=== PATIENT | male | born 1940 | race Caucasian/White ===

== ENCOUNTER 2021-07-27 14:22 | Inpatient (IN) ==
[2021-07-27] MEDS ORDERED: SODIUM CHLORIDE 0.9% 1000ML 1,000 ML IV ONE ×2 (15:00→18:19)
[2021-07-27] MEDS ORDERED: ACETAMINOPHEN 1,000 MG/100 ML VIAL IV STA (15:02)
[2021-07-27 15:41] LABS: Basophils # (auto) 0.02 K/uL (0-0.2); Basophils % (auto) 0.3 %; Hematocrit (blood only) 40.5 % (42-52); Immature Granulocytes # (auto) 0.11 K/uL (0.00-0.02); Immature Granulocytes % (auto) 1.4 %; Lymphocytes # (auto) 0.59 K/uL (1.2-3.4); Lymphocytes % (auto) 7.7 %; Mean Corpuscular Hemoglobin 35.5 pg (25-34); Mean Corpuscular Hgb Conc 34.6 g/dL (32-36); Mean Corpuscular Volume 102.8 fL (80-100); Mean Platelet Volume 11.4 fL (7.4-10.4); Monocytes # (auto) 0.57 K/uL (0.11-0.59); Monocytes % (auto) 7.5 %; Neutrophils # (auto) 6.34 K/uL (1.4-6.5); Neutrophils % (auto) 83.1 %; Platelet Count 103 K/uL (130-400); RDW Coefficient of Variation 15.1 % (11.5-14.5); RDW Standard Deviation 57.2 fL (36.4-46.3); Red Blood Count 3.94 M/uL (4.7-6.1); White Blood Count 7.63 K/uL (4.8-10.8)
--- NOTE | 2021-07-27 15:46 | XRay Report ---
XR chest 1V portable HISTORY: SEPSIS COMPARISON: Chest 1228.11. FINDINGS: No focal lung consolidations to suggest pneumonia. No evidence for pulmonary edema. Mild el evation the right hemidiaphragm. There is a tortuous thoracic aorta. The heart is normal in size. No pleural fusions. No pneumothorax. IMPRESSION: No acute process. ACT 112: Negative or not required by law. Electronically signed by: Poncho Mancera M.D. 07/27/2021 3:44 PM
--- NOTE | 2021-07-27 16:00 | Electrocardiogram Report ---
Test Reason : Blood Pressure : / mmHG Vent. Rate : 099 BPM Atrial Rate : 099 BPM P-R Int : 146 ms QRS Dur : 076 ms QT Int : 362 ms P-R-T Axes : -20 -22 -10 degrees QTc Int : 464 ms Sinus rhythm with Premature supraventricular complexes and with occasional Fusion complexes Nonspecific ST and T wave abnormality Prolonged QT Abnormal ECG When compared with ECG of 19-MAY-2011 06:21, HR has increased by 53 bpm Premature atrial complexes now present Nonspecific ST and T wave abnormality now present Confirmed by Nilay Turner ([id number]) on 07/27/2021 3:59:27 PM Referred By: ED Confirmed By:Nilay Turner
[2021-07-27 16:05] LABS: BUN Creatinine Ratio 26.4 (10-20); Calcium 9.2 mg/dl (8.5-10.1); Creatinine Clr Calc Pharmacy 81.3 ml/min; Est GFR (African American) 91.9 ml/min; Est GFR (Non-African American) 79.3 ml/min; Potassium 3.6 mmol/L (3.5-5.1)
[2021-07-27 16:07] LABS: INR 1.2 (0.9-1.1); Partial Thromboplastin Ratio 1.1; Partial Thromboplastin Time 28.9 Seconds (21.0-31.0); Prothrombin Time 12.9 Seconds (9.0-12.0)
[2021-07-27 16:26] LABS: Albumin Globulin Ratio 1.1 (0.9-2); Albumin Level 3.9 gm/dl (3.4-5.0); Bilirubin,Total 1.1 mg/dl (0.2-1.0); Globulin 3.4 gm/dl (2.5-4.0); Magnesium 1.7 mg/dl (1.7-2.4); Phosphorus 3.2 mg/dl (2.5-4.9); Total Protein 7.3 gm/dl (6.0-8.3)
--- NOTE | 2021-07-27 16:49 | Emergency Department Note ---
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 He also was treated with chemotherapy all of which was given for palliation of pain, Diabetes, hyperlipidemia who presents emergency department via EMS after being found in his home for unknown downtime by his sister. The patient is a poor historian and reports that he has been weak for the past several days. He reported to me that he had been on the ground for 3 days unable to get up but to his RN he had described being in bed for 2 days and only being on the ground since today after attempting to go to the other side of his home to reach a phone to call somebody. He reports he has not had any to eat or drink during this time. Per EMS report he was found covered in urine and stool and his home was in disarray. The patient is fatigued appearing but in no acute distress, afebrile stable vital signs. He appears clinically dry. He has generalized weakness throughout without focal extremity weakness. EKG demonstrates nonspecific ST and T wave abnormalities, no overt ST elevation. Chest x-ray negative for acute cardiopulmonary process. WBC within normal limits. Hemoglobin within normal limits. Platelets 100K within prior range of values. Chemistry without metabolic acidosis. BUN/creatinine> consistent with patient's clinically dry appearance. Lactic acid 1.9 within normal limits. Electrolytes without significant abnormality. AST is elevated at 162, nonspecific and otherwise without significant abnormality. CPK is elevated at 9900. Troponin 0.07, mildly elevated. Procalcitonin is not significantly elevated. Lipase is not elevated. UA is suggestive of infection. No prior cultures available. Treatment initiated with Rocephin at this time. CT of the head, C-spine, chest, abdomen pelvis was performed. This was negative for acute traumatic findings. However, note is made of a 5.4 cm infrarenal AAA with associated short segment contained dissection. I did review this with vascular surgery, Dr. Oneill, who agrees that findings are likely incidental and it is reasonable to admit the patient here for further management of his rhabdomyolsis and uti. Case was discussed with Dr. Cordova, [facility] hospitalist, who will evaluate the patient for admission. Triage Nursing notes reviewed and agree them. Prior medical records reviewed Vital Signs: reviewed and remarkable for no significant abnormalities Differential diagnosis: Infection, dehydration, metabolic abnormality, hypo/hyperglycemia, electrolyte disturbance, anemia, hypoxia, cardiac sources, intracerebral event, toxicologic, neurologic, as well as other pathologies. ER treatment provided: See below. Diagnostics interpreted by me: ECG: Sinus rhythm with PSVC's, [address] and T wave abnormality, no overt ST elevation or depression, QTC 464, QRS 76 Cardiac Monitoring: An order for continuous cardiac monitoring was placed and demonstrated Sinus rhythm with PSVC's, 99 bpm. Laboratory studies: See below Imaging studies: See below Consultation(s): Dr. Oneill, Vascular surgery. Dr. Cordova, [facility] hospitalist, who will evaluate the patient for admission. 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 He also was treated with chemotherapy all of which was given for palliation of pain, Diabetes, hyperlipidemia who presents emergency department via EMS after being found in his home for unknown downtime by his sister. The patient is a poor historian and reports that he has been weak for the past several days. He reported to me that he had been on the ground for 3 days unable to get up but to his RN he had described being in bed for 2 days and only being on the ground since today after attempting to go to the other side of his home to reach a phone to call somebody. He reports he has not had any to eat or drink during this time. Per EMS report he was found covered in urine and stool and his home was in disarray. ROS: See above HPI for pertinent positives & negatives. A total of 10 systems reviewed and were otherwise negative. VITALS:See Below PHYSICAL EXAMINATION: GENERAL: Awake, alert, acute on chronically ill-appearing, unkempt in no distre ss HENT: Normocephalic, atraumatic. Oropharynx unremarkable. EYES: Normal conjunctiva. Sclera non-icteric. NECK: Supple. No nuchal rigidity. FROM. No JVD. RESPIRATORY: Clear to auscultation. CARDIAC: Regular rate, normal rhythm. Extremities warm and well perfused. Pulses equal. ABDOMEN: Soft, non-distended. No tenderness to palpation. No rebound or guarding. No masses. RECTAL: Deferred. MUSCULOSKELETAL: Chest examination reveals no tenderness. The back is symmetrical on inspection without obvious abnormality. There is no CVA tenderness to palpation. No joint edema. EXTREMITIES: Calves are equal size bilaterally and non-tender. No edema. No discoloration. Compartments are not tense. No pain with passive stretch. NEURO: No focal sensory or motor deficits noted. Generalized weakness through out. SKIN: No rash or jaundice noted. ED COURSE: Critical Care: I have personally spent greater than 35 minutes of critical care time in the direct management of this patient. This includes bedside care, interpretation of diagnostic studies, and testing, discussion with consultants, patient, and family members, and other required patient management activities. This 35 minutes is in excess of all separately billable procedures. Jhonathan Mims MD Past Med/Surg History Medical History Adverse anesthesia outcome "nausea" BPH with elevated PSA Diabetes Hypercholesteremia Hypertension Prostate cancer Secondary carcinoma of bone Surgical History History of hernia surgery Family History Uncle Prostate cancer Grandfather Prostate cancer Social History Smoking Status: Former smoker Second Hand Exposure: No; Do You Dip or Chew Tobacco: No; Tobacco Cessation Education Requested by Patient: No Hx Alcohol Use: Yes Alcohol type: beer, wine and hard liquor Hx Substance Use: No Preferred Language: Icelandic Rand Maker Required: No Beliefs That Will Affect Care: None marital status: Current Living Situation: Alone Current Living Situation Comment: Lives in a basement apt alone; kitchen on upper level Other Information That Helps Us Care for You: No Feels Safe at Home: Yes Safety Concerns: Feels Safe At This Time Assistive Devices: Denture - Upper, Denture - Lower and Hearing Aid - Bilateral Allergies Allergies Allergy/AdvReac Type Severity Reaction Status Date / Time meperidine Allergy Unknown Unknown Verified 07/27/21 18:31 morphine Allergy Unknown Unknown Verified 07/27/21 18:31 Home Meds Home Medications Medication Instructions Recorded Confirmed simvastatin 40 mg tablet 40 mg PO DAILY 08/27/19 07/27/21 tamsulosin 0.4 mg capsule 0.4 mg PO BID cap 08/27/19 07/27/21 alogliptin 12.5 mg tablet 12.5 mg PO QAM 07/27/21 07/27/21 aspirin 81 mg tablet,delayed 81 mg PO DAILY 07/27/21 07/27/21 release dimenhydrinate 50 mg tablet 50 mg PO DIRECTED PRN 07/27/21 07/27/21 (Dramamine) doxepin 6 mg tablet 6 mg PO HS PRN 07/27/21 07/27/21 empagliflozin 25 mg tablet 25 mg PO DAILY 07/27/21 07/27/21 hydrocodone 5 mg-acetaminophen 325 1 tab PO Q4H PRN 07/27/21 07/27/21 mg tablet lisinopril 20 mg tablet 20 mg PO BID 07/27/21 07/27/21 Previous Rx's Medication Instructions Recorded oxybutynin chloride 10 mg 10 mg PO DAILY #30 tab 01/14/20 tablet,extended release 24 hr Results & Data (ED) Vital Signs Vital Signs - 24 hr 07/27/21 14:39 07/27/21 15:00 07/27/21 16:12 Temperature 36.9 C Temperature Source Oral Pulse Rate 102 H Pulse Rate [Left] 80 Pulse Rate from SpO2 Sensor Pulse Rhythm Regular Pulse Rhythm [Left] Regular Pulse Strength Normal Pulse Strength [Left] Normal Respiratory Rate 18 18 Respiratory Effort / Characteristics Non-Labored Spontaneous Non-Labored Spontaneous Non-Labored Spontaneous Respiratory Depth Normal Normal Respiratory Pattern Regular Regular Blood Pressure 120/72 Blood Pressure [Right Arm] 102/70 Blood Pressure Mean 88 Blood Pressure Mean [Right Arm] 80 Blood Pressure Position Lying Blood Pressure Position [Right Arm] Lying Pulse Oximetry 97 100 99 Oxygen Delivery Method Room Air Room Air Room Air Sepsis Recent Fever Within 48 Hours No Sepsis New/Unexplained Change in Mental Status N/A Sepsis Action Taken by Nursing No Action Required 07/27/21 16:40 07/27/21 17:48 07/27/21 18:29 Temperature Temperature Source Pulse Rate 90 92 H Pulse Rate [Left] 90 Pulse Rate from SpO2 Sensor 88 Pulse Rhythm Regular Pulse Rhythm [Left] Pulse Strength Pulse Strength [Left] Respiratory Rate 20 19 Respiratory Effort / Characteristics Respiratory Depth Respiratory Pattern Blood Pressure 102/70 93/67 L Blood Pressure [Right Arm] 89/63 L Blood Pressure Mean 80 75 Blood Pressure Mean [Right Arm] 71 Blood Pressure Position Blood Pressure Position [Right Arm] Pulse Oximetry 96 95 94 Oxygen Delivery Method Room Air Sepsis Recent Fever Within 48 Hours Sepsis New/Unexplained Change in Mental Status Sepsis Action Taken by Nursing 07/27/21 18:56 Temperature Temperature Source Pulse Rate Pulse Rate [Left] 84 Pulse Rate from SpO2 Sensor Pulse Rhythm Pulse Rhythm [Left] Regular Pulse Strength Pulse Strength [Left] Normal Respiratory Rate 18 Respiratory Effort / Characteristics Non-Labored Spontaneous Respiratory Depth Normal Respiratory Pattern Regular Blood Pressure Blood Pressure [Right Arm] 106/56 L Blood Pressure Mean Blood Pressure Mean [Right Arm] 72 Blood Pressure Position Blood Pressure Position [Right Arm] Lying Pulse Oximetry 94 Oxygen Delivery Method Room Air Sepsis Recent Fever Within 48 Hours Sepsis New/Unexplained Change in Mental Status Sepsis Action Taken by Nursing Laboratory Data Attestation: I reviewed the patient's lab results. Result diagrams: 07/27/21 15:22 07/27/21 15:22 Lab Results 07/27/21 07/27/21 07/27/21 Range/Units 15:12 15:22 15:22 WBC 7.63 (4.8-10.8) K/uL RBC 3.94 L (4.7-6.1) M/uL Hgb 14.0 (14.0-18.0) g/dL Hct 40.5 L (42-52) % MCV 102.8 H (80-100) fL MCH 35.5 H (25-34) pg MCHC 34.6 (32-36) g/dL RDW Std Deviation 57.2 H (36.4-46.3) fL RDW Coeff of Krystyna 15.1 H (11.5-14.5) % Plt Count 103 L (130-400) K/uL MPV 11.4 H (7.4-10.4) fL Immature Gran % (Auto) 1.4 % Neut % (Auto) 83.1 % Lymph % (Auto) 7.7 % Harris % (Auto) 7.5 % Eos % (Auto) 0.0 % Baso % (Auto) 0.3 % Neut # (Auto) 6.34 (1.4-6.5) K/uL Lymph # (Auto) 0.59 L (1.2-3.4) K/uL Harris # (Auto) 0.57 (0.11-0.59) K/uL Eos # (Auto) 0.00 (0-0.5) K/uL Baso # (Auto) 0.02 (0-0.2) K/uL Immature Gran # (Auto) 0.11 H (0.00-0.02) K/uL PT 12.9 H (9.0-12.0) Seconds INR 1.2 H (0.9-1.1) APTT 28.9 (21.0-31.0) Seconds PTT Ratio 1.1 Sodium (136-145) mmol/L Potassium (3.5-5.1) mmol/L Chloride (98-107) mmol/L Carbon Dioxide (21-32) mmol/L Anion Gap (3-11) BUN (6-23) mg/dl Creatinine (0.6-1.4) mg/dl Est Cr Clr Drug Dosing ml/min Est GFR ( Amer) ml/min Est GFR (Non-Af Amer) ml/min BUN/Creatinine Ratio (10-20) Glucose (70-99(Fasting)) mg/dl Lactate (0.4-2.0) mmol/L Calcium (8.5-10.1) mg/dl Phosphorus (2.5-4.9) mg/dl Magnesium (1.7-2.4) mg/dl Total Bilirubin (0.2-1.0) mg/dl AST (13-39) U/L ALT (7-52) U/L Alkaline Phosphatase (34-104) U/L Total Creatine Kinase (30-223) U/L Troponin I (0-0.04) ng/ml Total Protein (6.0-8.3) gm/dl Albumin (3.4-5.0) gm/dl Globulin (2.5-4.0) gm/dl Albumin/Globulin Ratio (0.9-2) Lipase (11-82) U/L Procalcitonin (0-0.5) ng/ml Urine Color Urine Appearance (Clear) Urine pH (4.5-7.5) Ur Specific [place] (1.000-1.030) Urine Protein (Negative) Urine Glucose (UA) (Negative) Urine Ketones (Negative) Urine Blood (Negative) Urine Nitrite (Negative) Urine Bilirubin (Negative) Urine Urobilinogen (Negative) Ur Leukocyte Esterase (Negative) Urine WBC (Auto) (0-5) /hpf Urine RBC (Auto) (0-4) /hpf U Hyaline Cast (Auto) (0-5) /lpf U Epithel Cells (Auto) (0-5) /lpf Urine Bacteria (Auto) (Negative) WBC Casts (0) /lpf Urine Mucus (None Prsent) Urine Yeast SARS-CoV-2, RNA, NAAT NEGATIVE (NEGATIVE) 07/27/21 07/27/21 07/27/21 Range/Units 15:22 15:22 15:22 WBC (4.8-10.8) K/uL RBC (4.7-6.1) M/uL Hgb (14.0-18.0) g/dL Hct (42-52) % MCV (80-100) fL MCH (25-34) pg MCHC (32-36) g/dL RDW Std Deviation (36.4-46.3) fL RDW Coeff of Krystyna (11.5-14.5) % Plt Count (130-400) K/uL MPV (7.4-10.4) fL Immature Gran % (Auto) % Neut % (Auto) % Lymph % (Auto) % Harris % (Auto) % Eos % (Auto) % Baso % (Auto) % Neut # (Auto) (1.4-6.5) K/uL Lymph # (Auto) (1.2-3.4) K/uL Harris # (Auto) (0.11-0.59) K/uL Eos # (Auto) (0-0.5) K/uL Baso # (Auto) (0-0.2) K/uL Immature Gran # (Auto) (0.00-0.02) K/uL PT (9.0-12.0) Seconds INR (0.9-1.1) APTT (21.0-31.0) Seconds PTT Ratio Sodium 134 L (136-145) mmol/L Potassium 3.6 (3.5-5.1) mmol/L Chloride 102 (98-107) mmol/L Carbon Dioxide 22 (21-32) mmol/L Anion Gap 10 (3-11) BUN 24 H (6-23) mg/dl Creatinine 0.91 (0.6-1.4) mg/dl Est Cr Clr Drug Dosing 81.3 ml/min Est GFR ( Amer) 91.9 ml/min Est GFR (Non-Af Amer) 79.3 ml/min BUN/Creatinine Ratio 26.4 H (10-20) Glucose 180 H (70-99(Fasting)) mg/dl Lactate 1.9 (0.4-2.0) mmol/L Calcium 9.2 (8.5-10.1) mg/dl Phosphorus 3.2 (2.5-4.9) mg/dl Magnesium 1.7 (1.7-2.4) mg/dl Total Bilirubin 1.1 H (0.2-1.0) mg/dl AST 162 H (13-39) U/L ALT 51 (7-52) U/L Alkaline Phosphatase 37 (34-104) U/L Total Creatine Kinase 9936 H (30-223) U/L Troponin I 0.07 H* (0-0.04) ng/ml Total Protein 7.3 (6.0-8.3) gm/dl Albumin 3.9 (3.4-5.0) gm/dl Globulin 3.4 (2.5-4.0) gm/dl Albumin/Globulin Ratio 1.1 (0.9-2) Lipase 9 L (11-82) U/L Procalcitonin 0.39 (0-0.5) ng/ml Urine Color Urine Appearance (Clear) Urine pH (4.5-7.5) Ur Specific [place] (1.000-1.030) Urine Protein (Negative) Urine Glucose (UA) (Negative) Urine Ketones (Negative) Urine Blood (Negative) Urine Nitrite (Negative) Urine Bilirubin (Negative) Urine Urobilinogen (Negative) Ur Leukocyte Esterase (Negative) Urine WBC (Auto) (0-5) /hpf Urine RBC (Auto) (0-4) /hpf U Hyaline Cast (Auto) (0-5) /lpf U Epithel Cells (Auto) (0-5) /lpf Urine Bacteria (Auto) (Negative) WBC Casts (0) /lpf Urine Mucus (None Prsent) Urine Yeast SARS-CoV-2, RNA, NAAT (NEGATIVE) 07/27/21 Range/Units 16:49 WBC (4.8-10.8) K/uL RBC (4.7-6.1) M/uL Hgb (14.0-18.0) g/dL Hct (42-52) % MCV (80-100) fL MCH (25-34) pg MCHC (32-36) g/dL RDW Std Deviation (36.4-46.3) fL RDW Coeff of Krystyna (11.5-14.5) % Plt Count (130-400) K/uL MPV (7.4-10.4) fL Immature Gran % (Auto) % Neut % (Auto) % Lymph % (Auto) % Harris % (Auto) % Eos % (Auto) % Baso % (Auto) % Neut # (Auto) (1.4-6.5) K/uL Lymph # (Auto) (1.2-3.4) K/uL Harris # (Auto) (0.11-0.59) K/uL Eos # (Auto) (0-0.5) K/uL Baso # (Auto) (0-0.2) K/uL Immature Gran # (Auto) (0.00-0.02) K/uL PT (9.0-12.0) Seconds INR (0.9-1.1) APTT (21.0-31.0) Seconds PTT Ratio Sodium (136-145) mmol/L Potassium (3.5-5.1) mmol/L Chloride (98-107) mmol/L Carbon Dioxide (21-32) mmol/L Anion Gap (3-11) BUN (6-23) mg/dl Creatinine (0.6-1.4) mg/dl Est Cr Clr Drug Dosing ml/min Est GFR ( Amer) ml/min Est GFR (Non-Af Amer) ml/min BUN/Creatinine Ratio (10-20) Glucose (70-99(Fasting)) mg/dl Lactate (0.4-2.0) mmol/L Calcium (8.5-10.1) mg/dl Phosphorus (2.5-4.9) mg/dl Magnesium (1.7-2.4) mg/dl Total Bilirubin (0.2-1.0) mg/dl AST (13-39) U/L ALT (7-52) U/L Alkaline Phosphatase (34-104) U/L Total Creatine Kinase (30-223) U/L Troponin I (0-0.04) ng/ml Total Protein (6.0-8.3) gm/dl Albumin (3.4-5.0) gm/dl Globulin (2.5-4.0) gm/dl Albumin/Globulin Ratio (0.9-2) Lipase (11-82) U/L Procalcitonin (0-0.5) ng/ml Urine Color Welcome Urine Appearance Turbid A (Clear) Urine pH 5.0 (4.5-7.5) Ur Specific [place] 1.020 (1.000-1.030) Urine Protein 2+ H (Negative) Urine Glucose (UA) Trace H (Negative) Urine Ketones 1+ H (Negative) Urine Blood 3+ H (Negative) Urine Nitrite Positive A (Negative) Urine Bilirubin 1+ H (Negative) Urine Urobilinogen Negative (Negative) Ur Leukocyte Esterase 2+ H (Negative) Urine WBC (Auto) >30 H (0-5) /hpf Urine RBC (Auto) >30 H (0-4) /hpf U Hyaline Cast (Auto) 10-30 H (0-5) /lpf U Epithel Cells (Auto) >30 H (0-5) /lpf Urine Bacteria (Auto) 4+ H (Negative) WBC Casts 1-5 H (0) /lpf Urine Mucus Present A (None Prsent) Urine Yeast Not Reportable SARS-CoV-2, RNA, NAAT (NEGATIVE) Administered Medications Acetaminophen (Acetaminophen 325 Mg Tab) 650 mg PO Q4H PRN PRN Reason: Pain or Fever Stop: 08/26/21 21:58 Last Admin: 07/27/21 22:42 Dose: 650 mg Documented by: [id number] Hydrocodone Bitart/Acetaminophen (Hydrocodone/Acetamophen 5/325mg Tab) 1 tab PO Q4H PRN PRN Reason: Pain Stop: 08/11/21 00:56 Last Admin: 07/28/21 01:55 Dose: 1 tab Documented by: [id number] Heparin Sodium (Porcine) (Heparin Sod 5,000 Unit/0.5 Ml Vial) 5,000 units SQ Q8 MICHAEL Stop: 08/26/21 21:59 Last Admin: 07/27/21 23:31 Dose: 5,000 units Documented by: [id number] Sodium Chloride (Nss 1000ml) 1,000 mls @ 150 mls/hr IV .Q6H40M [facility] Stop: 07/28/21 11:18 Last Admin: 07/27/21 22:30 Dose: 150 mls/hr Documented by: [id number] Insulin Aspart (Insulin Aspart Per Unit) 0 units SC ACHS [facility] Stop: 08/26/21 21:58 Last Admin: 07/27/21 23:29 Dose: 5 units Documented by: [id number] Cosigned by: [id number] Insulin Glargine (Insulin Glargine Solostar 100 Units/Ml 3 Ml Pen) 9 units SC BID [facility] Stop: 08/26/21 21:58 Last Admin: 07/27/21 23:28 Dose: 9 units Documented by: [id number] Cosigned by: [id number] Menthol (Cough Drop (Sugar Free) Kin 24 Kin/1 Box) 1 kin BUCCAL PRN PRN PRN Reason: Sore Throat Stop: 08/26/21 22:16 Last Admin: 07/27/21 22:42 Dose: 1 kin Documented by: [id number] Tamsulosin HCl (Tamsulosin Hcl 0.4 Mg Cap) 0.4 mg PO BID [facility] Stop: 08/26/21 21:58 Last Admin: 07/27/21 23:31 Dose: 0.4 mg Documented by: [id number] Discontinued Medications Sodium Chloride (Nss 1000ml) 1,000 mls @ 999 mls/hr IV .Q1H1M ONE Stop: 07/27/21 16:00 Last Infusion: 07/27/21 16:24 Dose: 0 mls/hr Documented by: [id number] Admin: 07/27/21 15:23 Dose: 999 mls/hr Documented by: [id number] Acetaminophen (Ofirmev) 1,000 mg in 100 mls @ 400 mls/hr IV NOW STA Stop: 07/27/21 15:16 Last Infusion: 07/27/21 16:24 Dose: 0 mls/hr Documented by: [id number] Admin: 07/27/21 15:24 Dose: 400 mls/hr Documented by: [id number] Sodium Chloride (Nss 1000ml) 1,000 mls @ 999 mls/hr IV .Q1H1M ONE Stop: 07/27/21 19:19 Last Infusion: 07/27/21 20:47 Dose: 0 mls/hr Documented by: [id number] Admin: 07/27/21 19:33 Dose: 999 mls/hr Documented by: [id number] Ceftriaxone Sodium (Rocephin) 2,000 mg in 70 mls @ 140 mls/hr IV NOW STA Stop: 07/27/21 18:48 Last Infusion: 07/27/21 19:32 Dose: 0 mls/hr Documented by: [id number] Admin: 07/27/21 18:57 Dose: 140 mls/hr Documented by: [id number] Ioversol (Optiray 320 100ml) 94 ml IV ONCE ONE Stop: 07/27/21 17:13 Last Admin: 07/27/21 17:12 Dose: 94 ml Documented by: [id number] Imaging Data Radiologist's Impression: Abdomen/Pelvis CT 07/27/21 15:00 CT abd pelvis IV con only CLINICAL HISTORY: Weakness. Patient found laying in bed for 2 days. Bruising. COMPARISON STUDY: 08/13/2019 CT DOSE: TECHNIQUE: Standard CT of the Abdomen and Pelvis was performed with IV contrast. A dose lowering technique was utilized adhering to the principles of ALARA. Contrast Volume: Optiray 320, 94 ml. The patient did not receive oral contrast. FINDINGS: There is breathing and patient motion artifact present. Abdominal cavity: There is no evidence for abdominal mass, adenopathy or ascites. There is a small ventral anterior abdominal wall hernia above the umbilicus containing mesenteric fat. No bowel loop herniation is seen. Liver: There is homogeneous attenuation of the liver parenchyma. There is no evidence for enhancing mass lesion. Spleen: There is homogeneous attenuation of the splenic parenchyma. There is no enhancing mass lesion. Pancreas: There is homogeneous attenuation of the pancreatic parenchyma. There is no evidence for mass lesion or peripancreatic fluid collection. Gall Bladder: The gallbladder is well distended with no evidence for intraluminal calculi, wall thickening or pericholecystic edema. Adrenal glands: There are stable low-attenuation adrenal nodules characteristic of adenomas. There is no evidence for enhancing mass lesion. Kidneys: There is homogeneous attenuation of the renal parenchyma bilaterally. There is no evidence for renal calculus or hydronephrosis. There is no evidence for enhancing mass. Sharply defined simple left renal cyst is present with no further follow-up necessary for this benign finding. Bowel: The bowel loops are normally placed within the abdomen and pelvis without evidence for dilatation or obstruction. However, there is evidence for mild fecal stasis. Mild fecal impaction without evidence for obstruction. There is mild sigmoid diverticulosis without evidence for diverticulitis. There are no inflammatory changes present. There is no evidence for free air. There is no evidence for an inflamed appendix. Bladder: Rodrigues catheter is in place. : There is no evidence for pelvic mass or adenopathy. There is no evidence for pelvic ascites. Vasculature: There is a 5.4 cm infrarenal abdominal aortic aneurysm with large thrombus present. There is a small partial dissection within the thrombus as seen on images 291 to 318. There is no evidence for leakage. It does not extend more proximally or distally. Extensive atherosclerotic calcification is also present.. Osseous structures: There is no acute osseous pathology. Degenerative changes are seen within the spine and both hips. IMPRESSION: 1. 5.4 cm infrarenal abdominal aortic aneurysm with a short segment of contained dissection. No evidence for leakage. 2. Mild fecal impaction and fecal stasis without evidence for dilatation or obstruction. 3. No other evidence for acute intra-abdominal pelvic abnormality. 4. Additional nonacute findings are delineated above. ACT 112: Negative or not required by law. Electronically signed by: Piter Villeda M.D. 07/27/2021 5:[address] 07/27/21 15:00 CT cervical spine wo con CLINICAL HISTORY: Weakness. Patient found laying in bed for 2 days. Bruising COMPARISON STUDY: No previous studies for comparison. CT DOSE: TECHNIQUE: Standard CT of the Cervical Spine was performed without IV contrast. A dose lowering technique was utilized adhering to the principles of ALARA. FINDINGS: Bones: The bones are osteopenic. There is no evidence for an acute fracture or malalignment. The heights of the vertebral bodies are maintained. The vertebral bodies are in anatomic alignment. The odontoid is intact. Degenerative changes are seen at the atlantoaxial articulation. Disc spaces: Marked disc space narrowing is present from C3 through C7 with endplate sclerosis and osteophyte formation. Apophyseal joints: Degenerative apophyseal joint disease is also seen throughout the cervical spine. Soft tissues: The prevertebral soft tissues are within normal limits. IMPRESSION: 1. Osteopenia with no acute osseous pathology. 2. Marked degenerative disc and degenerative joint disease. ACT 112: Negative or not required by law. Electronically signed by: Piter Villeda M.D. 07/27/2021 5:[address] 07/27/21 15:00 CT chest diagnostic w con CLINICAL HISTORY: Weakness. Patient found lying in bed for 2 days. Bruising. COMPARISON STUDY: 08/13/2019 CT DOSE: TECHNIQUE: Standard CT of the Chest was performed with IV contrast. A dose lowering technique was utilized adhering to the principles of ALARA. Contrast Volume: Optiray 320, 94 ml FINDINGS: The study is limited due to breathing motion artifact. Airway: The airway is clear. No endobronchial lesion is identified. Lungs: The lungs are clear of acute alveolar opacities, air bronchograms or pulmonary nodules. There is mild dependent edema at the lung bases bilaterally. Pleura: There is no evidence for pleural effusion. There is no evidence for pneumothorax. Mediastinum: There is no evidence for pathologic adenopathy. The heart size is within normal limits. The thoracic aorta is within normal limits. There is no evidence for pericardial effusion. Osseous structures: There is no acute osseous pathology. A bone island is again seen with what appears to be the T8 vertebral body on the left.1 IMPRESSION: No acute chest disease. ACT 112: Negative or not required by law. Electronically signed by: Piter Villeda M.D. 07/27/2021 5:28 PM Chest X-Ray 07/27/21 15:00 XR chest 1V portable HISTORY: SEPSIS COMPARISON: Chest 1228.11. FINDINGS: No focal lung consolidations to suggest pneumonia. No evidence for pulmonary edema. Mild elevation the right hemidiaphragm. There is a tortuous thoracic aorta. The heart is normal in size. No pleural fusions. No pneumothorax. IMPRESSION: No acute process. ACT 112: Negative or not required by law. Electronically signed by: Poncho Mancera M.D. 07/27/2021 3:[address] 07/27/21 15:00 CT head/brain wo con CLINICAL HISTORY: Weakness. Patient found laying in bed for 2 days. COMPARISON STUDY: No previous studies for comparison. CT DOSE: 3335.78 mGy.cm TECHNIQUE: Standard CT of the Brain was performed without IV contrast. A dose lowering technique was utilized adhering to the principles of ALARA. FINDINGS: Extraaxial space: There is no evidence for subdural hematoma. There are no extra-axial fluid collections. Ventricles and cisterns: The ventricles are mildly dilated bilaterally. There is no evidence for midline shift or mass effect. Parenchyma: There is no subarachnoid or intraparenchymal hemorrhage. There is no evidence for an acute infarct or cerebral edema. There is mild cerebral cortical atrophy and decreased attenuation in the periventricular white matter representing remote small vessel disease. There are no gross mass lesions. Osseous structures: There is no evidence for an acute fracture. The visualized paranasal sinuses are clear. The mastoid air cells are clear bilaterally. Soft tissues: There is no evidence for focal soft tissue swelling. IMPRESSION: 1. No acute intracerebral pathology. 2. Cerebral cortical atrophy and remote small vessel disease. ACT 112: Negative or not required by law. Electronically signed by: Piter Villeda M.D. 07/27/2021 5:19 PM Discharge Plan Visit Data Chief Complaint: Weakness ED Provider: Jhonathan Mims Discharge Problem: Rhabdomyolysis, Elevated troponin, AAA (abdominal aortic aneurysm), Acute UTI, Aortic dissection, abdominal Patient Disposition: Admitted As Inpatient Discharge Instructions Interventions: ED Discharge Assessment Last Done: 07/27/21 21:21 Discharge Problem: Rhabdomyolysis Qualifiers: Rhabdomyolysis type: non-traumatic Qualified Code(s): M62.82 - Rhabdomyolysis AAA (abdominal aortic aneurysm) Qualifiers: Presence of rupture: without rupture Qualified Code(s): I71.4 - Abdominal aortic aneurysm, without rupture
[2021-07-27 17:02] LABS: Appearance Urine Turbid (Clear); Bacteria Urine Automated 4+ (Negative); Blood Urine 3+ (Negative); Color Urine Orange; Epithelial Cell Urine Auto >30 /lpf (0-5); Glucose Urine UA Trace (Negative); Ketones Urine 1+ (Negative); Leukocyte Esterase Urine 2+ (Negative); Nitrite Urine Positive (Negative); Protein Urine 2+ (Negative); RBC Urine Automated >30 /hpf (0-4); Urobilinogen Urine Negative (Negative); WBC Urine Automated >30 /hpf (0-5)
[2021-07-27 17:04] LABS: Bilirubin Urine 1+ (Negative)
[2021-07-27] MEDS ORDERED: OPTIRAY 320 100ml IV ONE (17:12)
--- NOTE | 2021-07-27 17:20 | CT Scan Report ---
CT head/brain wo con CLINICAL HISTORY: Weakness. Patient found laying in bed for 2 days. COMPARISON STUDY: No previous studies for comparison. CT DOSE: 3335.78 mGy.cm TECHNIQUE: Standard CT of the Brain was performed without IV contrast. A dose lowering technique was utilized adhering to the principles of ALARA. FINDINGS: Extraaxial space: There is no evidence for subdural hematoma. There are no extra-axial fluid collecti ons. Ventricles and cisterns: The ventricles are mildly dilated bilaterally. There is no evidence for midl ine shift or mass effect. Parenchyma: There is no subarachnoid or intraparenchymal hemorrhage. There is no evidence for an acut e infarct or cerebral edema. There is mild cerebral cortical atrophy and decreased attenuation in the periventricular white matter representing remote small vessel disease. There are no gross mass lesio ns. Osseous structures: There is no evidence for an acute fracture. The visualized paranasal sinuses are clear. The mastoid air cells are clear bilaterally. Soft tissues: There is no evidence for focal soft tissue swelling. IMPRESSION: 1. No acute intracerebral pathology. 2. Cerebral cortical atrophy and remote small vessel disease. ACT 112: Negative or not required by law. Electronically signed by: Piter Villeda M.D. 07/27/2021 5:19 PM
--- NOTE | 2021-07-27 17:23 | CT Scan Report ---
CT cervical spine wo con CLINICAL HISTORY: Weakness. Patient found laying in bed for 2 days. Bruising COMPARISON STUDY: No previous studies for comparison. CT DOSE: TECHNIQUE: Standard CT of the Cervical Spine was performed without IV contrast. A dose lowering monica hnique was utilized adhering to the principles of ALARA. FINDINGS: Bones: The bones are osteopenic. There is no evidence for an acute fracture or malalignment. The heig hts of the vertebral bodies are maintained. The vertebral bodies are in anatomic alignment. The odont oid is intact. Degenerative changes are seen at the atlantoaxial articulation. Disc spaces: Marked disc space narrowing is present from C3 through C7 with endplate sclerosis and os teophyte formation. Apophyseal joints: Degenerative apophyseal joint disease is also seen throughout the cervical spine. Soft tissues: The prevertebral soft tissues are within normal limits. IMPRESSION: 1. Osteopenia with no acute osseous pathology. 2. Marked degenerative disc and degenerative joint disease. ACT 112: Negative or not required by law. Electronically signed by: Piter Villeda M.D. 07/27/2021 5:22 PM
--- NOTE | 2021-07-27 17:29 | CT Scan Report ---
CT chest diagnostic w con CLINICAL HISTORY: Weakness. Patient found lying in bed for 2 days. Bruising. COMPARISON STUDY: 08/13/2019 CT DOSE: TECHNIQUE: Standard CT of the Chest was performed with IV contrast. A dose lowering technique was u tilized adhering to the principles of ALARA. Contrast Volume: Optiray 320, 94 ml FINDINGS: The study is limited due to breathing motion artifact. Airway: The airway is clear. No endobronchial lesion is identified. Lungs: The lungs are clear of acute alveolar opacities, air bronchograms or pulmonary nodules. There is mild dependent edema at the lung bases bilaterally. Pleura: There is no evidence for pleural effusion. There is no evidence for pneumothorax. Mediastinum: There is no evidence for pathologic adenopathy. The heart size is within normal limits. The thoracic aorta is within normal limits. There is no evidence for pericardial effusion. Osseous structures: There is no acute osseous pathology. A bone island is again seen with what appear s to be the T8 vertebral body on the left.1 IMPRESSION: No acute chest disease. ACT 112: Negative or not required by law. Electronically signed by: Piter Villeda M.D. 07/27/2021 5:28 PM
--- NOTE | 2021-07-27 17:41 | CT Scan Report ---
CT abd pelvis IV con only CLINICAL HISTORY: Weakness. Patient found laying in bed for 2 days. Bruising. COMPARISON STUDY: 08/13/2019 CT DOSE: TECHNIQUE: Standard CT of the Abdomen and Pelvis was performed with IV contrast. A dose lowering monica hnique was utilized adhering to the principles of ALARA. Contrast Volume: Optiray 320, 94 ml. The patient did not receive oral contrast. FINDINGS: There is breathing and patient motion artifact present. Abdominal cavity: There is no evidence for abdominal mass, adenopathy or ascites. There is a small ve ntral anterior abdominal wall hernia above the umbilicus containing mesenteric fat. No bowel loop her niation is seen. Liver: There is homogeneous attenuation of the liver parenchyma. There is no evidence for enhancing m ass lesion. Spleen: There is homogeneous attenuation of the splenic parenchyma. There is no enhancing mass lesion . Pancreas: There is homogeneous attenuation of the pancreatic parenchyma. There is no evidence for mas s lesion or peripancreatic fluid collection. Gall Bladder: The gallbladder is well distended with no evidence for intraluminal calculi, wall thick ening or pericholecystic edema. Adrenal glands: There are stable low-attenuation adrenal nodules characteristic of adenomas. There is no evidence for enhancing mass lesion. Kidneys: There is homogeneous attenuation of the renal parenchyma bilaterally. There is no evidence f or renal calculus or hydronephrosis. There is no evidence for enhancing mass. Sharply defined simple left renal cyst is present with no further follow-up necessary for this benign finding. Bowel: The bowel loops are normally placed within the abdomen and pelvis without evidence for dilatat ion or obstruction. However, there is evidence for mild fecal stasis. Mild fecal impaction without ev idence for obstruction. There is mild sigmoid diverticulosis without evidence for diverticulitis. The re are no inflammatory changes present. There is no evidence for free air. There is no evidence for a n inflamed appendix. Bladder: Rodrigues catheter is in place. : There is no evidence for pelvic mass or adenopathy. There is no evidence for pelvic ascites. Vasculature: There is a 5.4 cm infrarenal abdominal aortic aneurysm with large thrombus present. Ther e is a small partial dissection within the thrombus as seen on images 291 to 318. There is no evidenc e for leakage. It does not extend more proximally or distally. Extensive atherosclerotic calcificatio n is also present.. Osseous structures: There is no acute osseous pathology. Degenerative changes are seen within the spi ne and both hips. IMPRESSION: 1. 5.4 cm infrarenal abdominal aortic aneurysm with a short segment of contained dissection. No evide nce for leakage. 2. Mild fecal impaction and fecal stasis without evidence for dilatation or obstruction. 3. No other evidence for acute intra-abdominal pelvic abnormality. 4. Additional nonacute findings are delineated above. ACT 112: Negative or not required by law. Electronically signed by: Piter Villeda M.D. 07/27/2021 5:39 PM
[2021-07-27 17:50] LABS: Mucus Urine Present (None Prsent)
[2021-07-27] MEDS ORDERED: cefTRIAXone SODIUM 2,000 MG/70 ML BAG IV STA (18:19)
--- NOTE | 2021-07-27 18:37 | History & Physical Report ---
Date of Service July 27, 2021 Assessment & Plan (1) Weakness: Plan: Gato Cazares is an 81-year-old male with history of abdominal aortic aneurysm, BPH, prostate cancer with metastasis, no history of cardiac disease who presents after being down for 1 day on the floor with 3 additional days of weakness preceded by chills and sweats. He is found to have a infrarenal abdominal aortic aneurysm of 5.4 cm with small area of contained dissection, was discussed with vascular surgery by ER prior to admission as noted and thought to be incidental. Weakness, ?UTI No leukocytosis Hemoglobin 14 Chronic macrocytosis, folate/B12 pending Sodium 134, potassium normal Bilirubin 1.1, AST 162 acutely elevated, ALT normal CK 9936 Troponin 0.07. EKG w/o territorial ST segment changes UA infected vs contaminated appearing, culture pending. Patient with 2 days of chills prior to onset - BC pending Covid negative Procalcitonin negative -CT-A/P: AAA 5.4cm short segment contained dissection infrarenal. Vascular consulted prior to admit, felt incidental. Recommended patient can be [place] [facility] consult but no acute intervention at this time. Low suspicion for acs -CTA/P: Frequent bacterial stasis without obstruction. No intra-abdominal pelvic abnormality. -CTC-spine: Osteopenia, no acute osseous pathology/fracture. -CTchest: No acute chest disease CThead: No acute intracerebral pathology, peripheral atrophy and remote small vessel disease appreciated CXR: No acute process Patient reports he takes some meds in the morning, and then each pill at night. Is a poor historian of his medications, and says he used to use a pillbox but has not used this in a long time. Does try to manage his own meds. Concern that patient does not have adequate help to manage medications at home. BSG 180 on admission Lactate 1.9 (2) UTI (urinary tract infection): Plan: See above (3) Rhabdomyolysis: Plan: CK 9936, due to being down for an extended period of time ACr 0.91, no history of renal disease or cardiac disease/CHF per patient Received 2 L NSS bolus in ER with improvement in blood pressure, intermittently with soft pressures Continue NSS 150 cc/h BMP daily, CK daily (4) BPH with elevated PSA: Plan: Rodrigues in place Continue tamsulosin, doxepin (5) AAA (abdominal aortic aneurysm): Plan: - See above, CT-A/P: AAA 5.4cm short segment contained dissection infrarenal. Thought to be incidental, recommended for admission and management for weakness as above. Will keep on consult Low suspicion for ACS as cause of weakness - <5cm at last imaging per pt (6) Elevated troponin: Plan: No history of ACS/cardiac disease per patient Troponin 0 0.07 on admission, suspect demand/filtration in the setting of rhabdo EKG without acute territorial ST changes Trend troponin x3 TTE pending - AMANDA held for hypotension (7) Diabetes: Plan: Patient with medication adjustments as outpatient, reports has been peeing a lot for the last year A1c pending Weight-based basal bolus Glargine 9 units twice daily SSI range 1001 40, CF 45, ratio 15 Glucose checks AC/at bedtime Hold home antiglycemic's (8) Hypercholesteremia: Plan: Continue statin Plan: DVT prophylaxis: SCDs/hep Diet: DM Disposition: Medical with telemetry CODE STATUS: DNR/DNI per patient CM consulted, patient manages no meds at home and does not use a pillbox and is somewhat poor historian of medications, and concern that he may not be taking pills accurately. History of Present Illness Primary Care Provider: NO PCP Gato Cazares is an 81-year-old male with history of abdominal aortic aneurysm, BPH, prostate cancer with metastasis, no history of cardiac disease who presents after being down for 1 day on the floor with 3 additional days of weakness preceded by chills and sweats. He is found to have a infrarenal abdominal aor tic aneurysm of 5.4 cm with small area of contained dissection, was discussed with vascular surgery by ER prior to admission as noted and thought to be incidental. Admit with found down, weakness, unclear downtime. Rhabdo and UTI. Poor historian. Weak few days, told ER down 3 nurse in bed 2 then down for 1. EMS found home in disarray covered in stool/urine. 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 Recent hx unclear as poor historian. Trop 0.07. Lives alone. Reports he has felt weak. "I woke up so damn cold and shaking several, 3 days ago." Followed by progressive weakness. Shaking when trying to stand. Was shaking 'not like I was cold, just shaking all over'. No cough, no shortness of breath. no nausea, vomiting, or diarrhea No fevers, chills, or sweats today but feels he started of with some chills and sweats No change in sensation in the hands or feet No burning with urination at home. PCP: [facility] for primary care. Pt does not know medications by heart. Keeps medicatiosn in a box Takes lisinopril. Reports sometimes he takes on of each in the morning, sometimes one of each at night. Doesn't use a pill box. Reports Dr. Grant at the [facility] switched his diabetes medicine to help with excessive urination. Has been been a lot more in the last year, no recent change. Reports he still takes Lupron shot every 6 months. Lupron prescribed by Dr. Mustafa per pt Medical History: Reviewed Medications: Reviewed, patient is not a good historian and cannot give all of his medications Surgical History: Reviewed Allergies: Reviewed Social History: Denies tobacco, alcohol, recreational drug use Code Status: DNR/DNI Allergies Allergy/AdvReac Type Severity Reaction Status Date / Time meperidine Allergy Unknown Unknown Verified 07/27/21 18:31 morphine Allergy Unknown Unknown Verified 07/27/21 18:31 Home Medications Medication Instructions Recorded Confirmed Type simvastatin 40 mg tablet 40 mg PO DAILY 08/27/19 09/12/19 History tamsulosin 0.4 mg capsule 0.8 mg PO DAILY cap 08/27/19 09/12/19 History oxybutynin chloride 10 mg 10 mg PO DAILY #30 tab 01/14/20 01/14/20 Rx tablet,extended release 24 hr alogliptin 12.5 mg tablet 12.5 mg PO QAM 07/27/21 07/27/21 History aspirin 81 mg tablet,delayed 81 mg PO DAILY 07/27/21 07/27/21 History release dimenhydrinate 50 mg tablet 50 mg PO DIRECTED PRN 07/27/21 07/27/21 History (Dramamine) doxepin 6 mg tablet 6 mg PO HS PRN 07/27/21 07/27/21 History empagliflozin 25 mg tablet 25 mg PO DAILY 07/27/21 07/27/21 History hydrocodone 5 mg-acetaminophen 325 1 tab PO Q4H PRN 07/27/21 07/27/21 History mg tablet lisinopril 20 mg tablet 20 mg PO BID 07/27/21 07/27/21 History Past Med/Surg History Medical History Adverse anesthesia outcome "nausea" BPH with elevated PSA Diabetes Hypercholesteremia Hypertension Prostate cancer Secondary carcinoma of bone Surgical History History of hernia surgery Family History Uncle Prostate cancer Grandfather Prostate cancer Social History Smoking Status: Never smoker Hx Alcohol Use: No Preferred Language: Irish Beliefs That Will Affect Care: None marital status: Feels Safe at Home: Yes Review of Systems Review of Systems: All systems reviewed & are unremarkable except as noted in HPI & below Physical Exam 2 Physical Exam: General: Awakens easily to voice, alert, oriented to name, place, month, and year.. NAD. Cooperative. HEENT: Atraumatic, normocephalic. Visual acuity grossly intact, hearing grossly intact. Pulm: CTAB A&P. -wheezes, -rales, -rhonchi. Symmetrical chest rise. No increase in work of breathing. No respiratory distress. Cardiac: RRR, -mrg. Radial pulses intact and symmetrical. Abdominal: Nontender, nondistended, soft. BS present. : Rodrigues in place. Left-sided inguinal erythematous patch without purulence/discharge/ulceration. 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 Ankle dorsiflexion/plantar flexion intact bilaterally, bilaterally weak with hip flexion to antigravity 4-/5 bilat. lower extremities with intact sensation to soft touch and cold temperature bilaterally without deficit or asymmetry. Results & Data Results & Data ([facility]) Vital Signs (Past 12 Hours) Vital Signs Temp Pulse Pulse Resp BP BP Pulse Ox 07/27/21 17:48 93/67 L 95 07/27/21 16:40 90 20 102/70 96 07/27/21 16:12 80 18 102/70 99 07/27/21 15:00 100 07/27/21 14:39 36.9 C 102 H 18 120/72 97 PG Care Time/CCT Total # of Minutes Spent Total Time Spent with Patient: Total time spent is greater than 50% in coordination of care (as documented) at patient's floor/unit and/or counseling patient: Coding Level of Care Code 73502 Initial Inpt Care Lvl 3 Diagnoses Weakness R53.1 UTI (urinary tract infection) N39.0 Rhabdomyolysis M62.82 BPH with elevated PSA N40.0; R97.20 AAA (abdominal aortic aneurysm) I71.4 Elevated troponin R77.8 Diabetes E11.9 Hypercholesteremia E78.00
[2021-07-27] MEDS ORDERED: DEXTROSE 50% 50 ML SYRINGE IV PRN (21:59)
[2021-07-27] MEDS ORDERED: CARBOHYDRATES FOR HYPOGLYCEMIA PO PRN (21:59)
[2021-07-27] MEDS ORDERED: GLUCOSE 10 TABS/TUBE PO PRN (21:59)
[2021-07-27] MEDS ORDERED: GLUCAGON FOR INJ 1 MG VIAL SQ PRN (21:59)
[2021-07-27] MEDS ORDERED: ACETAMINOPHEN 325 MG TAB PO PRN (21:59)
[2021-07-27] MEDS ORDERED: GLUCOSE 40% GEL 15 GM TUBE PO PRN (21:59)
[2021-07-27] MEDS ORDERED: COUGH DROP (SUGAR FREE) LOZ 24 LOZ/1 BOX BUCCAL PRN (22:17)
[2021-07-27] MEDS: SODIUM CHLORIDE 0.9% 1000ML 1,000 ML IV SCH (22:30)
[2021-07-27] MEDS: INSULIN GLARGINE SOLOSTAR 100 UNITS/ML 3 ML PEN SC SCH (23:28)
[2021-07-27] MEDS: INSULIN ASPART PER UNIT SC SCH (23:29)
[2021-07-27] MEDS: HEPARIN SOD 5,000 UNIT/0.5 ML VIAL SQ SCH (23:31)
[2021-07-27] MEDS: TAMSULOSIN HCL 0.4 MG CAP PO SCH (23:31)
[2021-07-27 23:50] LABS: Folate (Folic Acid) > 22.30 ng/ml (>5.38)
[2021-07-27 23:51] LABS: Vitamin B12 403 pg/ml (180-914)
[2021-07-28] MEDS: HYDROCODONE/ACETAMOPHEN 5/325MG TAB PO PRN ×3 (01:55→21:33)
[2021-07-28 04:32] LABS: Hematocrit (blood only) 35.5 % (42-52); Hemoglobin 12.1 g/dL (14.0-18.0); Mean Corpuscular Hemoglobin 35.2 pg (25-34); Mean Corpuscular Hgb Conc 34.1 g/dL (32-36); Mean Corpuscular Volume 103.2 fL (80-100); RDW Coefficient of Variation 15.1 % (11.5-14.5); RDW Standard Deviation 57.1 fL (36.4-46.3); Red Blood Count 3.44 M/uL (4.7-6.1); White Blood Count 4.98 K/uL (4.8-10.8)
[2021-07-28 04:53] LABS: Troponin I 0.04 ng/ml (0-0.04)
[2021-07-28 05:05] LABS: Mean Platelet Volume 10.8 fL (7.4-10.4); Platelet Count 84 K/uL (130-400)
[2021-07-28 05:06] LABS: Basophils # (auto) 0.02 K/uL (0-0.2); Basophils % (auto) 0.4 %; Eosinophils # (auto) 0.01 K/uL (0-0.5); Eosinophils % (auto) 0.2 %; Immature Granulocytes # (auto) 0.04 K/uL (0.00-0.02); Immature Granulocytes % (auto) 0.8 %; Lymphocytes # (auto) 0.72 K/uL (1.2-3.4); Lymphocytes % (auto) 14.5 %; Monocytes # (auto) 0.54 K/uL (0.11-0.59); Monocytes % (auto) 10.8 %; Neutrophils # (auto) 3.65 K/uL (1.4-6.5); Neutrophils % (auto) 73.3 %; Platelet Estimate Decreased (Normal)
[2021-07-28 05:29] LABS: Albumin Globulin Ratio 1.2 (0.9-2); Albumin Level 3.4 gm/dl (3.4-5.0); BUN Creatinine Ratio 35.4 (10-20); Bilirubin,Total 0.5 mg/dl (0.2-1.0); Calcium 8.3 mg/dl (8.5-10.1); Creatinine Clr Calc Pharmacy 93.2 ml/min; Est GFR (African American) 98.3 ml/min; Est GFR (Non-African American) 84.8 ml/min; Globulin 2.8 gm/dl (2.5-4.0); Potassium 3.6 mmol/L (3.5-5.1); Total Protein 6.2 gm/dl (6.0-8.3)
[2021-07-28] MEDS: SODIUM CHLORIDE 0.9% 1000ML 1,000 ML IV SCH ×3 (06:01→22:51)
[2021-07-28] MEDS: HEPARIN SOD 5,000 UNIT/0.5 ML VIAL SQ SCH ×2 (06:08→14:19)
[2021-07-28 08:01] LABS: Estimated Average Glucose 189 mg/dl; Hemoglobin A1C 8.2 % (4.5-5.6)
[2021-07-28] MEDS: INSULIN GLARGINE SOLOSTAR 100 UNITS/ML 3 ML PEN SC SCH ×2 (08:33→21:14)
[2021-07-28] MEDS: SIMVASTATIN 40 MG TAB PO SCH (08:34)
[2021-07-28] MEDS: TAMSULOSIN HCL 0.4 MG CAP PO SCH ×2 (08:34→21:14)
[2021-07-28] MEDS: MULTIVITAMIN TAB PO SCH (08:34)
[2021-07-28] MEDS: INSULIN ASPART PER UNIT SC SCH ×4 (08:38→21:17)
--- NOTE | 2021-07-28 08:43 | Hospitalist Progress Note ---
Date of Service July 28, 2021 Assessment & Plan (1) Weakness: Plan: Chills followed by ambulatory dysfunction, weakness -Overall picture appears to be infective and weakness appears systemic rather than neurologic at the moment Likely UTIon Rocephin; continue; if weakness does not improve will consider neurology consult (2) UTI (urinary tract infection): Plan: See above (3) Rhabdomyolysis: Plan: Continue volume (4) BPH with elevated PSA: Plan: DC Rodrigues; continue Flomax (5) AAA (abdominal aortic aneurysm): Plan: - See above, CT-A/P: AAA 5.4cm short segment contained dissection infrarenal. Thought to be incidental, recommended for admission and management for weakness as above. Per H&P vascular already consulted Low suspicion for ACS as cause of weakness - <5cm at last imaging per pt Will need to be followed (6) Elevated troponin: Plan: Do not think significant; follow clinically (7) Diabetes: Plan: Current regimen appears reasonable; continue (8) Hypercholesteremia: Plan: Continue statin (9) HTN (hypertension): Plan: BP on low sideACE inhibitor on hold; follow Plan: DVT prophylaxis: SCDs/hep Diet: DM Disposition: Medical with telemetry CODE STATUS: DNR/DNI per patient CM consulted, patient manages no meds at home and does not use a pillbox and is somewhat poor historian of medications, and concern that he may not be taking pills accurately. Admission and Anticipated Discharge Date Admission Date: July 27, 2021 Subjective Follow-up of presentation of chills followed by progressive ambulatory dy sfunction; hurting all over but otherwise nothing specifically new Physical Exam Physical Exam: Constitutional and general: No acute distress, looks biologic age Head and face: No puffiness, atraumatic Eyes: No scleral icterus, extraocular movements normal Neck: Supple, no JVD Musculoskeletal: No acute joint swelling, no bony abnormalities Skin/dermatologic/integument: No rash, no purpura Hematologic and lymphatic: pallor +, no petechia Gastrointestinal/abdomen: Nondistended, soft, nonacute Neurologic: Cranial nerves intact, lower extremity weakness; light touch intact Psychiatry: Awake, alert, pleasant, communicative Cardiovascular: Heart rhythm regular, no rub, no murmur, no gallop Respiratory: Chest movements equal, no use of accessory muscles, no adventitious sounds Extremities: No edema, no cyanosis Results & Data Results & Data ([facility]) Vital Signs (Past 12 Hours) Vital Signs Temp Pulse Pulse Resp BP BP Pulse Ox 07/28/21 07:32 36.9 C 98 H 18 110/75 92 07/28/21 03:37 36.9 C 86 18 107/75 92 07/27/21 22:57 107 H 07/27/21 22:45 07/27/21 22:00 36.8 C 86 18 106/75 94 07/27/21 21:57 36.8 C 86 18 106/75 94 07/27/21 21:00 87 24 106/77 95 Pulse Ox 07/28/21 07:32 07/28/21 03:37 07/27/21 22:57 07/27/21 22:45 94 07/27/21 22:00 07/27/21 21:57 07/27/21 21:00 PG Care Time/CCT Total # of Minutes Spent Total Time Spent with Patient: Total time spent is greater than 50% in coordination of care (as documented) at patient's floor/unit and/or counseling patient: Coding Level of Care Code 84218 Subseq Hosp Care Lvl 2 Diagnoses Weakness R53.1 UTI (urinary tract infection) N39.0 Rhabdomyolysis M62.82 Rhabdomyolysis type: non-traumatic BPH with elevated PSA N40.0; R97.20 AAA (abdominal aortic aneurysm) I71.4 Presence of rupture: without rupture Elevated troponin R77.8 Diabetes E11.9 Hypercholesteremia E78.00 HTN (hypertension) I10 (1) Rhabdomyolysis Rhabdomyolysis type: non-traumatic Qualified Code(s): M62.82 - Rhabdomyolysis (2) AAA (abdominal aortic aneurysm) Presence of rupture: without rupture Qualified Code(s): I71.4 - Abdominal aortic aneurysm, without rupture
[2021-07-28] MEDS: ASPIRIN 81 MG ECTAB PO SCH (09:35)
--- NOTE | 2021-07-28 13:26 | Consultation ---
Date of Consultation July 28, 2021 Assessment & Plan (1) AAA (abdominal aortic aneurysm): This patient has an AAA which has enlarged from last year. The CTA shows a short dissection through the mural thrombus. This has been shown to be a precursor to future rupture. The AAA is able to be repaired by the endovascular approach. I would like to have him get over this admission and have his CPK return to normal. The elevated CPK can cause injury to his kidneys and the addition of contrast from the repair may put his kidneys at a higher risk for renal impairment. We will plan to see him in the office in two week post d/c. If he should have abdominal pain not related to his bony mets then we will do an emergent repair of his AAA. Thank you very much for letting us participate in the care of this patient. Presence of rupture: without rupture Qualified Code(s): I71.4 - Abdominal aortic aneurysm, without rupture History of Present Illness Reason for Consultation: AAA Attending Physician: Marina Berger MD History of Present Illness This is an 81yo male who has a known AAA. He claims it was 4.9 last year. He was admitted at this time after being down in his house for an unknown period of time. He did have significantly elevated CPK on admission. He has a hx of prostate CA with bone mets. He has been treated with radiation to eliminate bone pain from the mets. His PSA is normal at this point. He complains of generalized pain but he does not remember any abdominal or unusual back pain when his incidence at home occurred. He is being followed for the AAA by the [place] and was to be sent to [facility] for evaluation. He claims he would rather have it done here if possible. Allergies Allergy/AdvReac Type Severity Reaction Status Date / Time meperidine Allergy Unknown Unknown Verified 07/27/21 18:31 morphine Allergy Unknown Unknown Verified 07/27/21 18:31 Home Medications Medication Instructions Recorded Confirmed Type simvastatin 40 mg tablet 40 mg PO DAILY 08/27/19 07/27/21 History tamsulosin 0.4 mg capsule 0.4 mg PO BID cap 08/27/19 07/27/21 History oxybutynin chloride 10 mg 10 mg PO DAILY #30 tab 01/14/20 07/27/21 Rx tablet,extended release 24 hr alogliptin 12.5 mg tablet 12.5 mg PO QAM 07/27/21 07/27/21 History aspirin 81 mg tablet,delayed 81 mg PO DAILY 07/27/21 07/27/21 History release dimenhydrinate 50 mg tablet 50 mg PO DIRECTED PRN 07/27/21 07/27/21 History (Dramamine) doxepin 6 mg tablet 6 mg PO HS PRN 07/27/21 07/27/21 History empagliflozin 25 mg tablet 25 mg PO DAILY 07/27/21 07/27/21 History hydrocodone 5 mg-acetaminophen 325 1 tab PO Q4H PRN 07/27/21 07/27/21 History mg tablet lisinopril 20 mg tablet 20 mg PO BID 07/27/21 07/27/21 History Patient History Medical History Adverse anesthesia outcome "nausea" BPH with elevated PSA Diabetes Hypercholesteremia Hypertension Prostate cancer Secondary carcinoma of bone Surgical History History of hernia surgery Family History Uncle Prostate cancer Grandfather Prostate cancer Social History Smoking Status: Former smoker Second Hand Exposure: No; Do You Dip or Chew Tobacco: No; Tobacco Cessation Education Requested by Patient: No Hx Alcohol Use: Yes Alcohol type: beer, wine and hard liquor Hx Substance Use: No Preferred Language: Malawian Toe Stapler Required: No Beliefs That Will Affect Care: None marital status: Current Living Situation: Alone Current Living Situation Comment: Lives in a basement apt alone; kitchen on upper level Other Information That Helps Us Care for You: No Feels Safe at Home: Yes Safety Concerns: Feels Safe At This Time Assistive Devices: Denture - Upper, Denture - Lower and Hearing Aid - Bilateral Review of Systems Review of Systems: All systems reviewed & are unremarkable except as noted in HPI & below Physical Exam Constitutional: WD/WN, vitals as above Respiratory: normal respiratory effort, lungs clear to auscultation Cardiovascular: RRR, no murmur, no edema Vessels: abdominal aortic pulse present (widened on exam), femoral pulses present and radial pulses present; no carotid bruit Extremities: normal capillary refill Gastrointestinal (Abdomen): Inspection/Auscultation: abdomen normal to inspection; abdomen not distended Percussion/Palpation: abdomen soft; abdomen nontender Musculoskeletal: no cyanosis or clubbing, extremities motor strength 5/5 Neurologic: CN's II-XI intact bilaterally and moves all extremities Psychiatric: Orientation: alert and oriented x 3 Results & Data ([facility]) Vital Signs (Past 12 Hours) Vital Signs Temp Pulse Resp BP Pulse Ox 07/28/21 10:38 36.8 C 92 H 18 113/74 95 07/28/21 07:32 36.9 C 98 H 18 110/75 92 07/28/21 03:37 36.9 C 86 18 107/75 92
[2021-07-28 13:29] LABS: Troponin I 0.07 ng/ml (0-0.04)
[2021-07-28] MEDS ORDERED: VANCOMYCIN HCL 2,000 MG in SODIUM CHLORIDE 0.9% 500 ML IV ONE (13:36)
[2021-07-28] MEDS ORDERED: VANCOMYCIN CONSULT ACTIVE PRN (13:36)
[2021-07-28] MEDS ORDERED: VANCOMYCIN HCL 2,250 MG in SODIUM CHLORIDE 0.9% 500 ML IV ONE (14:00)
--- NOTE | 2021-07-28 14:06 | Pharmacy Report ---
Pharmacy Vanc AUC Short Note - Date of Service July 28, 2021 - Assessment & Plan Assessment 81 year old M receiving empiric vancomycin and ceftriaxone for treatment of possible bacteremia (vs. contamination) and UTI. Pertinent microbiologic data includes: 1 of 2 blood cultures growing gram-positive cocci in clusters, urine culture growing gram-negative bacilli. Day # 1 of antimicrobial therapy. Plan Vancomycin * Loading dose of 2250 mg (~22 mg/kg) IV x 1 * AUC/WILMA is the preferred PK/PD target for vancomycin * AUC guided dosing is effective and associated with decreased risk of nephrotoxicity compared to traditional trough targets * Ordered dose of 1000 mg IV q12h predicted to achieve target AUC/WILMA of 400-600 mg/L.hr and may be associated with a 10 % risk of nephrotoxicity * Will order vancomycin trough once at steady-state and if patient is to remain on vancomycin Ceftriaxone * 2 g IV q24h - appropriate Pharmacy will continue to follow and will adjust dose/frequency as necessary. Thank you.
[2021-07-28] MEDS ORDERED: SODIUM CHLORIDE 0.9% 1000ML 500 ML IV ONE (15:22)
[2021-07-28] MEDS: cefTRIAXone SODIUM 2,000 MG in DEXTROSE 5% 50 ML IV SCH (21:12)
[2021-07-28] MEDS ORDERED: VANCOMYCIN HCL 1,000 MG in SODIUM CHLORIDE 0.9% 250 ML IV SCH (22:00)
[2021-07-28] MEDS ORDERED: HYDROmorphone INJ 0.5 MG/0.5 ML SYR IV STA (22:24)
[2021-07-29] MEDS ORDERED: VANCOMYCIN HCL 1,500 MG in SODIUM CHLORIDE 0.9% 500 ML IV SCH
[2021-07-29] MEDS: HYDROCODONE/ACETAMOPHEN 5/325MG TAB PO PRN ×4 (03:11→23:29)
[2021-07-29] MEDS: SODIUM CHLORIDE 0.9% 1000ML 1,000 ML IV SCH ×3 (05:55→18:47)
[2021-07-29 07:10] LABS: Hematocrit (blood only) 32.4 % (42-52); Hemoglobin 10.6 g/dL (14.0-18.0); Mean Corpuscular Hemoglobin 34.6 pg (25-34); Mean Corpuscular Hgb Conc 32.7 g/dL (32-36); Mean Corpuscular Volume 105.9 fL (80-100); RDW Coefficient of Variation 15.5 % (11.5-14.5); RDW Standard Deviation 59.3 fL (36.4-46.3); Red Blood Count 3.06 M/uL (4.7-6.1); White Blood Count 3.34 K/uL (4.8-10.8)
[2021-07-29 07:19] LABS: Mean Platelet Volume 11.5 fL (7.4-10.4); Platelet Count 79 K/uL (130-400)
[2021-07-29 07:40] LABS: Basophils # (auto) 0.03 K/uL (0-0.2); Basophils % (auto) 0.9 %; Eosinophils # (auto) 0.06 K/uL (0-0.5); Eosinophils % (auto) 1.8 %; Immature Granulocytes # (auto) 0.06 K/uL (0.00-0.02); Immature Granulocytes % (auto) 1.8 %; Lymphocytes % (auto) 26.9 %; Monocytes # (auto) 0.35 K/uL (0.11-0.59); Monocytes % (auto) 10.5 %; Neutrophils # (auto) 1.94 K/uL (1.4-6.5); Neutrophils % (auto) 58.1 %
[2021-07-29 07:49] LABS: Albumin Globulin Ratio 1.2 (0.9-2); Albumin Level 3.1 gm/dl (3.4-5.0); BUN Creatinine Ratio 27.4 (10-20); Bilirubin,Total 0.4 mg/dl (0.2-1.0); Calcium 7.7 mg/dl (8.5-10.1); Creatinine Clr Calc Pharmacy 122.3 ml/min; Est GFR (African American) 108.6 ml/min; Est GFR (Non-African American) 93.7 ml/min; Globulin 2.6 gm/dl (2.5-4.0); Magnesium 1.8 mg/dl (1.7-2.4); Potassium 3.3 mmol/L (3.5-5.1); Total Protein 5.7 gm/dl (6.0-8.3)
[2021-07-29] MEDS: INSULIN ASPART PER UNIT SC SCH ×4 (09:19→21:04)
[2021-07-29] MEDS: ASPIRIN 81 MG ECTAB PO SCH (09:20)
[2021-07-29] MEDS: SIMVASTATIN 40 MG TAB PO SCH (09:20)
[2021-07-29] MEDS: MULTIVITAMIN TAB PO SCH (09:20)
[2021-07-29] MEDS: INSULIN GLARGINE SOLOSTAR 100 UNITS/ML 3 ML PEN SC SCH ×2 (09:20→21:05)
[2021-07-29] MEDS: TAMSULOSIN HCL 0.4 MG CAP PO SCH ×2 (09:20→19:39)
[2021-07-29] MEDS ORDERED: POTASSIUM CHLORIDE 20 MEQ/15 ML UDC PO STA (10:15)
--- NOTE | 2021-07-29 10:28 | Hospitalist Progress Note ---
Date of Service July 29, 2021 Assessment & Plan (1) Weakness: Plan: Chills followed by ambulatory dysfunction, weakness -Overall picture appears to be infective and weakness appears systemic rather than neurologic at the moment Muscle movement, limb movement betterobserve Likely UTIon Rocephin; Klebsiella in urineRocephin sensitive Blood culture appears contaminant; pharmacy communicated 1 out of 4 and staph aureus PCR negative (2) UTI (urinary tract infection): Plan: See above (3) Rhabdomyolysis: Plan: Continue volume; cut back to 125 cc/h; CK in a.m. (4) BPH with elevated PSA: Plan: DC Rodrigues; continue Flomax (5) AAA (abdominal aortic aneurysm): Plan: -Vascular surgery following; addendum reports acute dissection, vascular surgery aware (6) Elevated troponin: Plan: Do not think significant; follow clinically (7) Diabetes: Plan: Current regimen appears reasonable; continue (8) Hypercholesteremia: Plan: Continue statin (9) HTN (hypertension): Plan: BP on low sideACE inhibitor on hold; follow Plan: Follow anemia, thrombocytopenia, mild leukopenia; hypokalemia notedreplace potassium CODE STATUS: DNR/DNI per patient CM consulted, patient manages no meds at home and does not use a pillbox and is somewhat poor historian of medications, and concern that he may not be taking pills accurately. Admission and Anticipated Discharge Date Admission Date: July 27, 2021 Subjective Follow-up of presentation of chills followed by progressive ambulatory dysfunction; states he had a rough night but could not articulate anything specific Physical Exam Physical Exam: Constitutional and general: No acute distress, looks biologic age Head and face: No puffiness, atraumatic Eyes: No scleral icterus, extraocular movements normal Neck: Supple, no JVD Musculoskeletal: No acute joint swelling, no bony abnormalities Skin/dermatologic/integument: No rash, no purpura Hematologic and lymphatic: pallor +, no petechia Gastrointestinal/abdomen: Nondistended, soft, nonacute Neurologic: Cranial nerves intact, lower extremity weakness; light touch intact Psychiatry: Awake, alert, pleasant, communicative Cardiovascular: Heart rhythm regular, no rub, no murmur, no gallop Respiratory: Chest movements equal, no use of accessory muscles, no adventitious sounds Extremities: No edema, no cyanosis Results & Data Results & Data ([facility]) Vital Signs (Past 12 Hours) Vital Signs Temp Pulse Pulse Resp BP Pulse Ox 07/29/21 08:00 36.7 C 73 83 19 99/72 L 97 07/29/21 03:31 37.2 C 77 17 115/76 94 07/28/21 23:13 75 07/28/21 22:32 36.8 C 73 24 116/89 94 Laboratory Results Laboratory Results - last 24 hr 07/27/21 07/27/21 07/28/21 15:22 15:24 11:17 WBC RBC Hgb Hct MCV MCH MCHC RDW Std Deviation RDW Coeff of Krystyna Plt Count MPV Immature Gran % (Auto) Neut % (Auto) Lymph % (Auto) Cherry % (Auto) Eos % (Auto) Baso % (Auto) Neut # (Auto) Lymph # (Auto) Cherry # (Auto) Eos # (Auto) Baso # (Auto) Immature Gran # (Auto) Sodium Potassium Chloride Carbon Dioxide Anion Gap BUN Creatinine Est Cr Clr Drug Dosing Est GFR ( Amer) Est GFR (Non-Af Amer) BUN/Creatinine Ratio Glucose POC Glucose 167 H Calcium Magnesium Total Bilirubin AST ALT Alkaline Phosphatase Troponin I 0.07 H* Total Protein Albumin Globulin Albumin/Globulin Ratio Bld Cult Staph aureus PCR Negative Blood Culture MRSA PCR Negative 07/28/21 07/28/21 07/29/21 16:32 20:24 06:50 WBC 3.34 L RBC 3.06 L Hgb 10.6 L Hct 32.4 L MCV 105.9 H MCH 34.6 H MCHC 32.7 RDW Std Deviation 59.3 H RDW Coeff of Krystyna 15.5 H Plt Count 79 L MPV 11.5 H Immature Gran % (Auto) 1.8 Neut % (Auto) 58.1 Lymph % (Auto) 26.9 Cherry % (Auto) 10.5 Eos % (Auto) 1.8 Baso % (Auto) 0.9 Neut # (Auto) 1.94 Lymph # (Auto) 0.90 L Cherry # (Auto) 0.35 Eos # (Auto) 0.06 Baso # (Auto) 0.03 Immature Gran # (Auto) 0.06 H Sodium Potassium Chloride Carbon Dioxide Anion Gap BUN Creatinine Est Cr Clr Drug Dosing Est GFR ( Amer) Est GFR (Non-Af Amer) BUN/Creatinine Ratio Glucose POC Glucose 158 H 149 H Calcium Magnesium Total Bilirubin AST ALT Alkaline Phosphatase Troponin I Total Protein Albumin Globulin Albumin/Globulin Ratio Bld Cult Staph aureus PCR Blood Culture MRSA PCR 07/29/21 07/29/21 06:50 07:08 WBC RBC Hgb Hct MCV MCH MCHC RDW Std Deviation RDW Coeff of Krystyna Plt Count MPV Immature Gran % (Auto) Neut % (Auto) Lymph % (Auto) Cherry % (Auto) Eos % (Auto) Baso % (Auto) Neut # (Auto) Lymph # (Auto) Cherry # (Auto) Eos # (Auto) Baso # (Auto) Immature Gran # (Auto) Sodium 138 Potassium 3.3 L Chloride 111 H Carbon Dioxide 20 L Anion Gap 7 BUN 17 Creatinine 0.62 Est Cr Clr Drug Dosing 122.3 Est GFR ( Amer) 108.6 Est GFR (Non-Af Amer) 93.7 BUN/Creatinine Ratio 27.4 H Glucose 128 H POC Glucose 133 H Calcium 7.7 L Magnesium 1.8 Total Bilirubin 0.4 AST 80 H ALT 42 Alkaline Phosphatase 31 L Troponin I Total Protein 5.7 L Albumin 3.1 L Globulin 2.6 Albumin/Globulin Ratio 1.2 Bld Cult Staph aureus PCR Blood Culture MRSA PCR PG Care Time/CCT Total # of Minutes Spent Total Time Spent with Patient: Total time spent is greater than 50% in coordination of care (as documented) at patient's floor/unit and/or counseling patient: Coding Level of Care Code 01545 Subseq Hosp Care Lvl 2 Diagnoses Weakness R53.1 UTI (urinary tract infection) N39.0 Rhabdomyolysis M62.82 Rhabdomyolysis type: non-traumatic BPH with elevated PSA N40.0; R97.20 AAA (abdominal aortic aneurysm) I71.4 Presence of rupture: without rupture Elevated troponin R77.8 Diabetes E11.9 Hypercholesteremia E78.00 HTN (hypertension) I10 (1) AAA (abdominal aortic aneurysm) Presence of rupture: without rupture Qualified Code(s): I71.4 - Abdominal aortic aneurysm, without rupture (2) Rhabdomyolysis Rhabdomyolysis type: non-traumatic Qualified Code(s): M62.82 - Rhabdomyolysis
[2021-07-29] MEDS: ENOXAPARIN INJ 40 MG/0.4 ML SYR SQ SCH (11:58)
[2021-07-29] MEDS: DOCUSATE CALCIUM 240 MG CAPSULE PO SCH (14:19)
--- NOTE | 2021-07-29 14:22 | XCELERA ---
[id number]
[2021-07-29] MEDS ORDERED: MAGNESIUM CITRATE 296 ML/BTL PO ONE (16:15)
[2021-07-29] MEDS: cefTRIAXone SODIUM 2,000 MG in DEXTROSE 5% 50 ML IV SCH (19:39)
[2021-07-30] MEDS: SODIUM CHLORIDE 0.9% 1000ML 1,000 ML IV SCH (01:40)
[2021-07-30] MEDS: MELATONIN 3 MG TAB PO PRN ×2 (01:42→22:26)
[2021-07-30 06:09] LABS: Hematocrit (blood only) 29.6 % (42-52); Hemoglobin 9.8 g/dL (14.0-18.0); Mean Corpuscular Hemoglobin 34.3 pg (25-34); Mean Corpuscular Hgb Conc 33.1 g/dL (32-36); Mean Corpuscular Volume 103.5 fL (80-100); RDW Coefficient of Variation 14.8 % (11.5-14.5); RDW Standard Deviation 56.7 fL (36.4-46.3); Red Blood Count 2.86 M/uL (4.7-6.1); White Blood Count 2.64 K/uL (4.8-10.8)
[2021-07-30 06:43] LABS: Albumin Globulin Ratio 1.3 (0.9-2); BUN Creatinine Ratio 26.9 (10-20); Bilirubin,Total 0.4 mg/dl (0.2-1.0); Calcium 8.4 mg/dl (8.5-10.1); Creatinine Clr Calc Pharmacy 145.3 ml/min; Est GFR (African American) 116.7 ml/min; Est GFR (Non-African American) 100.7 ml/min; Globulin 2.3 gm/dl (2.5-4.0); Magnesium 1.9 mg/dl (1.7-2.4); Potassium 3.5 mmol/L (3.5-5.1); Total Protein 5.3 gm/dl (6.0-8.3)
[2021-07-30 06:45] LABS: Mean Platelet Volume 11.3 fL (7.4-10.4); Platelet Count 90 K/uL (130-400)
[2021-07-30 06:47] LABS: Basophils # (auto) 0.03 K/uL (0-0.2); Basophils % (auto) 1.1 %; Eosinophils # (auto) 0.07 K/uL (0-0.5); Eosinophils % (auto) 2.7 %; Immature Granulocytes # (auto) 0.04 K/uL (0.00-0.02); Immature Granulocytes % (auto) 1.5 %; Lymphocytes # (auto) 0.63 K/uL (1.2-3.4); Lymphocytes % (auto) 23.9 %; Monocytes # (auto) 0.33 K/uL (0.11-0.59); Monocytes % (auto) 12.5 %; Neutrophils # (auto) 1.54 K/uL (1.4-6.5); Neutrophils % (auto) 58.3 %
[2021-07-30] MEDS: INSULIN ASPART PER UNIT SC SCH ×4 (08:33→20:40)
[2021-07-30] MEDS: ASPIRIN 81 MG ECTAB PO SCH (08:33)
[2021-07-30] MEDS: SIMVASTATIN 40 MG TAB PO SCH (08:34)
[2021-07-30] MEDS: TAMSULOSIN HCL 0.4 MG CAP PO SCH ×2 (08:34→20:38)
[2021-07-30] MEDS: DOCUSATE CALCIUM 240 MG CAPSULE PO SCH (08:34)
[2021-07-30] MEDS: MULTIVITAMIN TAB PO SCH (08:38)
[2021-07-30] MEDS: INSULIN GLARGINE SOLOSTAR 100 UNITS/ML 3 ML PEN SC SCH ×2 (08:39→20:39)
[2021-07-30] MEDS: HYDROCODONE/ACETAMOPHEN 5/325MG TAB PO PRN ×3 (09:32→22:25)
--- NOTE | 2021-07-30 10:17 | Hospitalist Progress Note ---
Date of Service July 30, 2021 Assessment & Plan (1) Weakness: Plan: Secondary to UTI; clearly improved therefore at present does not appear neurologytreat UTIKlebsiella, Rocephin sensitive; continue (2) UTI (urinary tract infection): Plan: See above (3) Rhabdomyolysis: Plan: Improved; stop IV fluids (4) BPH with elevated PSA: Plan: continue Flomax (5) AAA (abdominal aortic aneurysm): Plan: -Vascular surgery following; addendum reports acute dissection, vascular surgery aware; no abdominal pain at present (6) Elevated troponin: Plan: Do not think significant; follow clinically (7) Diabetes: Plan: Current regimen appears reasonable; continue (8) Hypercholesteremia: Plan: Continue statin (9) HTN (hypertension): Plan: BP stable; AMANDA inhibitor on on hold; follow clinically and reassessanticipate resumption soon (10) Pancytopenia: Plan: Platelets slightly better, WBC slightly lower, hemoglobin lowfollow for now; if significant worsening consider hematology input Plan: SCDs CODE STATUS: DNR/DNI per patient CM consulted, patient manages no meds at home and does not use a pillbox and is somewhat poor historian of medications, and concern that he may not be taking pills accurately. Admission and Anticipated Discharge Date Admission Date: July 27, 2021 Subjective Follow-up of presentation of chills followed by progressive ambulatory dysfunction; doing better; ambulated with assistance and out of chair Physical Exam Physical Exam: Constitutional and general: No acute distress, looks biologic age Head and face: No puffiness, atraumatic Eyes: No scleral icterus, extraocular movements normal Neck: Supple, no JVD Musculoskeletal: No acute joint swelling, no bony abnormalities Skin/dermatologic/integument: No rash, no purpura Hematologic and lymphatic: pallor +, no petechia Gastrointestinal/abdomen: distended, soft, nonacute Neurologic: Cranial nerves intact, lower extremity weakness; light touch intact Psychiatry: Awake, alert, pleasant, communicative Cardiovascular: Heart rhythm regular, no rub, no murmur, no gallop Respiratory: Chest movements equal, no use of accessory muscles, no adventitious sounds Extremities: No edema, no cyanosis Results & Data Results & Data ([facility]) Vital Signs (Past 12 Hours) Vital Signs Temp Pulse Pulse Resp BP Pulse Ox 07/30/21 08:05 37.1 C 80 20 130/68 93 07/30/21 03:05 36.9 C 67 20 127/85 94 07/29/21 23:24 36.6 C 73 20 140/98 93 07/29/21 22:20 74 Laboratory Results Laboratory Results - last 24 hr 07/29/21 07/29/21 07/29/21 11:25 16:35 20:29 WBC RBC Hgb Hct MCV MCH MCHC RDW Std Deviation RDW Coeff of Krystyna Plt Count MPV Immature Gran % (Auto) Neut % (Auto) Lymph % (Auto) Storey % (Auto) Eos % (Auto) Baso % (Auto) Neut # (Auto) Lymph # (Auto) Storey # (Auto) Eos # (Auto) Baso # (Auto) Immature Gran # (Auto) Sodium Potassium Chloride Carbon Dioxide Anion Gap BUN Creatinine Est Cr Clr Drug Dosing Est GFR ( Amer) Est GFR (Non-Af Amer) BUN/Creatinine Ratio Glucose POC Glucose 155 H 156 H 170 H Calcium Magnesium Total Bilirubin AST ALT Alkaline Phosphatase Total Creatine Kinase Total Protein Albumin Globulin Albumin/Globulin Ratio 07/30/21 07/30/21 07/30/21 05:38 05:38 07:12 WBC 2.64 L RBC 2.86 L Hgb 9.8 L Hct 29.6 L MCV 103.5 H MCH 34.3 H MCHC 33.1 RDW Std Deviation 56.7 H RDW Coeff of Krystyna 14.8 H Plt Count 90 L MPV 11.3 H Immature Gran % (Auto) 1.5 Neut % (Auto) 58.3 Lymph % (Auto) 23.9 Storey % (Auto) 12.5 Eos % (Auto) 2.7 Baso % (Auto) 1.1 Neut # (Auto) 1.54 Lymph # (Auto) 0.63 L Storey # (Auto) 0.33 Eos # (Auto) 0.07 Baso # (Auto) 0.03 Immature Gran # (Auto) 0.04 H Sodium 139 Potassium 3.5 Chloride 112 H Carbon Dioxide 21 Anion Gap 6 BUN 14 Creatinine 0.52 L Est Cr Clr Drug Dosing 145.3 Est GFR ( Amer) 116.7 Est GFR (Non-Af Amer) 100.7 BUN/Creatinine Ratio 26.9 H Glucose 123 H POC Glucose 133 H Calcium 8.4 L Magnesium 1.9 Total Bilirubin 0.4 AST 67 H ALT 39 Alkaline Phosphatase 34 Total Creatine Kinase 1411 H Total Protein 5.3 L Albumin 3.0 L Globulin 2.3 L Albumin/Globulin Ratio 1.3 PG Care Time/CCT Total # of Minutes Spent Total Time Spent with Patient: Total time spent is greater than 50% in coordination of care (as documented) at patient's floor/unit and/or counseling patient: Coding Level of Care Code 72222 Subseq Hosp Care Lvl 2 Diagnoses Weakness R53.1 UTI (urinary tract infection) N39.0 Rhabdomyolysis M62.82 Rhabdomyolysis type: non-traumatic BPH with elevated PSA N40.0; R97.20 AAA (abdominal aortic aneurysm) I71.4 Presence of rupture: without rupture Elevated troponin R77.8 Diabetes E11.9 Hypercholesteremia E78.00 HTN (hypertension) I10 Pancytopenia D61.818 (1) Rhabdomyolysis Rhabdomyolysis type: non-traumatic Qualified Code(s): M62.82 - Rhabdomyolysis (2) AAA (abdominal aortic aneurysm) Presence of rupture: without rupture Qualified Code(s): I71.4 - Abdominal aortic aneurysm, without rupture
[2021-07-30] MEDS: ENOXAPARIN INJ 40 MG/0.4 ML SYR SQ SCH (12:54)
[2021-07-30] MEDS: cefTRIAXone SODIUM 2,000 MG in DEXTROSE 5% 50 ML IV SCH (20:37)
[2021-07-31] MEDS: HYDROCODONE/ACETAMOPHEN 5/325MG TAB PO PRN ×3 (03:04→23:06)
[2021-07-31 07:00] LABS: Basophils # (auto) 0.04 K/uL (0-0.2); Basophils % (auto) 1.3 %; Eosinophils # (auto) 0.12 K/uL (0-0.5); Hemoglobin 10.2 g/dL (14.0-18.0); Immature Granulocytes # (auto) 0.08 K/uL (0.00-0.02); Immature Granulocytes % (auto) 2.7 %; Lymphocytes # (auto) 0.82 K/uL (1.2-3.4); Lymphocytes % (auto) 27.4 %; Mean Corpuscular Hgb Conc 32.9 g/dL (32-36); Mean Corpuscular Volume 103.3 fL (80-100); Monocytes # (auto) 0.34 K/uL (0.11-0.59); Monocytes % (auto) 11.4 %; Neutrophils # (auto) 1.59 K/uL (1.4-6.5); Neutrophils % (auto) 53.2 %; Platelet Count 109 K/uL (130-400); RDW Coefficient of Variation 14.7 % (11.5-14.5); RDW Standard Deviation 55.3 fL (36.4-46.3); White Blood Count 2.99 K/uL (4.8-10.8)
[2021-07-31 07:28] LABS: Albumin Globulin Ratio 1.3 (0.9-2); Albumin Level 3.1 gm/dl (3.4-5.0); BUN Creatinine Ratio 22.6 (10-20); Bilirubin,Total 0.4 mg/dl (0.2-1.0); Calcium 7.9 mg/dl (8.5-10.1); Creatinine Clr Calc Pharmacy 142.4 ml/min; Est GFR (African American) 115.8 ml/min; Est GFR (Non-African American) 99.9 ml/min; Globulin 2.3 gm/dl (2.5-4.0); Potassium 3.3 mmol/L (3.5-5.1); Total Protein 5.4 gm/dl (6.0-8.3)
[2021-07-31] MEDS: TAMSULOSIN HCL 0.4 MG CAP PO SCH ×2 (07:54→20:17)
[2021-07-31] MEDS: ASPIRIN 81 MG ECTAB PO SCH (07:54)
[2021-07-31] MEDS: DOCUSATE CALCIUM 240 MG CAPSULE PO SCH (07:55)
[2021-07-31] MEDS: MULTIVITAMIN TAB PO SCH (07:55)
[2021-07-31] MEDS: SIMVASTATIN 40 MG TAB PO SCH (07:55)
[2021-07-31] MEDS: INSULIN GLARGINE SOLOSTAR 100 UNITS/ML 3 ML PEN SC SCH ×2 (08:28→20:20)
[2021-07-31] MEDS: INSULIN ASPART PER UNIT SC SCH ×4 (08:28→20:08)
[2021-07-31] MEDS: ENOXAPARIN INJ 40 MG/0.4 ML SYR SQ SCH (10:01)
[2021-07-31] MEDS ORDERED: POTASSIUM CHLORIDE 20 MEQ/15 ML UDC PO STA (10:25)
--- NOTE | 2021-07-31 10:44 | Hospitalist Progress Note ---
Date of Service July 31, 2021 Assessment & Plan (1) Weakness: Plan: Secondary to UTI; improved therefore at present does not appear neurologytreat UTIKlebsiella, Rocephin sensitive; continue for now, switch to p.o. soon (2) UTI (urinary tract infection): Plan: See above (3) Rhabdomyolysis: Plan: Improved; stopped IV fluids; I held statin; repeat CK 1 more time in a.m. (4) BPH with elevated PSA: Plan: continue Flomax (5) AAA (abdominal aortic aneurysm): Plan: -Vascular surgery following; addendum reports acute dissection, vascular surgery aware; they plan outpatient follow-up in 2 weeks; no abdominal pain at present (6) Elevated troponin: Plan: Do not think significant; follow clinically (7) Diabetes: Plan: Current regimen appears reasonable; continue (8) Hypercholesteremia: Plan: Continue statin (9) HTN (hypertension): Plan: BP in general stable; AMANDA inhibitor on on hold; follow clinically and reassessanticipate resumption soon but still hold off (10) Pancytopenia: Plan: All cell lines improved, follow (11) Constipation: Plan: With some impaction without bowel dilatation; repeat x-ray abdomen in a.m. Plan: Replace potassium SCDs CODE STATUS: DNR/DNI per patient CM consulted, patient manages no meds at home and does not use a pillbox and is somewhat poor historian of medications, and concern that he may not be taking pills accurately [facility] but they are awaiting feedback from Department of Aging due to home situationwill not occur till Monday Admission and Anticipated Discharge Date Admission Date: July 27, 2021 Subjective Follow-up of presentation of chills followed by progressive ambulatory dysfunction; overall doing better but he thinks he took a step backwards yes terday Physical Exam Physical Exam: Constitutional and general: No acute distress, looks biologic age Head and face: No puffiness, atraumatic Eyes: No scleral icterus, extraocular movements normal Neck: Supple, no JVD Musculoskeletal: No acute joint swelling, no bony abnormalities Skin/dermatologic/integument: No rash, no purpura Hematologic and lymphatic: pallor +, no petechia Gastrointestinal/abdomen: distended, soft, nonacute; wall hernia Neurologic: Cranial nerves intact, lower extremity weakness; light touch intact Psychiatry: Awake, alert, pleasant, communicative Cardiovascular: Heart rhythm regular, no rub, no murmur, no gallop Respiratory: Chest movements equal, no use of accessory muscles, no adventitious sounds Extremities: No edema, no cyanosis Results & Data Results & Data ([facility]) Vital Signs (Past 12 Hours) Vital Signs Temp Pulse Resp BP Pulse Ox 07/31/21 07:15 37.2 C 64 19 129/80 95 07/31/21 03:26 36.8 C 71 18 143/85 H 95 07/30/21 23:45 36.7 C 67 23 130/71 92 Laboratory Results Laboratory Results - last 24 hr 07/30/21 07/30/21 07/31/21 15:51 20:10 06:29 WBC RBC Hgb Hct MCV MCH MCHC RDW Std Deviation RDW Coeff of Krystyna Plt Count MPV Immature Gran % (Auto) Neut % (Auto) Lymph % (Auto) Mccreary % (Auto) Eos % (Auto) Baso % (Auto) Neut # (Auto) Lymph # (Auto) Mccreary # (Auto) Eos # (Auto) Baso # (Auto) Immature Gran # (Auto) Sodium 138 Potassium 3.3 L Chloride 109 H Carbon Dioxide 22 Anion Gap 7 BUN 12 Creatinine 0.53 L Est Cr Clr Drug Dosing 142.4 Est GFR ( Amer) 115.8 Est GFR (Non-Af Amer) 99.9 BUN/Creatinine Ratio 22.6 H Glucose 122 H POC Glucose 144 H 161 H Calcium 7.9 L Magnesium 2.0 Total Bilirubin 0.4 AST 66 H ALT 48 Alkaline Phosphatase 43 Total Protein 5.4 L Albumin 3.1 L Globulin 2.3 L Albumin/Globulin Ratio 1.3 07/31/21 07/31/21 07/31/21 06:29 07:16 11:11 WBC 2.99 L RBC 3.00 L Hgb 10.2 L Hct 31.0 L MCV 103.3 H MCH 34.0 MCHC 32.9 RDW Std Deviation 55.3 H RDW Coeff of Krystyna 14.7 H Plt Count 109 L MPV 11.0 H Immature Gran % (Auto) 2.7 Neut % (Auto) 53.2 Lymph % (Auto) 27.4 Mccreary % (Auto) 11.4 Eos % (Auto) 4.0 Baso % (Auto) 1.3 Neut # (Auto) 1.59 Lymph # (Auto) 0.82 L Mccreary # (Auto) 0.34 Eos # (Auto) 0.12 Baso # (Auto) 0.04 Immature Gran # (Auto) 0.08 H Sodium Potassium Chloride Carbon Dioxide Anion Gap BUN Creatinine Est Cr Clr Drug Dosing Est GFR ( Amer) Est GFR (Non-Af Amer) BUN/Creatinine Ratio Glucose POC Glucose 124 H 132 H Calcium Magnesium Total Bilirubin AST ALT Alkaline Phosphatase Total Protein Albumin Globulin Albumin/Globulin Ratio PG Care Time/CCT Total # of Minutes Spent Total Time Spent with Patient: Total time spent is greater than 50% in coordination of care (as documented) at patient's floor/unit and/or counseling patient: Coding Level of Care Code 76929 Subseq Hosp Care Lvl 2 Diagnoses Weakness R53.1 UTI (urinary tract infection) N39.0 Rhabdomyolysis M62.82 Rhabdomyolysis type: non-traumatic BPH with elevated PSA N40.0; R97.20 AAA (abdominal aortic aneurysm) I71.4 Presence of rupture: without rupture Elevated troponin R77.8 Diabetes E11.9 Hypercholesteremia E78.00 HTN (hypertension) I10 Pancytopenia D61.818 Constipation K59.00 (1) AAA (abdominal aortic aneurysm) Presence of rupture: without rupture Qualified Code(s): I71.4 - Abdominal aortic aneurysm, without rupture (2) Rhabdomyolysis Rhabdomyolysis type: non-traumatic Qualified Code(s): M62.82 - Rhabdomyolysis
[2021-07-31] MEDS ORDERED: bisacodyL 10 MG SUPP PR PRN (15:00)
[2021-07-31] MEDS: cefTRIAXone SODIUM 2,000 MG in DEXTROSE 5% 50 ML IV SCH (20:07)
[2021-08-01 06:40] LABS: Hematocrit (blood only) 31.6 % (42-52); Hemoglobin 10.4 g/dL (14.0-18.0); Mean Corpuscular Hemoglobin 33.9 pg (25-34); Mean Corpuscular Hgb Conc 32.9 g/dL (32-36); Mean Corpuscular Volume 102.9 fL (80-100); Mean Platelet Volume 10.6 fL (7.4-10.4); Platelet Count 134 K/uL (130-400); RDW Coefficient of Variation 14.7 % (11.5-14.5); RDW Standard Deviation 54.6 fL (36.4-46.3); Red Blood Count 3.07 M/uL (4.7-6.1); White Blood Count 3.28 K/uL (4.8-10.8)
[2021-08-01 07:09] LABS: Basophils # (auto) 0.05 K/uL (0-0.2); Basophils % (auto) 1.5 %; Eosinophils # (auto) 0.14 K/uL (0-0.5); Eosinophils % (auto) 4.3 %; Immature Granulocytes # (auto) 0.25 K/uL (0.00-0.02); Immature Granulocytes % (auto) 7.6 %; Lymphocytes # (auto) 0.92 K/uL (1.2-3.4); Monocytes # (auto) 0.36 K/uL (0.11-0.59); Neutrophils # (auto) 1.56 K/uL (1.4-6.5); Neutrophils % (auto) 47.6 %
[2021-08-01 07:10] LABS: Albumin Globulin Ratio 1.4 (0.9-2); Albumin Level 3.3 gm/dl (3.4-5.0); BUN Creatinine Ratio 22.6 (10-20); Bilirubin,Total 0.4 mg/dl (0.2-1.0); Calcium 8.2 mg/dl (8.5-10.1); Creatinine Clr Calc Pharmacy 142.4 ml/min; Est GFR (African American) 115.8 ml/min; Est GFR (Non-African American) 99.9 ml/min; Globulin 2.4 gm/dl (2.5-4.0); Potassium 3.3 mmol/L (3.5-5.1); Total Protein 5.7 gm/dl (6.0-8.3)
[2021-08-01] MEDS: INSULIN ASPART PER UNIT SC SCH ×4 (08:08→20:32)
[2021-08-01] MEDS: INSULIN GLARGINE SOLOSTAR 100 UNITS/ML 3 ML PEN SC SCH ×2 (08:09→20:29)
[2021-08-01] MEDS: TAMSULOSIN HCL 0.4 MG CAP PO SCH ×2 (08:10→20:26)
[2021-08-01] MEDS: ASPIRIN 81 MG ECTAB PO SCH (08:10)
[2021-08-01] MEDS: MULTIVITAMIN TAB PO SCH (08:10)
[2021-08-01] MEDS: DOCUSATE CALCIUM 240 MG CAPSULE PO SCH (08:10)
[2021-08-01] MEDS: ENOXAPARIN INJ 40 MG/0.4 ML SYR SQ SCH (08:11)
[2021-08-01] MEDS: HYDROCODONE/ACETAMOPHEN 5/325MG TAB PO PRN ×2 (08:14→21:32)
[2021-08-01] MEDS ORDERED: POTASSIUM CHLORIDE 20 MEQ/15 ML UDC PO STA (09:16)
[2021-08-01] MEDS ORDERED: MAGNESIUM HYDROXIDE SUSP 30 ML UDC PO PRN (09:42)
--- NOTE | 2021-08-01 09:54 | Hospitalist Progress Note ---
Date of Service August 01, 2021 Assessment & Plan (1) Weakness: Plan: Secondary to UTI; improved does not appear neurologictreat UTIKlebsiella, switch to p.o. KeflexI chose 7 days duration, can adjust Coag negative staph in 1 bottle appears contaminant (2) UTI (urinary tract infection): Plan: See above (3) Rhabdomyolysis: Plan: Improved; stopped IV fluids; CK continues downtrend; statin temporarily held (4) BPH with elevated PSA: Plan: continue Flomax (5) AAA (abdominal aortic aneurysm): Plan: -Vascular surgery following; addendum reports acute dissection, vascular surgery aware; they plan outpatient follow-up in 2 weeks; no abdominal pain at present (6) Elevated troponin: Plan: Do not think significant; follow clinically (7) Diabetes: Plan: Current regimen appears reasonable; continue (8) Hypercholesteremia: Plan: Statin on hold (9) HTN (hypertension): Plan: BP drifting up; resume AMANDA inhibitor (was held) but 20 mg once a day (home dose 20 mg twice a day, lisinopril) (10) Pancytopenia: Plan: All cell lines further improved, follow (11) Constipation: Plan: With some impaction without bowel dilatation on original imaging repeat x-ray abdomen pending; Responded well to mag citrate 2 days ago; Milk of magnesia added Follow Plan: Replace potassium SCDs CODE STATUS: DNR/DNI per patient CM consulted, patient manages no meds at home and does not use a pillbox and is somewhat poor historian of medications, and concern that he may not be taking pills accurately [facility] but they are awaiting feedback from Department of Aging due to home situationwill not occur till Monday Admission and Anticipated Discharge Date Admission Date: July 27, 2021 Subjective Follow-up of presentation of chills followed by progressive ambulatory dysfunction; feels better again today; poor bowel movement today Physical Exam Physical Exam: Constitutional and general: No acute distress, looks biologic age Head and face: No puffiness, atraumatic Eyes: No scleral icterus, extraocular movements normal Neck: Supple, no JVD Musculoskeletal: No acute joint swelling, no bony abnormalities Skin/dermatologic/integument: No rash, no purpura Hematologic and lymphatic: pallor +, no petechia Gastrointestinal/abdomen: distended, soft, nonacute; wall hernia Neurologic: Cranial nerves intact, lower extremity weakness; light touch intact Psychiatry: Awake, alert, pleasant, communicative Cardiovascular: Heart rhythm regular, no rub, no murmur, no gallop Respiratory: Chest movements equal, no use of accessory muscles, no adventitious sounds Extremities: No edema, no cyanosis Dressed skin tear left elbow Results & Data Results & Data ([facility]) Vital Signs (Past 12 Hours) Vital Signs Temp Pulse Resp BP Pulse Ox 08/01/21 07:22 37.0 C 70 18 146/90 H 94 07/31/21 21:25 37.3 C 84 18 160/78 H 93 Laboratory Results Laboratory Results - last 24 hr 07/31/21 07/31/21 07/31/21 11:11 15:58 20:06 WBC RBC Hgb Hct MCV MCH MCHC RDW Std Deviation RDW Coeff of Krystyna Plt Count MPV Immature Gran % (Auto) Neut % (Auto) Lymph % (Auto) Ralls % (Auto) Eos % (Auto) Baso % (Auto) Neut # (Auto) Lymph # (Auto) Ralls # (Auto) Eos # (Auto) Baso # (Auto) Immature Gran # (Auto) Sodium Potassium Chloride Carbon Dioxide Anion Gap BUN Creatinine Est Cr Clr Drug Dosing Est GFR ( Amer) Est GFR (Non-Af Amer) BUN/Creatinine Ratio Glucose POC Glucose 132 H 171 H 129 H Calcium Magnesium Total Bilirubin AST ALT Alkaline Phosphatase Total Creatine Kinase Total Protein Albumin Globulin Albumin/Globulin Ratio 08/01/21 08/01/21 08/01/21 06:05 06:05 08:01 WBC 3.28 L RBC 3.07 L Hgb 10.4 L Hct 31.6 L MCV 102.9 H MCH 33.9 MCHC 32.9 RDW Std Deviation 54.6 H RDW Coeff of Krystyna 14.7 H Plt Count 134 MPV 10.6 H Immature Gran % (Auto) 7.6 Neut % (Auto) 47.6 Lymph % (Auto) 28.0 Ralls % (Auto) 11.0 Eos % (Auto) 4.3 Baso % (Auto) 1.5 Neut # (Auto) 1.56 Lymph # (Auto) 0.92 L Ralls # (Auto) 0.36 Eos # (Auto) 0.14 Baso # (Auto) 0.05 Immature Gran # (Auto) 0.25 H Sodium 138 Potassium 3.3 L Chloride 107 Carbon Dioxide 24 Anion Gap 7 BUN 12 Creatinine 0.53 L Est Cr Clr Drug Dosing 142.4 Est GFR ( Amer) 115.8 Est GFR (Non-Af Amer) 99.9 BUN/Creatinine Ratio 22.6 H Glucose 112 H POC Glucose 104 H Calcium 8.2 L Magnesium 2.0 Total Bilirubin 0.4 AST 62 H ALT 56 H Alkaline Phosphatase 54 Total Creatine Kinase 715 H Total Protein 5.7 L Albumin 3.3 L Globulin 2.4 L Albumin/Globulin Ratio 1.4 PG Care Time/CCT Total # of Minutes Spent Total Time Spent with Patient: Total time spent is greater than 50% in coordination of care (as documented) at patient's floor/unit and/or counseling patient: Coding Level of Care Code 43673 Subseq Hosp Care Lvl 2 Diagnoses Weakness R53.1 UTI (urinary tract infection) N39.0 Rhabdomyolysis M62.82 Rhabdomyolysis type: non-traumatic BPH with elevated PSA N40.0; R97.20 AAA (abdominal aortic aneurysm) I71.4 Presence of rupture: without rupture Elevated troponin R77.8 Diabetes E11.9 Hypercholesteremia E78.00 HTN (hypertension) I10 Pancytopenia D61.818 Constipation K59.00 (1) Rhabdomyolysis Rhabdomyolysis type: non-traumatic Qualified Code(s): M62.82 - Rhabdomyolysis (2) AAA (abdominal aortic aneurysm) Presence of rupture: without rupture Qualified Code(s): I71.4 - Abdominal aortic aneurysm, without rupture
[2021-08-01] MEDS: cephALEXin 500 MG CAP PO SCH ×2 (10:11→20:26)
[2021-08-01] MEDS: lisinopril 20 MG TAB PO SCH (10:12)
--- NOTE | 2021-08-01 10:51 | XRay Report ---
KUB HISTORY: Acute generalized abdominal pain with constipation Constipation, fecal impaction COMPARISON: CT abdomen and pelvis 07/27/2021 FINDINGS: Unchanged right hemidiaphragmatic elevation. There is moderate fecal retention of the right hemicolon. Vascular calcifications. No renal calculi. No ureteral calculi. No pneumoperitoneum or p neumatosis. Degenerative changes of the spine, pelvis and hips. No fracture. IMPRESSION: 1. Nonobstructive bowel gas pattern. 2. Moderate fecal retention of the right hemicolon. ACT 112: Negative or not required by law. The above report was generated using voice recognition software. It may contain grammatical, syntax o r spelling errors. Electronically signed by: Angel Little M.D. 08/01/2021 10:50 AM
[2021-08-02] MEDS: HYDROCODONE/ACETAMOPHEN 5/325MG TAB PO PRN (02:58)
[2021-08-02 06:06] LABS: Hematocrit (blood only) 31.9 % (42-52); Hemoglobin 10.4 g/dL (14.0-18.0); Mean Corpuscular Hgb Conc 32.6 g/dL (32-36); Mean Corpuscular Volume 104.2 fL (80-100); Mean Platelet Volume 10.8 fL (7.4-10.4); Platelet Count 153 K/uL (130-400); RDW Coefficient of Variation 14.8 % (11.5-14.5); RDW Standard Deviation 56.1 fL (36.4-46.3); Red Blood Count 3.06 M/uL (4.7-6.1); White Blood Count 4.62 K/uL (4.8-10.8)
[2021-08-02 06:35] LABS: ALC (manual) 0.56 K/uL (1.2-3.4); ANC (manual) 3.09 K/uL (1.4-6.5); Albumin Globulin Ratio 1.3 (0.9-2); Albumin Level 3.4 gm/dl (3.4-5.0); BUN Creatinine Ratio 28.6 (10-20); Basophils # (manual) 0.08 K/uL (0-0.2); Basophils % (manual) 1.7 %; Bilirubin,Total 0.5 mg/dl (0.2-1.0); Calcium 9.3 mg/dl (8.5-10.1); Eosinophils # (manual) 0.16 K/uL (0-0.5); Eosinophils % (manual) 3.5 %; Est GFR (African American) 119.6 ml/min; Est GFR (Non-African American) 103.2 ml/min; Globulin 2.6 gm/dl (2.5-4.0); Lymphocytes # (manual) 0.56 K/uL (1.2-3.4); Lymphocytes % (manual) 12.2 %; Magnesium 1.9 mg/dl (1.7-2.4); Metamyelocytes # (manual) 0.04 K/uL (0-0); Metamyelocytes % (manual) 0.9 %; Monocytes % (manual) 8.7 %; Myelocytes # (manual) 0.28 K/uL (0-0); Myelocytes % (manual) 6.1 %; Neutrophils # (manual) 3.09 K/uL (1.4-6.5); Neutrophils % (manual) 66.9 %; Potassium 3.7 mmol/L (3.5-5.1); RBC Morphology Unremarkable
[2021-08-02] MEDS: cephALEXin 500 MG CAP PO SCH (08:00)
[2021-08-02] MEDS: MULTIVITAMIN TAB PO SCH (08:00)
[2021-08-02] MEDS: TAMSULOSIN HCL 0.4 MG CAP PO SCH (08:00)
[2021-08-02] MEDS: DOCUSATE CALCIUM 240 MG CAPSULE PO SCH (08:00)
[2021-08-02] MEDS: lisinopril 20 MG TAB PO SCH (08:00)
[2021-08-02] MEDS: ASPIRIN 81 MG ECTAB PO SCH (08:00)
[2021-08-02] MEDS: INSULIN GLARGINE SOLOSTAR 100 UNITS/ML 3 ML PEN SC SCH (08:13)
[2021-08-02] MEDS: INSULIN ASPART PER UNIT SC SCH ×2 (08:14→12:10)
[2021-08-02 08:23] VITALS: TEMP 98.4; O2SAT 95
[2021-08-02] MEDS: ENOXAPARIN INJ 40 MG/0.4 ML SYR SQ SCH (10:44)
--- NOTE | 2021-08-02 12:38 | Discharge Summary ---
Date of Service August 02, 2021 Admission HPI Per Admitting Provider Gato Cazares is an 81-year-old male with history of abdominal aortic aneurysm, BPH, prostate cancer with metastasis, no history of cardiac disease who presents after being down for 1 day on the floor with 3 additional days of weakness preceded by chills and sweats. He is found to have a infrarenal abdominal aortic aneurysm of 5.4 cm with small area of contained dissection, was discussed with vascular surgery by ER prior to admission as noted and thought to be incidental. Admit with found down, weakness, unclear downtime. Rhabdo and UTI. Poor historian. Weak few days, told ER down 3 nurse in bed 2 then down for 1. EMS found home in disarray covered in stool/urine. 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 Recent hx unclear as poor historian. Trop 0.07. Lives alone. Reports he has felt weak. "I woke up so damn cold and shaking several, 3 days ago." Followed by progressive weakness. Shaking when trying to stand. Was shaking 'not like I was cold, just shaking all over'. No cough, no shortness of breath. no nausea, vomiting, or diarrhea No fevers, chills, or sweats today but feels he started of with some chills and sweats No change in sensation in the hands or feet No burning with urination at home. PCP: [facility] for primary care. Pt does not know medications by heart. Keeps medicatiosn in a box Takes lisinopril. Reports sometimes he takes on of each in the morning, sometimes one of each at night. Doesn't use a pill box. Reports Dr. Grant at the OR switched his diabetes medicine to help with excessive urination. Has been been a lot more in the last year, no recent change. Reports he still takes Lupron shot every 6 months. Lupron prescribed by Dr. Mustafa per pt Medical History: Reviewed Medications: Reviewed, patient is not a good historian and cannot give all of his medications Surgical History: Reviewed Allergies: Reviewed Social History: Denies tobacco, alcohol, recreational drug use Code Status: DNR/DNI Principal Diagnosis Rhabdomyolysis, UTI, AAA, fecal impaction Discharge Exam Constitutional WD/WN, vitals as above Eyes + anicteric sclerae ENMT external ear and nose normal, oropharynx normal Neck trachea midline, no thyromegaly Respiratory normal respiratory effort, lungs clear to auscultation Cardiovascular RRR, no murmur, no edema Chest (Breasts) Chest: normal inspection of chest Gastrointestinal (Abdomen) normal bowel sounds, soft, nontender, no hepatosplenomegaly Musculoskeletal Extremities: extremities normal to inspection; no cyanosis and no clubbing Skin no rashes, warm and dry Neurologic moves all extremities and awake; no focal motor deficits Psychiatric A+Ox3, euthymic affect Lymphatic no lymphedema Discharge Data Allergies Allergy/AdvReac Type Severity Reaction Status Date / Time meperidine Allergy Unknown Unknown Verified 07/27/21 18:31 morphine Allergy Unknown Unknown Verified 07/27/21 18:31 Consultations 07/27/21 18:17 ED Decision to Admit Stat 07/27/21 21:59 Consult Vascular Surgery Routine Ordered Studies 07/27/21 15:00 CT abd pelvis IV con only Stat CT cervical spine wo con Stat CT chest diagnostic w con Stat CT head/brain wo con Stat ECHO Hospital Course (1) Weakness: Secondary to UTI; clearly improved therefore at present does not appear neurologic treat UTIKlebsiella, Rocephin sensitive-teated with 5 days of Rocephin and then converted to po keflex for 5 days for total 0 days therapy given fevers prior to admission BCxs 1/2 with coag neg Staph, likely contaminant and repeat BCxs no growth Improving, needs rehab (2) UTI (urinary tract infection): See above (3) Rhabdomyolysis: 2/2 being down on ground for 24 hours Improved;received IV fluids held statin but can now restart no renal failure (4) BPH with elevated PSA: continue Flomax dc Oxybutynin for incontinence as can lead to falls and UTI (5) AAA (abdominal aortic aneurysm): -Vascular surgery following; CT reports acute dissection and is enlarged from previous now at 5.4cm, vascular surgery aware; no abdominal pain at present plan for EVAR, f/u in 2 weeks with Vascular for preop (6) Elevated troponin: Do not think significant; myocardial demand ischemia in setting of rhabdo ECHO without WMAs, with preserved EF (7) Diabetes: on insulin here but can restart home po meds on discharge (8) Hypercholesteremia: Continue statin on discharge now that rhabdo resolving (9) HTN (hypertension): AMANDA inhibitor held initially and resumed at half dose of 20mg once daily follow BPs-stable (10) Pancytopenia: Chronic m=for years had MDS panel, bone marrow aspirate, and flow cytometry in past that were negative counts are improved and some was due to acute infection follow CBC as outpt and f/u with Hematology (11) Constipation: now resolved with laxatives, softeners continue bowel regimen SCDs CODE STATUS: DNR/DNI per patient CM consulted, patient manages no meds at home and does not use a pillbox and is somewhat poor historian of medications, and concern that he may not be taking pills accurately. Dispo-dc to rehab today Total Time Total Time Spent Total Time Spent (In Minutes): 35 min Discharge Plan Discharge Items Patient Disposition: Transfer Inpatient Rehab Fac Reason For Visit: RHABDO, WEAKNESS, UTI Discharge Diagnosis: Rhabdomyolysis, UTI, Fall, AAA Condition on Discharge: Good Activity: As commented below Lifting: Gradually increase as tolerated Bathing: No limitations Exercise/Sports: Gradually increase as tolerated Non-emergency contact: Primary Care Provider and Surgeon Call non-emergency contact if: you have any medication questions and your symptoms worsen Follow-up/Referrals: Benny Oneill MD [Physician] - 08/12/21 9:15 am (Call [phone] to schedule an appointment to be seen two weeks after discharge.) PCP,NO [Physician] - (Follow up with your PCP within 1-2 weeks after discharge from the rehab.) Diet: Carb Consistent or DM2 and Heart Healthy Addtl Attending Provider Instructions: You were admitted for muscle injury after falling and being unable to get off t he ground for an extended period of time. You were also found to have a UTI which is being treated with antibiotics. Please continue the antibiotics for 4 more days. Your Oxybutynin medication for urinary incontinence was discontinued as this can put you at increased risk for urinary tract infections. You will need PT/OT at rehab to get stronger before you return home. You were also found incidentally to have an enlarging abdominal aortic aneurysm which is growing in size compared to previous and needs surgical repair. Please follow up with the Vascular Surgeon as scheduled on 08/12/21. Pending Studies at Discharge: Yes (Final blood cultures-no growth to date) Stand-Alone Forms: My [facility] Skilled Items Patient informed of condition?: Yes DNR: Yes Discharge Level of Care: Acute rehab Communicable Disease: No Discharge Prognosis: Improving Lines: None Urinary Catheter: No Medications and DC Order Prescriptions: New docusate calcium 240 mg Capsule 240 mg PO QAM Qty: 30 RF: 0 melatonin 3 mg Tablet 3 mg PO HS PRN (Reason: sleep) Qty: 10 RF: 0 cephalexin 500 mg Capsule 500 mg PO BID Qty: 8 RF: 0 multivitamin with folic acid [Daily-Gilmar (with folic acid)] 400 mcg Tablet 1 tab PO QAM Qty: 30 RF: 0 Continued tamsulosin 0.4 mg capsule 0.4 mg PO BID RF: 0 simvastatin 40 mg tablet 40 mg PO DAILY RF: 0 hydrocodone-acetaminophen 5-325 mg tablet 1 tab PO Q4H PRN (Reason: Pain) RF: 0 aspirin 81 mg Tablet,Delayed Release (Dr/Ec) 81 mg PO DAILY RF: 0 dimenhydrinate [Dramamine] 50 mg Tablet 50 mg PO DIRECTED PRN (Reason: Motion Sickness) RF: 0 doxepin 6 mg Tablet 6 mg PO HS PRN (Reason: Sleep) RF: 0 alogliptin 12.5 mg Tablet 12.5 mg PO QAM RF: 0 empagliflozin 25 mg Tablet 25 mg PO DAILY RF: 0 Changed lisinopril 20 mg Tablet 20 mg PO DAILY Qty: 0 RF: 0 Discontinued oxybutynin chloride 10 mg tablet extended release 24hr 10 mg PO DAILY Qty: 30 RF: 11 Discharge Orders: Discharge Order (Routine); Ordered 08/02/21 Ordered By: Kathleen Bass/Other Patient Handouts: Managing Type 2 Diabetes Admission Data Admit Date/Time: 07/27/21 19:22 Attending Provider: Kathleen Bailey Admit Provider: Fawad Cordova Primary Care Provider: Kade Figueroa Other Providers: [facility] ; [facility] ; Fawad Cordova ; Benny Oneill Coding Level of Care Code D/C DAY MANAGEMENT >30 MINS Diagnoses Weakness R53.1 UTI (urinary tract infection) N39.0 Rhabdomyolysis M62.82 Rhabdomyolysis type: non-traumatic BPH with elevated PSA N40.0; R97.20 AAA (abdominal aortic aneurysm) I71.4 Presence of rupture: without rupture Elevated troponin R77.8 Diabetes E11.9 Hypercholesteremia E78.00 HTN (hypertension) I10 Pancytopenia D61.818 Constipation K59.00
[2021-08-02 12:49] VITALS: BP 129/80; PULSE 63
== END 2021-08-02 15:35 | DRG 557 ==
LOC: ED 14:22 → 2N 19:22 → SUATTDRO 19:22 → 2N 21:21 → 2E 07-28 21:09 → 3E 07-31 18:08
DX: Z85.46 Personal history of malignant neoplasm of prostate; M62.82 Rhabdomyolysis; K56.41 Fecal impaction; Z92.3 Personal history of irradiation; I10 Essential (primary) hypertension; I71.4 Abdominal aortic aneurysm, without rupture; I71.02 Dissection of abdominal aorta; D61.818 Other pancytopenia; E11.9 Type 2 diabetes mellitus without complications; R74.01 Elevation of levels of liver transaminase levels; E78.00 Pure hypercholesterolemia, unspecified; Z79.84 Long term (current) use of oral hypoglycemic drugs; Z79.899 Other long term (current) drug therapy; R53.1 Weakness; R77.8 Other specified abnormalities of plasma proteins; N40.1 Benign prostatic hyperplasia with lower urinary tract symptoms; Z66 Do not resuscitate; Z88.5 Allergy status to narcotic agent; B96.1 Klebsiella pneumoniae [K. pneumoniae] as the cause of diseases classified elsewhere; Z85.830 Personal history of malignant neoplasm of bone; N39.0 Urinary tract infection, site not specified; Z20.822 Contact with and (suspected) exposure to COVID-19; Z79.82 Long term (current) use of aspirin

== ENCOUNTER 2021-09-28 07:43 | Inpatient (IN) ==
--- NOTE | 2021-08-30 13:30 | PAT Medication Instructions ---
Medication Instructions Date of Service August 30, 2021 Home Medications Medication Instructions Recorded melatonin 3 mg tablet 3 mg PO HS PRN #10 tab 08/02/21 simvastatin 40 mg tablet 40 mg PO QAM tamsulosin 0.4 mg capsule 0.4 mg PO BID alogliptin 12.5 mg tablet 12.5 mg PO QAM aspirin 81 mg tablet,delayed release 81 mg PO DAILY dimenhydrinate 50 mg tablet (Dramamine) 50 mg PO DIRECTED PRN empagliflozin 25 mg tablet 25 mg PO QAM hydrocodone 5 mg-acetaminophen 325 mg tablet 1 tab PO Q4H PRN melatonin 3 mg tablet 3 mg PO HS PRN acetaminophen 325 mg tablet 650 mg PO Q4H PRN docusate sodium 100 mg capsule 100 mg PO BID ibuprofen 200 mg tablet 600 mg PO Q8H PRN lisinopril 5 mg tablet 5 mg PO QAM oxybutynin chloride 5 mg tablet 5 mg PO BID pantoprazole 40 mg tablet,delayed release 40 mg PO HS no.58-iron bisglycinate 10 mg iron-folic acid 400 mcg capsule 1 cap PO QAM sennosides 8.6 mg-docusate sodium 50 mg tablet (Senna-Time S) 1 tab-cap PO HS PRN ASK your surgeon for instructions ibuprofen 200 mg tablet 600 mg PO Q8H PRN ASK your prescriber and surgeon aspirin 81 mg tablet,delayed release 81 mg PO DAILY DO NOT take the morning of surgery alogliptin 12.5 mg tablet 12.5 mg PO QAM dimenhydrinate 50 mg tablet (Dramamine) 50 mg PO DIRECTED PRN empagliflozin 25 mg tablet 25 mg PO QAM docusate sodium 100 mg capsule 100 mg PO BID lisinopril 5 mg tablet 5 mg PO QAM oxybutynin chloride 5 mg tablet 5 mg PO BID no.58-iron bisglycinate 10 mg iron-folic acid 400 mcg capsule 1 cap PO QAM Take morning of surgery With a small sip of water, OTHERWISE NOTHING TO EAT OR DRINK AFTER MIDNIGHT: simvastatin 40 mg tablet 40 mg PO QAM tamsulosin 0.4 mg capsule 0.4 mg PO BID hydrocodone 5 mg-acetaminophen 325 mg tablet 1 tab PO Q4H PRN (okay to take up to 4 hours prior to surgery if needed) acetaminophen 325 mg tablet 650 mg PO Q4H PRN (okay to take up to 4 hours prior to surgery if needed) Take evening before surgery tamsulosin 0.4 mg capsule 0.4 mg PO BID dimenhydrinate 50 mg tablet (Dramamine) 50 mg PO DIRECTED PRN (if needed) hydrocodone 5 mg-acetaminophen 325 mg tablet 1 tab PO Q4H PRN (if needed) melatonin 3 mg tablet 3 mg PO HS PRN (if needed) acetaminophen 325 mg tablet 650 mg PO Q4H PRN (if needed) docusate sodium 100 mg capsule 100 mg PO BID oxybutynin chloride 5 mg tablet 5 mg PO BID pantoprazole 40 mg tablet,delayed release 40 mg PO HS sennosides 8.6 mg-docusate sodium 50 mg tablet (Senna-Time S) 1 tab-cap PO HS PRN (if needed) Other Notes If you have any questions please call us at [phone] or [phone] or [phone] or [phone]
--- NOTE | 2021-09-03 10:47 | Anesthesiology Consultation ---
Date of Service September 03, 2021 Assessment & Plan (1) Encounter for pre-operative examination: - check BSG am DOS. - anesthesia reaction/post-op concerns: Pt reports h/o belligerent behavior, denies combativeness; post-op psychosis several yrs ago per pt due to emergent surgery for post-op hemorrhage and subsequent impact of additional anesthesia. He inquired if anesthesia for AAA repair could be similar to colonoscopy. We discussed the different anesthesia needs for these procedures and he verbalized understanding, denied additional questions or concerns. - discharge summary 08/02/2021 [facility]: "...abdominal aortic aneurysm, BPH, prostate cancer with metastasis, no history of cardiac disease who presents after being down for 1 day on the floor with 3 additional days of weakness preceded by chills and sweats...found to have a infrarenal abdominal aortic aneurysm of 5.4 cm with small area of contained dissection, was discussed with vascular surgery by ER prior to admission as noted and thought to be incidental...Weakness: Secondary to UTI; clearly improved therefore at present does not appear neurologictreat UTIKlebsiella, Rocephin sensitive-teated with 5 days of Rocephin and then converted to po keflex for 5 days for total 0 days therapy given fevers prior to admission. BCxs 1/2 with coag neg Staph, likely contaminant and repeat BCxs no growth...Rhabdomyolysis: 2/2 being down on ground for 24 hoursImproved;received IV fluids. held statin but can now restart. no renal failure...dc Oxybutynin for incontinence as can lead to falls and UTI... AAA (abdominal aortic aneurysm): -Vascular surgery following; CT reports acute dissection and is enlarged from previous now at 5.4cm, vascular surgery aware; no abdominal pain at present. plan for EVAR, f/u in 2 weeks with Vascular for preop...Elevated troponin Do not think significant; myocardial demand ischemia in setting of rhabdo ECHO without WMAs, with preserved EF...Diabetes: on insulin here but can restart home po meds on discharge...Pancytopenia: Chronic m=for years. had MDS panel, bone marrow aspirate, and flow cytometry in past that were negative. counts are improved and some was due to acute infection. follow CBC as outpt and f/u with Hematology..." - vascular surgery consultation 07/28/2021 [facility]: "...AAA which has enlarged from last year. The CTA shows a short dissection through the mural thrombus. This has been shown to be a precursor to future rupture. The AAA is able to be repaired by the endovascular approach...would like to have him get over this admission and have his CPK return to normal. The elevated CPK can cause injury to his kidneys and the addition of contrast from the repair may put his kidneys at a higher risk for renal impairment...to see him in the office in two week post d/c..." - oncology discharge summary 09/26/2019 [facility]: "...MRI of the lumbar spine 08/09/2019. 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 Status post completion of radiation therapy to the lumbosacral spine and right hip 09/16/2019...received 3000 cGy. Treatment given for palliation of pain...We asked him to return to our office in 3 months..." - COVID screening: Per assessment on 09/03/2021: Travel screen negative, no known COVID-19 positive contacts or current COVID-19 related symptoms in past 2 weeks. Pre-op COVID test obtained today at [facility] appt. Chart Review Chart Review: Acceptable Risk for Surgery and Patient seen in Pre Admission Testing Teaching & Discussion Pre-Anesthesia Teaching/Discussion Notes: Instructed NPO after midnight before surgery, except medications with 15 cc of water. Medication instructions provided according to the [facility] guidelines. History Surgery Operation Date: 09/07/21 10:50 Proposed Procedures p Percutaneous Endovascular Aneurysm Repair - Benny Oneill MD Height/Weight Height: 6 ft 1 in Weight: 103.2 kg Allergies Allergy/AdvReac Type Severity Reaction Status Date / Time meperidine Allergy Unknown Unknown Verified 08/30/21 11:32 morphine Allergy Unknown Unknown Verified 08/30/21 11:32 Medications Home Medications Medication Instructions Recorded Confirmed Last Taken simvastatin 40 mg tablet 40 mg PO QAM 08/27/19 08/30/21 Unknown tamsulosin 0.4 mg capsule 0.4 mg PO BID cap 08/27/19 08/30/21 Unknown alogliptin 12.5 mg tablet 12.5 mg PO QAM 07/27/21 08/30/21 Unknown aspirin 81 mg tablet,delayed 81 mg PO DAILY 07/27/21 08/30/21 Unknown release dimenhydrinate 50 mg tablet 50 mg PO DIRECTED PRN 07/27/21 08/30/21 Unknown (Dramamine) empagliflozin 25 mg tablet 25 mg PO QAM 07/27/21 08/30/21 Unknown hydrocodone 5 mg-acetaminophen 325 1 tab PO Q4H PRN 07/27/21 08/30/21 Unknown mg tablet melatonin 3 mg tablet 3 mg PO HS PRN #10 tab 08/02/21 08/30/21 Unknown acetaminophen 325 mg tablet 650 mg PO Q4H PRN 08/30/21 08/30/21 Unknown docusate sodium 100 mg capsule 100 mg PO BID 08/30/21 08/30/21 Unknown ibuprofen 200 mg tablet 600 mg PO Q8H PRN 08/30/21 08/30/21 Unknown lisinopril 5 mg tablet 5 mg PO QAM 08/30/21 08/30/21 Unknown oxybutynin chloride 5 mg tablet 5 mg PO BID 08/30/21 08/30/21 Unknown pantoprazole 40 mg tablet,delayed 40 mg PO HS 08/30/21 08/30/21 Unknown release no.58-iron bisglycinate 1 cap PO QAM 08/30/21 08/30/21 Unknown 10 mg iron-folic acid 400 mcg capsule sennosides 8.6 mg-docusate sodium 1 tab-cap PO HS PRN 08/30/21 08/30/21 Unknown 50 mg tablet (Senna-Time S) Past Medical History Medical History (Updated 09/03/21 @ 14:47 by Huong Truong PA-C) AAA (abdominal aortic aneurysm) 5.4cm (per transferring facility documentation at [facility]) Aortic dissection, abdominal "CTA shows a short dissection through the mural thrombus" plan for outpatient repair 09/07/[address] Oneill after consultation 07/28/2021 [facility] hospitalization for UTI, rhabdomyolysis BPH with elevated PSA Congestive heart failure per [facility] hangersmith call, [facility], pt states dx during most recent [facility] hospitalization (not listed in [facility] hospitalization records), EF 50-55% on 07/2021 echo Diabetes Type 2 - NIDDM Encephalopathy due to metabolic factor or toxin post-op several years ago per pt, states symptoms resolved after 2 months under psychiatric care in [place] History of anesthesia reaction belligerent post-op per pt, denies combativeness; reports post-op psychosis x 2 months he feels is related to needing additional anesthesia for post-op hemorrhage and emergent surgery Hypercholesteremia Hypertension controlled, stable per pt Myopathy multifactorial myopathy Nausea and vomiting after administration of anesthetic agent Pancytopenia Prostate cancer mets to bone s/p radiation to lumbosacral spine and right hip 08/2019 Rhabdomyolysis treated [facility] inpatient 07/2021 Secondary carcinoma of bone [facility] Patient denies h/o stroke, seizures, heart attack, or blood clots. Exercise / Class Metabolic Activity III < 4 Walking/Shop/Light housework (denies CP or SOB) Past Family History Family History Uncle Prostate cancer Grandfather Prostate cancer Past Surgical History Surgical History (Updated 09/03/21 @ 11:12 by Huong Truong PA-C) History of colonoscopy History of hernia surgery x 4, twice d/t strangulation with resection of part of small intestine complicated by hemorrhage and post-op psychosis x 2 months in [place] per pt Past Anesthesia History No Family Hx of Anesthesia Complications and Other (belligerent, denies combativeness; post-op psychosis several yrs ago per pt due to emergent surgery for post-op hemorrhage and subsequent impact of additional anesthesia) History of PONV History of PONV and Hx of Motion Sickness Social History Smoking Status: Former smoker tobacco type: cigarettes Do You Dip or Chew Tobacco: No Hx Alcohol Use: Yes Alcohol type: beer, wine and hard liquor alcohol intake frequency: holidays/special occasions only Hx Substance Use: No substance use type: does not use Review of Systems Rare reflux with certain foods. Patient denies chest pain, shortness of breath, dyspnea on exertion, fever, chills, cough, wheezing, or palpitations. Physical Exam Vital Signs Vitals BP 119/84 P 83 TEMP 98.8 SP02 94% on RA RESP 17 Physical Full cervical extension range of motion without pain Full TMJ range of motion TMD 3.5 finger breaths Mallampati Score 3 Dentition: edentulous, full upper and lower dentures Lungs: normal respiratory effort. Clear throughout to auscultation, no adventitious breath sounds Cardiac: regular rate and rhythm, 2/6 diastolic murmur noted Carotid arteries: negative bruit bilat Lab Results Anesthesia Preop Results Results Anesthesia Widget: WBC 3.98 K/uL (4.8-10.8) L 09/03/21 Hgb 11.2 g/dL (14.0-18.0) L 09/03/21 Hct 35.3 % (42-52) L 09/03/21 Plt 141 K/uL (130-400) 09/03/21 Na 138 mmol/L (136-145) 09/03/21 K 3.9 mmol/L (3.5-5.1) 09/03/21 Cl 105 mmol/L (98-107) 09/03/21 CO2 25 mmol/L (21-32) 09/03/21 BUN 12 mg/dl (6-23) 09/03/21 Creat 0.84 mg/dl (0.6-1.4) 09/03/21 Glucose Level 146 mg/dl (70-99(Fasting)) H 09/03/21 POC Glucose 155 mg/dl (70-99) H 08/02/21 PT 11.3 Seconds (9.0-12.0) 09/03/21 PTT 24.5 Seconds (21.0-31.0) 09/03/21 INR 1.1 (0.9-1.1) 09/03/21 HA1c 7.3 % (4.5-5.6) H 09/03/21 Urine Color [place] 07/27/21 Urine Appearance Turbid (Clear) A 07/27/21 Urine pH 5.0 (4.5-7.5) 07/27/21 Urine Specific [place] 1.020 (1.000-1.030) 07/27/21 Urine Protein 2+ (Negative) H 07/27/21 Urine Glucose (UA) Trace (Negative) H 07/27/21 Urine Ketones 1+ (Negative) H 07/27/21 Urine Blood 3+ (Negative) H 07/27/21 Urine Nitrite Positive (Negative) A 07/27/21 Urine Bilirubin 1+ (Negative) H 07/27/21 Urine Urobilinogen Negative (Negative) 07/27/21 Urine Leukocyte Esterase 2+ (Negative) H 07/27/21 Urine WBC (Auto) >30 /hpf (0-5) H 07/27/21 Urine RBC (Auto) >30 /hpf (0-4) H 07/27/21 Urine Hyaline Casts (Auto) 10-30 /lpf (0-5) H 07/27/21 Urine Epithelial Cells (Auto) >30 /lpf (0-5) H 07/27/21 Urine Bacteria (Auto) 4+ (Negative) H 07/27/21 Urine Yeast Not Reportable 07/27/21 SARS-CoV-2, RNA, NAAT NEGATIVE (NEGATIVE) 07/27/21 Blood Type O Positive 09/03/21 Antibody Screen NEGATIVE 09/03/21 Testing Laboratory Results Anika at Dr. Oneill's office made aware of abnormal UA. Electrocardiogram Date: 09/03/21 NSR, rate [address] abnormality Chest X-Ray Date: 09/03/21 FINDINGS: PA and lateral chest radiographs are compared to chest x-ray and chest CT dated 07/27/2021. The heart is enlarged. The pulmonary vasculature is noncongested. Mild aneurysmal dilatation and uncoiling of the thoracic aorta similar to previous. Chronic residual thickening and elevation right hemidiaphragm are unchanged. Scarring/atelectasis is seen at the lung bases. No airspace consolidation or large pleural effusion is identified. There is no pneumothorax. The skeletal structures are osteopenic. The bony thorax appears intact. IMPRESSION: 1. Mild cardiomegaly with no active disease in the chest. 2. Mild aneurysmal dilatation and uncoiling of the thoracic aorta is similar to previous. Echocardiogram Date: 07/29/21 EF 50-55% Aortic root dimension 4.4 cm RVSP elevated at 30-40mmHg Moderate cLVH Normal LV wall motion Mild aortic regurgitation Cervical Spine Date: 07/27/21 CT IMPRESSION: 1. Osteopenia with no acute osseous pathology. 2. Marked degenerative disc and degenerative joint disease. Other Testing Head CT 07/27/2021 IMPRESSION: 1. No acute intracerebral pathology. 2. Cerebral cortical atrophy and remote small vessel disease. Chest CT 07/27/2021 The airway is clear. No endobronchial lesion is identified. Lungs: The lungs are clear of acute alveolar opacities, air bronchograms or pulmonary nodules. There is mild dependent edema at the lung bases bilaterally. Pleura: There is no evidence for pleural effusion. There is no evidence for pneumothorax. Mediastinum: There is no evidence for pathologic adenopathy. The heart size is within normal limits. The thoracic aorta is within normal limits. There is no evidence for pericardial effusion. Osseous structures: There is no acute osseous pathology. A bone island is again seen with what appears to be the T8 vertebral body on the left.1 IMPRESSION: No acute chest disease. Abdomen/pelvis CT 07/27/2021 Abdominal cavity: There is no evidence for abdominal mass, adenopathy or ascites. There is a small ventral anterior abdominal wall hernia above the umbilicus containing mesenteric fat. No bowel loop herniation is seen. Adrenal glands: There are stable low-attenuation adrenal nodules characteristic of adenomas. There is no evidence for enhancing mass lesion. Kidneys: There is homogeneous attenuation of the renal parenchyma bilaterally. There is no evidence for renal calculus or hydronephrosis. There is no evidence for enhancing mass. Sharply defined simple left renal cyst is present with no further follow-up necessary for this benign finding. Bowel: The bowel loops are normally placed within the abdomen and pelvis without evidence for dilatation or obstruction. However, there is evidence for mild fecal stasis. Mild fecal impaction without evidence for obstruction. There is mild sigmoid diverticulosis without evidence for diverticulitis. There are no inflammatory changes present. There is no evidence for free air. There is no evidence for an inflamed appendix. Bladder: Rodrigues catheter is in place. : There is no evidence for pelvic mass or adenopathy. There is no evidence for pelvic ascites. Vasculature: There is a 5.4 cm infrarenal abdominal aortic aneurysm with large thrombus present. There is a small partial dissection within the thrombus as seen on images 291 to 318. There is no evidence for leakage. It does not extend more proximally or distally. Extensive atherosclerotic calcification is also present. Osseous structures: There is no acute osseous pathology. Degenerative changes are seen within the spine and both hips. IMPRESSION: 1. 5.4 cm infrarenal abdominal aortic aneurysm with a short segment of contained dissection. No evidence for leakage. 2. Mild fecal impaction and fecal stasis without evidence for dilatation or obstruction. 3. No other evidence for acute intra-abdominal pelvic abnormality. 4. Additional nonacute findings are delineated above. Compared to the previous study, there is no evidence for a dissection within the infrarenal abdominal aortic aneurysm. The aneurysm has increased in size from the previous study. It measured 4.9 cm. There was no evidence for dissection within the thrombosis on the previous study. Therefore the current dissection is acute, however, it is contained.
--- NOTE | 2021-09-27 11:57 | History & Physical Report ---
Date of Service September 27, 2021 Assessment & Plan (1) AAA (abdominal aortic aneurysm): Plan: Patient is admitted for a PEVAR of his AAA. I have discussed the risks options and benefits of the procedure with the patient. The patient understands the risks options and benefits and agrees to the procedure. Presence of rupture: without rupture Qualified Code(s): I71.4 - Abdominal aortic aneurysm, without rupture History of Present Illness Chief Complaint: AAA Primary Care Provider: Kade Figueroa MD Mr. Gato Valente is a very pleasant 81-year-old gentleman who was recently hospitalized at [facility] after he had been found down in his house for an unknown period of time. He was felt to have had weakness secondary to urinary tract infection. With treatment of his urinary tract infection, his weakness improved. However, since he had been down for some time, he had also developed rhabdomyolysis, which improved with IV fluids. Of note, this gentleman does have a history of prostate cancer with metastases to the bone. During the hospitalization, he was noted to have an abdominal aortic aneurysm. This had measured up to 5.4 cm. He previously had followed for this at the [place] and several months prior to that, it had been 4.9 cm. The patient denies any abdominal pain. He does have some chronic back pain. However, he is uncertain if this is related to his history of bone metastases and radiation therapy. He reports that he has been discharged from rehab. He is currently living at an assisted living facility and feels that he is close to his normal functional status. Allergies Allergy/AdvReac Type Severity Reaction Status Date / Time meperidine Allergy Unknown Unknown Verified 08/30/21 11:32 morphine Allergy Unknown Unknown Verified 08/30/21 11:32 Home Medications Medication Instructions Recorded Confirmed Type simvastatin 40 mg tablet 40 mg PO QAM 08/27/19 08/30/21 History tamsulosin 0.4 mg capsule 0.4 mg PO BID cap 08/27/19 08/30/21 History alogliptin 12.5 mg tablet 12.5 mg PO QAM 07/27/21 08/30/21 History aspirin 81 mg tablet,delayed 81 mg PO DAILY 07/27/21 08/30/21 History release dimenhydrinate 50 mg tablet 50 mg PO DIRECTED PRN 07/27/21 08/30/21 History (Dramamine) empagliflozin 25 mg tablet 25 mg PO QAM 07/27/21 08/30/21 History hydrocodone 5 mg-acetaminophen 325 1 tab PO Q4H PRN 07/27/21 08/30/21 History mg tablet melatonin 3 mg tablet 3 mg PO HS PRN #10 tab 08/02/21 08/30/21 Rx acetaminophen 325 mg tablet 650 mg PO Q4H PRN 08/30/21 08/30/21 History docusate sodium 100 mg capsule 100 mg PO BID 08/30/21 08/30/21 History ibuprofen 200 mg tablet 600 mg PO Q8H PRN 08/30/21 08/30/21 History lisinopril 5 mg tablet 5 mg PO QAM 08/30/21 08/30/21 History oxybutynin chloride 5 mg tablet 5 mg PO BID 08/30/21 08/30/21 History pantoprazole 40 mg tablet,delayed 40 mg PO HS 08/30/21 08/30/21 History release no.58-iron bisglycinate 1 cap PO QAM 08/30/21 08/30/21 History 10 mg iron-folic acid 400 mcg capsule sennosides 8.6 mg-docusate sodium 1 tab-cap PO HS PRN 08/30/21 08/30/21 History 50 mg tablet (Senna-Time S) Past Med/Surg History Medical History AAA (abdominal aortic aneurysm) 5.4cm (per transferring facility documentation at [facility]) Aortic dissection, abdominal "CTA shows a short dissection through the mural thrombus" plan for outpatient repair 09/07/[address] 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, [facility], pt states dx during most recent [facility] hospitalization (not listed in [facility] hospitalization records), EF 50-55% on 07/2021 echo Diabetes Type 2 - NIDDM Encephalopathy due to metabolic factor or toxin post-op several years ago per pt, states symptoms resolved after 2 months under psychiatric care in [place] History of anesthesia reaction belligerent post-op per pt, denies combativeness; reports post-op psychosis x 2 months he feels is related to needing additional anesthesia for post-op hemorrhage and emergent surgery Hypercholesteremia Hypertension controlled, stable per pt Myopathy multifactorial myopathy Nausea and vomiting after administration of anesthetic agent Pancytopenia Prostate cancer mets to bone s/p radiation to lumbosacral spine and right hip 08/2019 Rhabdomyolysis treated [facility] inpatient 07/2021 Secondary carcinoma of bone Sleep apnea per [place] records Surgical History History of colonoscopy History of hernia surgery x 4, twice d/t strangulation with resection of part of small intestine complicated by hemorrhage and post-op psychosis x 2 months in [place] per pt Family History Uncle Prostate cancer Grandfather Prostate cancer Social History Smoking Status: Former smoker Second Hand Exposure: No; Hx Alcohol Use: Yes Alcohol type: beer, wine and hard liquor Hx Substance Use: No Preferred Language: Somali Communication Ability: Effective Adjunct Writing Instructor Required: No Beliefs That Will Affect Care: None marital status: Current Living Situation: [facility]way Current Living Situation Comment: [facility] Assistive Devices: Walker Review of Systems All systems reviewed & are unremarkable except as noted in HPI & below Physical Exam Physical Exam: Constitutional:L WD/WN, vitals as a teresa Respiratory: normal respiratory effort, lungs adelaide ar to auscultation Cardiovascular:L RRR, no murmur, no edema Vessels: a bdominal aortic pu lse present (widen ed on exam), femor al pulses present and radial pulses present; no caroti d bruit Extremiti es: normal capilla ry refill Gastrointestinal ( Abdomen): Inspection/Auscult ation: abdomen nor mal to inspection; abdomen not diste nded Percussion/P alpation: abdomen soft; abdomen nont jayce Musculoskeletal: no cyanosis or clu bbing, extremities motor strength 5/ 5 Neurologic: CN's II-XI intact bilaterally and mo ves all extremitie s Psychiatric: Orientation: alert and oriented x 3
[~2021-09-28 07:43] MED LIST: LACTATED RINGER'S 1,000 ML IV SCH; ceFAZolin 2000MG 2,000 MG/15 ML SYR IV SCH
[2021-09-28] MEDS ORDERED: fentaNYL citrate 100 MCG/2 ML VIAL ONE ×2 (08:18→10:03)
[2021-09-28] MEDS ORDERED: LIDOCAINE 2% 2 ML VIAL/AMP(20MG/ML) INFIL ONE (08:27)
[2021-09-28] MEDS ORDERED: PROPOFOL IV EMULSION 10 MG/ML 20 ML VIAL IV ONE (08:27)
--- NOTE | 2021-09-28 08:37 | History & Physical Bridge Note ---
Date of Service September 28, 2021 History & Physical Bridge Note I have examined the patient, reviewed the History & Physical and in the interval since the performance of the History & Physical I have noted the following changes of clinical significance: no changes noted
[2021-09-28] MEDS ORDERED: ONDANSETRON INJ 2 MG/ML 2 ML VIAL ONE (09:56)
[2021-09-28] MEDS ORDERED: ePHEDrine sulfate 50 MG/ML AMP IV PRN (10:00)
[2021-09-28] MEDS ORDERED: ONDANSETRON INJ 2 MG/ML 2 ML VIAL IV PRN ×2 (10:00→13:11)
[2021-09-28] MEDS ORDERED: fentaNYL citrate 100 MCG/2 ML VIAL IV PRN (10:00)
[2021-09-28] MEDS ORDERED: ATROPINE SULFATE 0.1 MG/ML 10ML SYR IV PRN (10:00)
[2021-09-28] MEDS ORDERED: HEPARIN SOD (PORCINE) 1000 UNIT/ML ONE (10:09)
[2021-09-28] MEDS ORDERED: ePHEDrine sulfate 50 MG/ML SYR ONE (10:42)
[2021-09-28] MEDS ORDERED: VISIPAQUE IV PRN (11:10)
[2021-09-28] MEDS ORDERED: ARISTA ABSORBABLE HEMOSTAT 3GM TOP ONE (11:10)
--- NOTE | 2021-09-28 11:36 | Procedure Note ---
Angiogram Post Procedure Fluoroscopy Time (minutes): 19.3 Radiation (mGy): 715 Contrast: 143 Post Operative Report Pre & Post Diagnosis Operation Date: 09/28/21 08:00 Pre-Op Diagnosis: Abdominal Aortic Aneurysm Post-Op Diagnosis: Abdominal Aortic Aneurysm I identified the patient and participated in the time-out.: Yes Procedure Operation Date: 09/28/21 08:00 Actual Procedures p Percutaneous Endovascular Aortic Aneurysm Repair, Proximal Extension, Mechanical Closure of Bilateral Femoral Arteries (Bilateral) - Benny Oneill MD Surgeon Benny Oneill MD Optometrist/Practice Owner Elian Sawyer MD Estimated Blood Loss 20 Findings See Below Groins hemostatic. No hematoma. DP & PT palpable pulses. Specimens None Drains None Anesthesia Type General Indications 81-year-old male with diabetes, hypertension, hyperlipidemia, BPH and 5.5 cm infrarenal AAA. He was consented for EVAR and all indicated procedures. Description of Procedure Patient was brought to the OR and placed in supine position. After all the lines were placed by anesthesia team, general anesthesia was induced. Patient was prepped and draped in fashion. A safety timeout was performed to identify the patient's name, date of and procedure. Ultrasound-guided access was obtained of the right groin using modified Seldinger technique. We exchanged the needle with 6 Slovenian sheath. Sheath was flushed with hep saline. We then turned our attention to the left side and we similarly accessed under ultrasound guidance and placed a 6 Slovenian sheath. We then deployed Perclose devices on both groins. There were placed in the 2 and 10 o'clock position. Of note, 2 Perclose's were misfired on the right side due to malpositioning of the device. After devices were deployed an 8 Slovenian sheaths were placed bilaterally over short J-wires. Sheaths were flushed in usual fashion. At this point, we heparinized the patient with 8000 units of IV heparin. An 0.035 Glidewire was advanced through right 8 Slovenian sheath and a Kumpe catheter was used to exchanged the Glidewire with a stiff Mariah wire. We serially upsized the right access with 16 Slovenian dilator and placed in 18 Slovenian dry seal sheath. We then turned our attention to the left side. We placed a Glidewire up in the aorta and then used a Kumpe catheter to exchange the wire to stiff Mariah wire. We upsized on the left with a 14 Slovenian dry seal sheath. A [place] excluder device 31 mm x 14 mm x 15 cm was advanced on the right side. A pigtail catheter was advanced through the left side. An aortogram was performed and we marked the renal arteries. Under direct fluoroscopy, we deployed the device. Positioning was checked with another run. Good positioning was noted we and we therefore released the hooks. We then cannulated the contralateral gate using a combination of Glidewire and Kumpe catheter. We spinned the catheter within the proximal portion of the device confirming its location. Hand-injection through the left sheath was performed to identify the left iliac bifurcation. We decided to use a 16 x 18 x 13-1/2 contralateral limb. The Kumpe catheter was removed leaving the wire wire in place. The sheath was advanced over its dilator all the way through the contralateral gate. We then advanced a 16 mm x 18 mm x 13.5 cm contralateral limb. The sheath was pulled back and we deployed the limb. We then finished deploying the device and the ipsilateral limb. We did noticed on the aortogram that the proximal portion of the device is not well opposed on the left side due to angulation of the neck. We decided to extend proximally using 32 mm x 4.5 cm comformable cuff. Once this was deployed, We ballooned the device using Q-50 balloon proximal and through the right and left limbs. Completion angiogram demonstrated no endoleak with good seal. Both renal arteries and hypogastrics were visualized and patent. We then removed the catheter leaving the sheaths and wires. We removed the sheath and tied off the Perclose sutures on the left side. Satisfactory hemostasis was achieved, the wire was pulled, Perclose stitches were cut and Amparo was applied in the wound. We then turned our attention to the right side. Similarly, we removed the sheath, tied the Perclose sutures and held manual pressure till satisfactory hemostasis was achieved. The Perclose stitches were cut and Amparo was applied to the wound. Both wounds were covered with Steri-Strips, Tegaderm and pressure dressings. At the end of the case, the patient had palpable DP and PT pulses bilaterally with no hematomas at the access site. All counts were correct. Dr. Oneill was present for the entirety of the procedure. Patient was extubated, and taken to the PACU in stable condition. I attest to the content of the Intraoperative Record and any orders documented therein. Any exceptions are noted below. Supervising Physician Co-Signing Physician Notes Benny Oneill MD
--- NOTE | 2021-09-28 11:40 | Post Operative Brief Note ---
Immediate Post Op Note v1 Date of Surgery September 28, 2021 Pre & Post Diagnosis Operation Date: 09/28/21 08:00 Pre-Op Diagnosis: Abdominal Aortic Aneurysm Post-Op Diagnosis: Abdominal Aortic Aneurysm I identified the patient and participated in the time-out.: Yes Procedure Operation Date: 09/28/21 08:00 Actual Procedures p Percutaneous Endovascular Aortic Aneurysm Repair, Proximal Extension, Mechanical Closure of Bilateral Femoral Arteries (Bilateral) - Benny Oneill MD Surgeon Benny Oneill MD Security Sales Consultant Elian Sawyer MD Estimated Blood Loss 20 Findings Consistent with Post-Op Diagnosis Drains Rodrigues Catheter (16 fr) Anesthesia Type General Complications none Disposition Accompanied Patient To Recovery: No Disposition: Recovery Room
[2021-09-28 12:09] LABS: Hematocrit (blood only) 30.8 % (42-52); Hemoglobin 9.9 g/dL (14.0-18.0)
--- NOTE | 2021-09-28 12:31 | Anesthesiology Progress Note ---
Date of Service September 28, 2021 Anesthesia Post Procedure Vital Signs Vital Signs: Temp Pulse Pulse Resp BP BP Pulse Ox 09/28/21 12:25 97.9 F 64 12 107/76 95 09/28/21 12:15 62 12 106/74 93 09/28/21 12:05 64 20 106/76 94 09/28/21 11:55 68 20 112/78 92 09/28/21 11:48 97.0 F L 74 20 109/78 92 09/28/21 08:15 99.0 F 58 L 18 140/80 122/84 94 Pain Intensity Back: Pain Intensity: 6 Transfer of Care Handoff Completed per policy Notes Mental Status: alert / awake / arousable and participated in evaluation Patient Amnestic to Procedure: Yes Nausea / Vomiting: adequately controlled Pain: adequately controlled Airway Patency, RR, SpO2: stable & adequate BP & HR: stable & adequate Hydration State: stable & adequate Anesthetic Complications: no major complications apparent and Pt Satisfied with anesthetic care
[2021-09-28] MEDS ORDERED: ROCURONIUM BROMIDE 10 MG/ML 5 ML VIAL IV ONE (13:02)
[2021-09-28] MEDS ORDERED: NEOSTIGMINE METHYLSULFATE 1 MG/ML 10ML VIAL ONE (13:05)
[2021-09-28] MEDS ORDERED: GLYCOPYRROLATE 0.2 MG/ML VIAL ONE (13:05)
[2021-09-28] MEDS ORDERED: oxyCODONE/ACETAMINOPHEN 5mg/325mg TAB PO PRN (13:11)
[2021-09-28] MEDS ORDERED: ACETAMINOPHEN 325 MG TAB PO PRN (13:11)
[2021-09-28] MEDS ORDERED: MELATONIN 3 MG TAB PO PRN (13:11)
[2021-09-28] MEDS ORDERED: IBUPROFEN 600 MG TAB PO PRN (13:11)
[2021-09-28] MEDS ORDERED: HYDROmorphone INJ 0.5 MG/0.5 ML SYR IV PRN (13:11)
[2021-09-28] MEDS ORDERED: DOCUSATE SODIUM/SENNA 50/8.6MG TAB PO PRN (13:11)
[2021-09-28] MEDS: D5W AND 1/2NSS 1,000 ML IV SCH ×2 (14:05→20:38)
--- NOTE | 2021-09-28 15:01 | Critical Care Consultation ---
Date of Consultation September 28, 2021 Assessment & Plan (1) AAA (abdominal aortic aneurysm): Patient admitted to the ICU status post PEVAR for ICU monitoring. Defer BP management and pain control to vascular surgery. Monitor for postop ileus. Diet ordered by vascular surgery. History of Present Illness Reason for Consultation: Postop PEVAR monitoring in ICU Attending Physician: Benny Oneill MD History of Present Illness 81-year-old male presenting to the hospital today for PEVAR. He is recently discharged from the hospital in July due to a UTI and rhabdomyolysis. He was found to have an abdominal aortic aneurysm measuring 5.4 cm during the hospitalization. He underwent an elective PEVAR today. His other past medical history includes metastatic prostate cancer. He is doing well at this time and remains hemodynamically stable. He denies any significant complaint at this time other than being hungry. Post procedure labs demonstrate mild anemia with a hemoglobin of 9.9. Allergies Allergy/AdvReac Type Severity Reaction Status Date / Time meperidine Allergy Unknown Unknown Verified 09/28/21 08:10 morphine Allergy Unknown Unknown Verified 09/28/21 08:10 Home Medications Medication Instructions Recorded Confirmed Type simvastatin 40 mg tablet 40 mg PO QAM 08/27/19 09/28/21 History tamsulosin 0.4 mg capsule 0.4 mg PO BID cap 08/27/19 09/28/21 History alogliptin 12.5 mg tablet 12.5 mg PO QAM 07/27/21 09/28/21 History aspirin 81 mg tablet,delayed 81 mg PO DAILY 07/27/21 09/28/21 History release dimenhydrinate 50 mg tablet 50 mg PO DIRECTED PRN 07/27/21 09/28/21 History (Dramamine) empagliflozin 25 mg tablet 25 mg PO QAM 07/27/21 09/28/21 History hydrocodone 5 mg-acetaminophen 325 1 tab PO Q4H PRN 07/27/21 09/28/21 History mg tablet melatonin 3 mg tablet 3 mg PO HS PRN #10 tab 08/02/21 09/28/21 Rx acetaminophen 325 mg tablet 650 mg PO Q4H PRN 08/30/21 09/28/21 History docusate sodium 100 mg capsule 100 mg PO BID 08/30/21 09/28/21 History ibuprofen 200 mg tablet 600 mg PO Q8H PRN 08/30/21 09/28/21 History lisinopril 5 mg tablet 5 mg PO QAM 08/30/21 09/28/21 History oxybutynin chloride 5 mg tablet 5 mg PO BID 08/30/21 09/28/21 History pantoprazole 40 mg tablet,delayed 40 mg PO HS 08/30/21 09/28/21 History release no.58-iron bisglycinate 1 cap PO QAM 08/30/21 09/28/21 History 10 mg iron-folic acid 400 mcg capsule sennosides 8.6 mg-docusate sodium 1 tab-cap PO HS PRN 08/30/21 09/28/21 History 50 mg tablet (Senna-Time S) Patient History Medical History AAA (abdominal aortic aneurysm) 5.4cm (per transferring facility documentation at [facility]) Aortic dissection, abdominal "CTA shows a short dissection through the mural thrombus" plan for outpatient repair 09/07/[address] 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, not listed in [place] records, pt states dx during most recent [facility] hospitalization (not listed in [facility] hospitalization records), EF 50-55% on 07/2021 echo Diabetes Type 2 - NIDDM Encephalopathy due to metabolic factor or toxin post-op several years ago per pt, states symptoms resolved after 2 months under psychiatric care in [place] History of anesthesia reaction belligerent post-op per pt, denies combativeness; reports post-op psychosis x 2 months he feels is related to needing additional anesthesia for post-op hemorrhage and emergent surgery Hypercholesteremia Hypertension controlled, stable per pt Myopathy multifactorial myopathy Nausea and vomiting after administration of anesthetic agent Pancytopenia Prostate cancer mets to bone s/p radiation to lumbosacral spine and right hip 08/2019 Rhabdomyolysis treated [facility] inpatient 07/2021 Secondary carcinoma of bone Sleep apnea per [place] records Surgical History History of colonoscopy History of hernia surgery x 4, twice d/t strangulation with resection of part of small intestine complicated by hemorrhage and post-op psychosis x 2 months in [place] per pt Family History Uncle Prostate cancer Grandfather Prostate cancer Social History Smoking Status: Former smoker Second Hand Exposure: No; Do You Dip or Chew Tobacco: No; Tobacco Cessation Education Requested by Patient: No Hx Alcohol Use: No Hx Substance Use: No Preferred Language: Tunisian Communication Ability: Effective Communication Ability Comment: alert and oriented. able to sign own consents. Machine Chocolate Molder Required: No Beliefs That Will Affect Care: None marital status: Current Living Situation: Group Home Current Living Situation Comment: [facility] Feels Safe at Home: Yes Safety Concerns: Feels Safe At This Time Assistive Devices: Cane, Denture - Upper and Denture - Lower Assistive Devices Comment: ambulates with walker Review of Systems Review of Systems: All systems reviewed & are unremarkable except as noted in HPI & below Physical Exam Constitutional: WD/WN, vitals as above Cardiovascular: RRR, no murmur, no edema Peripheral lower and upper extremity pulses intact Gastrointestinal (Abdomen): normal bowel sounds, soft, nontender, no hepatosplenomegaly Musculoskeletal: no cyanosis or clubbing, extremities motor strength 5/5 Neurologic: PERRL, EOMI, accommodation nl, no face palsy, no dysarthria Psychiatric: A+Ox3, euthymic affect Results & Data Results & Data ([facility]) Vital Signs (Past 12 Hours) Vital Signs Temp Pulse Pulse Pulse Resp BP BP 09/28/21 14:15 59 L 17 09/28/21 14:00 67 16 131/83 09/28/21 13:45 64 18 09/28/21 13:34 36.6 C 64 18 09/28/21 13:30 62 17 09/28/21 13:15 64 20 09/28/21 13:11 36.6 C 09/28/21 13:04 68 17 113/79 09/28/21 13:00 67 12 09/28/21 12:45 63 18 09/28/21 12:35 66 15 09/28/21 12:25 36.6 C 64 12 09/28/21 12:15 62 12 09/28/21 12:05 64 20 09/28/21 11:55 68 20 09/28/21 11:48 36.1 C L 74 20 09/28/21 08:15 37.2 C 58 L 18 140/80 BP Pulse Ox 09/28/21 14:15 96 09/28/21 14:00 96 09/28/21 13:45 98 09/28/21 13:34 95 09/28/21 13:30 99 09/28/21 13:15 95 09/28/21 13:11 09/28/21 13:04 09/28/21 13:00 09/28/21 12:45 118/78 95 09/28/21 12:35 111/76 97 09/28/21 12:25 107/76 95 09/28/21 12:15 106/74 93 09/28/21 12:05 106/76 94 09/28/21 11:55 112/78 92 09/28/21 11:48 109/78 92 09/28/21 08:15 122/84 94 Coding Level of Care Code 03907 Inpt Consult Level 3 Diagnoses AAA (abdominal aortic aneurysm) I71.4 Presence of rupture: without rupture (1) AAA (abdominal aortic aneurysm) Presence of rupture: without rupture Qualified Code(s): I71.4 - Abdominal aortic aneurysm, without rupture
[2021-09-28] MEDS: ceFAZolin 2000MG 2,000 MG/15 ML SYR IV SCH (17:12)
[2021-09-28] MEDS: HYDROCODONE/ACETAMOPHEN 5/325MG TAB PO PRN (17:46)
[2021-09-28] MEDS: OXYBUTYNIN CHLORIDE 5 MG TAB PO SCH (19:59)
[2021-09-28] MEDS: TAMSULOSIN HCL 0.4 MG CAP PO SCH (20:00)
[2021-09-28] MEDS: PANTOprazole 40 MG TAB PO SCH (20:00)
[2021-09-28] MEDS: DOCUSATE SODIUM 100 MG CAP PO SCH (20:00)
[2021-09-29] MEDS: ceFAZolin 2000MG 2,000 MG/15 ML SYR IV SCH (01:50)
[2021-09-29] MEDS: HYDROCODONE/ACETAMOPHEN 5/325MG TAB PO PRN ×3 (02:19→21:07)
[2021-09-29] MEDS: D5W AND 1/2NSS 1,000 ML IV SCH (04:28)
[2021-09-29 05:49] LABS: BUN Creatinine Ratio 16.2 (10-20); Calcium 8.7 mg/dl (8.5-10.1); Creatinine Clr Calc Pharmacy 98.8 ml/min; Est GFR (Non-African American) 87.1 ml/min; Potassium 3.5 mmol/L (3.5-5.1)
[2021-09-29 05:50] LABS: Hematocrit (blood only) 30.1 % (42-52); Hemoglobin 9.6 g/dL (14.0-18.0); Mean Corpuscular Hgb Conc 31.9 g/dL (32-36); Mean Corpuscular Volume 106.7 fL (80-100); RDW Coefficient of Variation 15.2 % (11.5-14.5); RDW Standard Deviation 59.3 fL (36.4-46.3); Red Blood Count 2.82 M/uL (4.7-6.1); White Blood Count 3.21 K/uL (4.8-10.8)
[2021-09-29 06:08] LABS: Mean Platelet Volume 11.7 fL (7.4-10.4); Platelet Count 86 K/uL (130-400)
[2021-09-29 06:09] LABS: Basophils # (auto) 0.02 K/uL (0-0.2); Basophils % (auto) 0.6 %; Eosinophils # (auto) 0.09 K/uL (0-0.5); Eosinophils % (auto) 2.8 %; Immature Granulocytes # (auto) 0.04 K/uL (0.00-0.02); Immature Granulocytes % (auto) 1.2 %; Lymphocytes % (auto) 18.7 %; Monocytes # (auto) 0.29 K/uL (0.11-0.59); Neutrophils # (auto) 2.17 K/uL (1.4-6.5); Neutrophils % (auto) 67.7 %; Platelet Estimate Decreased (Normal)
[2021-09-29] MEDS: TAMSULOSIN HCL 0.4 MG CAP PO SCH ×2 (08:57→21:08)
[2021-09-29] MEDS: ASPIRIN 81 MG ECTAB PO SCH (08:58)
[2021-09-29] MEDS: lisinopril 5 MG TAB PO SCH (08:58)
[2021-09-29] MEDS: DOCUSATE SODIUM 100 MG CAP PO SCH ×2 (08:58→21:08)
[2021-09-29] MEDS: SIMVASTATIN 40 MG TAB PO SCH (08:58)
[2021-09-29] MEDS: OXYBUTYNIN CHLORIDE 5 MG TAB PO SCH ×2 (08:58→21:07)
[2021-09-29] MEDS ORDERED: [UNRECOGNIZED DRUG - REMARK] PO SCH (09:00)
--- NOTE | 2021-09-29 09:59 | Critical Care Progress Note ---
Date of Service September 29, 2021 Assessment & Plan (1) AAA (abdominal aortic aneurysm): Plan: Patient admitted to the ICU status post PEVAR for ICU monitoring. Defer BP management and pain control to vascular surgery. Monitor for postop ileus. Diet ordered by vascular surgery. Possible discharge or downgrade later today. Admission and Anticipated Discharge Date Admission Date: September 28, 2021 Subjective No acute events overnight. Patient with flatus. He is resting comfortably this morning. Tolerating his diet. Discussed with bedside RN. Physical Exam Constitutional: WD/WN, vitals as above Cardiovascular: RRR, no murmur, no edema Gastrointestinal (Abdomen): normal bowel sounds, soft, nontender, no hepatosplenomegaly Musculoskeletal: no cyanosis or clubbing, extremities motor strength 5/5 Neurologic: PERRL, EOMI, accommodation nl, no face palsy, no dysarthria Psychiatric: A+Ox3, euthymic affect Results & Data Results & Data ([facility]) Vital Signs (Past 12 Hours) Vital Signs Temp Pulse Resp BP Pulse Ox 09/29/21 08:47 93 09/29/21 08:01 64 22 131/95 95 09/29/21 08:00 37.1 C 62 22 97 09/29/21 07:00 64 20 126/87 90 09/29/21 06:00 55 L 18 150/88 H 96 09/29/21 05:00 58 L 18 132/92 95 09/29/21 04:00 69 18 150/81 H 88 L 09/29/21 03:00 37.0 C 65 17 153/95 H 92 09/29/21 02:34 70 21 163/93 H 93 09/29/21 02:00 61 20 96 09/29/21 01:00 68 18 142/102 H 95 09/29/21 00:00 37 C 68 19 142/102 H 94 09/28/21 23:09 57 L 09/28/21 23:00 59 L 19 140/91 96 09/28/21 22:00 64 19 150/84 H 98 Coding Level of Care Code 99820 Subseq Hosp Care Lvl 1 Diagnoses AAA (abdominal aortic aneurysm) I71.4 Presence of rupture: without rupture (1) AAA (abdominal aortic aneurysm) Presence of rupture: without rupture Qualified Code(s): I71.4 - Abdominal aortic aneurysm, without rupture
--- NOTE | 2021-09-29 13:04 | Surgery Progress Note ---
Date of Service September 29, 2021 Assessment & Plan (1) S/P endovascular aneurysm repair: Plan: Doing well Will transfer to floor. D/C tomorrow Admission and Anticipated Discharge Date Admission Date: September 28, 2021 Subjective Patient with no complaints. No leg or groin pain Physical Exam Constitutional: WD/WN, vitals as above Respiratory: normal respiratory effort; no respiratory distress Cardiovascular: Rate/Rhythm: regular rate and regular rhythm Extremities: normal capillary refill Gastrointestinal (Abdomen): Percussion/Palpation: abdomen soft; abdomen nontender Skin: + incision (puncture sites clean and dry) Results & Data ([facility]) Vital Signs (Past 12 Hours) Vital Signs Temp Pulse Resp BP Pulse Ox 09/29/21 10:24 68 20 140/88 96 09/29/21 09:00 66 15 130/83 93 09/29/21 08:47 93 09/29/21 08:01 64 22 131/95 95 09/29/21 08:00 37.1 C 74 22 97 09/29/21 07:00 64 20 126/87 90 09/29/21 06:00 55 L 18 150/88 H 96 09/29/21 05:00 58 L 18 132/92 95 09/29/21 04:00 69 18 150/81 H 88 L 09/29/21 03:00 37.0 C 65 17 153/95 H 92 09/29/21 02:34 70 21 163/93 H 93 09/29/21 02:00 61 20 96
[2021-09-29] MEDS ORDERED: POLYETHYLENE (MIRALAX) 17 GM PACK PO PRN (13:39)
[2021-09-29] MEDS: POLYETHYLENE (MIRALAX) 17 GM PACK PO SCH (16:38)
[2021-09-29] MEDS: PANTOprazole 40 MG TAB PO SCH (21:08)
[2021-09-29 22:56] VITALS: O2SAT 92
[2021-09-30 07:12] LABS: Hematocrit (blood only) 31.1 % (42-52); Mean Corpuscular Hemoglobin 33.7 pg (25-34); Mean Corpuscular Hgb Conc 32.2 g/dL (32-36); Mean Corpuscular Volume 104.7 fL (80-100); RDW Coefficient of Variation 15.2 % (11.5-14.5); RDW Standard Deviation 58.4 fL (36.4-46.3); Red Blood Count 2.97 M/uL (4.7-6.1); White Blood Count 2.69 K/uL (4.8-10.8)
[2021-09-30 07:13] LABS: Mean Platelet Volume 10.7 fL (7.4-10.4); Platelet Count 79 K/uL (130-400)
[2021-09-30 07:38] LABS: BUN Creatinine Ratio 19.7 (10-20); Calcium 9.3 mg/dl (8.5-10.1); Creatinine Clr Calc Pharmacy 122.3 ml/min; Est GFR (African American) 109.3 ml/min; Est GFR (Non-African American) 94.3 ml/min; Potassium 3.6 mmol/L (3.5-5.1)
[2021-09-30 07:41] LABS: Basophils # (auto) 0.02 K/uL (0-0.2); Basophils % (auto) 0.7 %; Eosinophils # (auto) 0.08 K/uL (0-0.5); Immature Granulocytes # (auto) 0.03 K/uL (0.00-0.02); Immature Granulocytes % (auto) 1.1 %; Lymphocytes % (auto) 29.7 %; Monocytes # (auto) 0.28 K/uL (0.11-0.59); Monocytes % (auto) 10.4 %; Neutrophils # (auto) 1.48 K/uL (1.4-6.5); Neutrophils % (auto) 55.1 %
[2021-09-30] MEDS: ASPIRIN 81 MG ECTAB PO SCH (08:05)
[2021-09-30] MEDS: lisinopril 5 MG TAB PO SCH (08:05)
[2021-09-30] MEDS: DOCUSATE SODIUM 100 MG CAP PO SCH (08:05)
[2021-09-30] MEDS: OXYBUTYNIN CHLORIDE 5 MG TAB PO SCH (08:06)
[2021-09-30] MEDS: SIMVASTATIN 40 MG TAB PO SCH (08:06)
[2021-09-30] MEDS: TAMSULOSIN HCL 0.4 MG CAP PO SCH (08:06)
[2021-09-30] MEDS: POLYETHYLENE (MIRALAX) 17 GM PACK PO SCH (08:10)
--- NOTE | 2021-09-30 15:09 | Surgery Progress Note ---
Date of Service September 30, 2021 Assessment & Plan (1) S/P endovascular aneurysm repair: Plan: Doing well D/c today Admission and Anticipated Discharge Date Admission Date: September 28, 2021 Subjective Patient with no complaints. No leg or groin pain Physical Exam Constitutional: WD/WN, vitals as above Respiratory: normal respiratory effort; no respiratory distress Cardiovascular: Rate/Rhythm: regular rate and regular rhythm Extremities: normal capillary refill Gastrointestinal (Abdomen): Percussion/Palpation: abdomen soft; abdomen nontender Skin: + incision (puncture sites clean and dry) Psychiatric: Orientation: alert and oriented x 3 Results & Data ([facility]) Vital Signs (Past 12 Hours) Vital Signs Temp Pulse Resp BP Pulse Ox 09/30/21 07:20 36.8 C 64 20 139/85 92
[2021-09-30 16:23] VITALS: BP 117/77; PULSE 67; TEMP 99.5
--- NOTE | 2021-10-01 08:19 | Discharge Summary ---
Date of Service October 01, 2021 Admission HPI Per Admitting Provider Mr. Gato Valente is a very pleasant 81-year-old gentleman who was recently hospitalized at [facility] after he had been found down in his house for an unknown period of time. He was felt to have had weakness secondary to urinary tract infection. With treatment of his urinary tract infection, his weakness improved. However, since he had been down for some time, he had also developed rhabdomyolysis, which improved with IV fluids. Of note, this gentleman does have a history of prostate cancer with metastases to the bone. During the hospitalization, he was noted to have an abdominal aortic aneurysm. This had measured up to 5.4 cm. He previously had followed for this at the [facility] and several months prior to that, it had been 4.9 cm. The patient denies any abdominal pain. He does have some chronic back pain. However, he is uncertain if this is related to his history of bone metastases and radiation therapy. He reports that he has been discharged from rehab. He is currently living at an a [facility] living facility and feels that he is close to his normal functional status. Admission Exam Per Admitting Provider H Constitutional:L WD/WN, vitals as a teresa Respiratory: normal respiratory effort, lungs adelaide ar to auscultation Cardiovascular:L RRR, no murmur, no edema Vessels: a bdominal aortic pu lse present (widen ed on exam), femor al pulses present and radial pulses present; no caroti d bruit Extremiti es: normal capilla ry refill Gastrointestinal ( Abdomen): Inspection/Auscult ation: abdomen nor mal to inspection; abdomen not diste nded Percussion/P alpation: abdomen soft; abdomen nont jayce Musculoskeletal: no cyanosis or clu bbing, extremities motor strength 5/ 5 Neurologic: CN's II-XI intact bilaterally and mo ves all extremitie s Psychiatric: Orientation: alert and oriented x 3 Principal Diagnosis 1. s/p PEVAR 2. AAA Discharge Exam Constitutional WD/WN, vitals as above Respiratory normal respiratory effort; no respiratory distress Cardiovascular Rate/Rhythm: regular rate and regular rhythm Extremities: normal capillary refill Gastrointestinal (Abdomen) Percussion/Palpation: abdomen soft; abdomen nontender Skin + incision (puncture sites clean and dry) Psychiatric Orientation: alert and oriented x 3 Discharge Data Allergies Allergy/AdvReac Type Severity Reaction Status Date / Time meperidine Allergy Unknown Unknown Verified 09/28/21 08:10 morphine Allergy Unknown Unknown Verified 09/28/21 08:10 Consultations 09/28/21 13:11 Consult Strip Feeder Routine Procedures Performed Operation Date: 09/28/21 08:00 Actual Procedures p Percutaneous Endovascular Aortic Aneurysm Repair, Proximal Extension, Mechanical Closure of Bilateral Femoral Arteries (Bilateral) - Benny Oneill MD Ordered Studies 09/28/21 07:06 US point of care ultrasound Stat 09/28/21 07:21 EV AAA repair aorta only Routine US EV guide vascular access Routine Hospital Course (1) S/P endovascular aneurysm repair: Doing well POD #1 D/c home today Total Time Total Time Spent Total Time Spent (In Minutes): 0 Discharge Plan Discharge Items Patient Disposition: Personal Jail Reason For Visit: Abdominal Aortic Aneurysm Discharge Diagnosis: Abdominal Aortic aneurysm repair Activity: Per Instructions section Non-emergency contact: Surgeon Call non-emergency contact if: your temperature is above 101.5, your wound has increased redness, your wound has increased drainage and your wound pain has increased Follow-up/Referrals: Kade Figueroa MD [Primary Care Provider] - Diet: Carb Consistent or DM2 and Heart Healthy Addtl Attending Provider Instructions: SPECIAL CARE INSTRUCTIONS: Medications: * Continue to take your medications as directed. Incision/Puncture Site Care: * You will have an incision or puncture in each of your groins. Liquid glue will be used to seal your incisions/puncture site. This will lift off as the incisions/puncture sites heal. * If Liquid glue is not used, there will be small dressings covering your incisions. After you get home, you may remove the dressings and shower - allowing the warm soapy water to run over it. * Be sure to dry the sites well and keep them dry. * DO NOT SOAK IN A TUB/POOL/etc. UNTIL ALL SURGICAL SITES ARE HEALED. DO NOT REMOVE THE GLUE UNTIL THE INCISIONS HEAL. 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 * You may walk and go up and down steps. * Avoid excessive bending or movement at the level of the incisions or punctures. Risks and Possible Complications: * Infection/Drainage/Bleeding - Drainage or bleeding from the incisions/puncture site should be minimal. If you have excessive bleeding or drainage, call our office ([phone]) right away. * Pain/Numbness - You may experience some mild pain or soreness at your incision sites. You may also have some numbness around the incisions or into the insides of your thighs. Bruising is normal and should resolve within 2 weeks. * Changes in Appetite or Bowel Habits - Mostly related to anesthesia and pain medication, some patients have reported decreased appetite and/or problems with constipation. These symptoms usually improve over a few weeks. Remembering to take an [id number] stool softener, as directed, will help you to avoid constipation. Call our office and seek emergent treatment if you develop: * Fever or chills * Have a temperature greater than 101 degrees F * Any redness or purulent drainage from your incisions or punctures * Severe abdominal, chest or back pain SKIN IRRITATION: * You may experience some redness and/or swelling in the area where radiation was administered. If any skin irritation occurs, please contact your family physician. You will be receiving a call from the Vascular Surgery Nurse after you are discharged. FOLLOW UP VISIT: It is important for you to keep your follow up appointments with your medical provider. Keep any scheduled doctor appointments. Call [phone] to schedule a follow up appointment if one not already scheduled. Stand-Alone Forms: My [facility] [employer], Opioid Pain Management, Smoking Cessation Skilled Items Lines: None Urinary Catheter: No Medications and DC Order Prescriptions: New oxycodone-acetaminophen [Percocet] 5-325 mg tablet 1 tab PO Q8H PRN (Reason: pain) Qty: 7 RF: 0 Continued tamsulosin 0.4 mg capsule 0.4 mg PO BID RF: 0 simvastatin 40 mg tablet 40 mg PO QAM RF: 0 hydrocodone-acetaminophen 5-325 mg tablet 1 tab PO Q4H PRN (Reason: Pain) RF: 0 aspirin 81 mg Tablet,Delayed Release (Dr/Ec) 81 mg PO DAILY RF: 0 dimenhydrinate [Dramamine] 50 mg Tablet 50 mg PO DIRECTED PRN (Reason: Motion Sickness) RF: 0 alogliptin 12.5 mg Tablet 12.5 mg PO QAM RF: 0 empagliflozin 25 mg Tablet 25 mg PO QAM RF: 0 melatonin 3 mg Tablet 3 mg PO HS PRN (Reason: sleep) Qty: 10 RF: 0 acetaminophen 325 mg Tablet 650 mg PO Q4H PRN (Reason: Pain) RF: 0 sennosides-docusate sodium [Senna-Time S] 8.6-50 mg Tablet 1 tab-cap PO HS PRN (Reason: Constipation) RF: 0 pantoprazole 40 mg Tablet,Delayed Release (Dr/Ec) 40 mg PO HS RF: 0 ibuprofen 200 mg Tablet 600 mg PO Q8H PRN (Reason: Pain) RF: 0 docusate sodium 100 mg Capsule 100 mg PO BID RF: 0 lisinopril 5 mg Tablet 5 mg PO QAM RF: 0 oxybutynin chloride 5 mg Tablet 5 mg PO BID RF: 0 PNV comb no.58-iron bisgly-FA 10-400 mg-mcg Capsule 1 cap PO QAM RF: 0 Discharge Orders: Discharge Order (Routine); Ordered 09/30/21 Ordered By: Benny Oneill Admission Data Admit Date/Time: 09/28/21 08:53 Attending Provider: Benny Oneill Admit Provider: Benny Oneill Primary Care Provider: Kade Figueroa Other Providers: Farzad Hernández ; Jeffery Mcconnell ; Ritesh Joiner ; Luis F Cruz ; Amauri Mojica ; Joey Madden ; Lynda Madrigal ; Ramos Hopkins Other Interventions: Discharge Summary Assessment (RN) Last Done: 09/30/21 15:39
[2021-10-01] MEDS ORDERED: VISIPAQUE IV PRN (11:58)
== END 2021-09-30 16:54 | disposition home or self-care (01) | DRG 269 ==
LOC: ASU 07:43 → 1E 08:53 → 3N 09-29 15:42

== ENCOUNTER 2021-10-09 05:30 | Inpatient (IN) ==
[2021-10-09] MEDS ORDERED: SODIUM CHLORIDE 0.9% 1000ML 1,000 ML IV STA (06:48)
[2021-10-09] MEDS ORDERED: ONDANSETRON INJ 2 MG/ML 2 ML VIAL IV STA (06:50)
[2021-10-09] MEDS ORDERED: ACETAMINOPHEN 1000 MG/100 ML IV IV STA (06:50)
[2021-10-09] MEDS ORDERED: HYDROmorphone INJ 0.5 MG/0.5 ML SYR IV PRN (06:50)
[2021-10-09 07:43] LABS: Hematocrit (blood only) 33.1 % (42-52); Hemoglobin 10.4 g/dL (14.0-18.0); Mean Corpuscular Hgb Conc 31.4 g/dL (32-36); Mean Corpuscular Volume 105.1 fL (80-100); Mean Platelet Volume 10.4 fL (7.4-10.4); Platelet Count 117 K/uL (130-400); RDW Coefficient of Variation 15.7 % (11.5-14.5); RDW Standard Deviation 59.8 fL (36.4-46.3); Red Blood Count 3.15 M/uL (4.7-6.1); White Blood Count 2.79 K/uL (4.8-10.8)
[2021-10-09 08:03] LABS: Albumin Globulin Ratio 1.3 (0.9-2); Albumin Level 3.7 gm/dl (3.4-5.0); BUN Creatinine Ratio 17.3 (10-20); Bilirubin,Total 0.6 mg/dl (0.2-1.0); Calcium 9.1 mg/dl (8.5-10.1); Creatinine Clr Calc Pharmacy 82.2 ml/min; Est GFR (African American) 97.3 ml/min; Est GFR (Non-African American) 83.9 ml/min; Globulin 2.9 gm/dl (2.5-4.0); Potassium 3.6 mmol/L (3.5-5.1); Total Protein 6.6 gm/dl (6.0-8.3)
--- NOTE | 2021-10-09 08:12 | Emergency Department Note ---
Impression & Plan Acute sore throat, COVID-19 ED Provider Note INFORMANT: Patient ED PROVIDER(S): Nhan Tan MD CHIEF COMPLAINT: Sore throat PLAN: Disposition: Admitted Condition: Good Outpatient prescription management: none Referral: None MEDICAL DECISION MAKING: Patient presented because of sore throat inability to swallow. He was recently diagnosed with COVID-19 and started on treatment. He did require some mild supplemental oxygen. He was treated with Decadron as well as pain medication. He did feel better with that somewhat. Patient was sent for CT imaging after blood work revealed a pancytopenia. His ECG was unremarkable. CT imaging does show infectious changes around the supraglottic airway and vocal cords. Patient was given a dose of IV Unasyn. Bio fire testing only revealed COVID-19. Under the circumstances as the patient is requiring some supplemental oxygen and ca nnot swallow well further management in the hospital was discussed. Patient was in agreement. [facility] was evaluated in the ER and admitted for further management. Triage Nursing notes reviewed and agree them. Vital Signs: reviewed and remarkable for mild hypoxia Differential diagnosis: Viral syndrome, tonsillitis, streptococcal pharyngitis, mononucleosis, peritonsillar abscess, retropharyngeal abscess, otitis, pneumonia, influenza, as well as other pathologies. Diagnostics interpreted by me: ECG: Twelve-lead ECG reveals sinus rhythm with PACs at [address] elevation or depression. No PVCs. Normal axis. Cardiac Monitoring: Cardiac monitoring ordered by me: The patient was placed on continuous cardiac monitoring and observed. It revealed a sinus rhythm PACs at 71 bpm. Imaging studies: Chest x-ray revealed no acute findings. No pneumonia. Stable mediastinum. CT scan as noted above. I refer you to the EMR for further details. HPI: The patient is a 81year old male who presents to the Emergency Room with complaints of sore throat. This started yesterday and is worsening. Patient was diagnosed with COVID-19 2 days ago. He was started on Paxlovid. The patient also notes the following associated symptoms, fatigue, inability to swallow, weakness. The patient has tried some of his oxycodone forrelieving factors. Current pain is rated as 10/10. Patient underwent endovascular aortic aneurysm repair a week and a half ago by Dr. Oneill. Pt denies LOC, headache, fevers, chills, diaphoresis, visual changes, chest pain, breathing difficulties, nausea, vomiting, abdominal pain, back pain, melena, hematochezia, urinary symptoms, numbness, lymphadenopathy, rash, or other complaints. ROS: See above HPI for pertinent positives & negatives. A total of 10 systems reviewed and were otherwise negative. PAST MEDICAL HISTORY:See Below , hypertension PAST SURGICAL HISTORY:See Below, AAA repair FAMILY HISTORY:See Below SOCIAL HISTORY:See Below, resides at [facility] MEDICATIONS:See Below ALLERGIES:See Below VITALS:See Below PHYSICAL EXAMINATION: GENERAL: Awake but tired. Uncomfortable-appearing, in no distress HENT: Normocephalic, atraumatic. Oropharynx is dry mucous membranes and posterior mild erythema. Hoarse voice. EYES: Normal conjunctiva. Sclera non-icteric. NECK: Inspection normal. Non-tender. Supple. No nuchal rigidity. FROM. No masses. RESPIRATORY: Clear to auscultation. No wheezes. No rales. Normal respiratory effort. CARDIAC: Normal rate. Normal rhythm. No murmurs. No rubs. Extremities warm and well perfused. Pulses equal. No JVD. GI: Soft, non-distended. No tenderness to palpation. No rebound or guarding. No masses. RECTAL: Deferred. MUSCULOSKELETAL: Atraumatic. Chest examination reveals no tenderness. The back is symmetrical on inspection without obvious abnormality. There is no CVA tenderness to palpation. No joint edema. LOWER EXTREMITIES: Calves are equal size bilaterally and non-tender. No edema. No discoloration. NEURO: Normal sensorium. No sensory or motor deficits noted. SKIN: No rash or jaundice noted. Nhan Tan MD Past Med/Surg History Medical History AAA (abdominal aortic aneurysm) 5.4cm (per transferring facility documentation at [facility]) Aortic dissection, abdominal "CTA shows a short dissection through the mural thrombus" plan for outpatient repair 09/07/[address] 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, [facility], pt states dx during most recent [facility] hospitalization (not listed in [facility] hospitalization records), EF 50-55% on 07/2021 echo Diabetes Type 2 - NIDDM Encephalopathy due to metabolic factor or toxin post-op several years ago per pt, states symptoms resolved after 2 months u nder psychiatric care in [place] History of anesthesia reaction belligerent post-op per pt, denies combativeness; reports post-op psychosis x 2 months he feels is related to needing additional anesthesia for post-op hemorrhage and emergent surgery Hypercholesteremia Hypertension controlled, stable per pt Myopathy multifactorial myopathy Nausea and vomiting after administration of anesthetic agent Pancytopenia Prostate cancer mets to bone s/p radiation to lumbosacral spine and right hip 08/2019 Rhabdomyolysis treated [facility] inpatient 07/2021 Secondary carcinoma of bone Sleep apnea [facility] Surgical History History of colonoscopy History of hernia surgery x 4, twice d/t strangulation with resection of part of small intestine complicated by hemorrhage and post-op psychosis x 2 months in [place] per pt Family History Uncle Prostate cancer Grandfather Prostate cancer Social History Smoking Status: Former smoker Second Hand Exposure: No; Hx Alcohol Use: Yes Alcohol type: beer, wine and hard liquor Hx Substance Use: No Preferred Language: Azeri Communication Ability: Effective [place] Blocker Required: No Beliefs That Will Affect Care: None marital status: Current Living Situation: [facility] Current Living Situation Comment: [facility] Feels Safe at Home: Yes Assistive Devices: Walker Allergies Allergies Allergy/AdvReac Type Severity Reaction Status Date / Time meperidine Allergy Unknown Unknown Verified 09/28/21 08:10 morphine Allergy Unknown Unknown Verified 09/28/21 08:10 Home Meds Home Medications Medication Instructions Recorded Confirmed simvastatin 40 mg tablet 40 mg PO QAM 08/27/19 10/09/21 tamsulosin 0.4 mg capsule 0.4 mg PO BID cap 08/27/19 10/09/21 alogliptin 12.5 mg tablet 12.5 mg PO QAM 07/27/21 10/09/21 aspirin 81 mg tablet,delayed 81 mg PO DAILY 07/27/21 10/09/21 release dimenhydrinate 50 mg tablet 50 mg PO DIRECTED PRN 07/27/21 10/09/21 (Dramamine) empagliflozin 25 mg tablet 25 mg PO QAM 07/27/21 10/09/21 hydrocodone 5 mg-acetaminophen 325 1 tab PO Q4H PRN 07/27/21 10/09/21 mg tablet acetaminophen 325 mg tablet 650 mg PO Q4H PRN 08/30/21 10/09/21 docusate sodium 100 mg capsule 100 mg PO BID 08/30/21 10/09/21 ibuprofen 200 mg tablet 600 mg PO Q8H PRN 08/30/21 10/09/21 lisinopril 5 mg tablet 5 mg PO QAM 08/30/21 10/09/21 oxybutynin chloride 5 mg tablet 5 mg PO BID 08/30/21 10/09/21 pantoprazole 40 mg tablet,delayed 40 mg PO HS 08/30/21 10/09/21 release no.58-iron bisglycinate 1 cap PO QAM 08/30/21 10/09/21 10 mg iron-folic acid 400 mcg capsule sennosides 8.6 mg-docusate sodium 1 tab-cap PO HS PRN 08/30/21 10/09/21 50 mg tablet (Senna-Time S) nirmatrelvir 300 mg (150 mg x 1 tab PO DAILY 10/09/21 10/09/21 2)-ritonavir 100 mg tablet (EUA) (Paxlovid 300 mg () Previous Rx's Medication Instructions Recorded melatonin 3 mg tablet 3 mg PO HS PRN #10 tab 08/02/21 oxycodone-acetaminophen 5 mg-325 1 tab PO Q8H PRN #7 tab 09/30/21 mg tablet (Percocet) Results & Data (ED) Vital Signs Vital Signs - 24 hr 10/09/21 05:36 10/09/21 06:00 10/09/21 07:26 Temperature 37.2 C 36.9 C Temperature Source Temporal Artery Scan Oral Pulse Rate 87 78 Pulse Rate [Apical] 80 Pulse Rate from SpO2 Sensor 83 Pulse Rhythm [Apical] Regular Pulse Strength [Apical] Normal Respiratory Rate 18 18 16 Respiratory Effort / Characteristics Non-Labored Spontaneous Respiratory Depth Normal Respiratory Pattern Regular Blood Pressure 125/76 147/82 H Blood Pressure [Right Arm] 121/72 Blood Pressure Mean 92 103 Blood Pressure Mean [Right Arm] 88 Blood Pressure Position Sitting Blood Pressure Position [Right Arm] Lying Pulse Oximetry 92 91 93 Oxygen Delivery Method Room Air Room Air Room Air Oxygen Flow Rate Sepsis Recent Fever Within 48 Hours No Sepsis New/Unexplained Change in Mental Status N/A Sepsis Action Taken by Nursing No Action Required 10/09/21 07:30 10/09/21 08:00 10/09/21 08:28 Temperature Temperature Source Pulse Rate 92 H 73 Pulse Rate [Apical] Pulse Rate from SpO2 Sensor 75 71 Pulse Rhythm [Apical] Pulse Strength [Apical] Respiratory Rate 19 23 Respiratory Effort / Characteristics Respiratory Depth Respiratory Pattern Blood Pressure 116/74 121/74 Blood Pressure [Right Arm] Blood Pressure Mean 88 89 Blood Pressure Mean [Right Arm] Blood Pressure Position Blood Pressure Position [Right Arm] Pulse Oximetry 93 92 88 L Oxygen Delivery Method Room Air Room Air Room Air Oxygen Flow Rate Sepsis Recent Fever Within 48 Hours Sepsis New/Unexplained Change in Mental Status Sepsis Action Taken by Nursing 10/09/21 08:30 10/09/21 09:00 10/09/21 09:30 Temperature Temperature Source Pulse Rate 78 70 66 Pulse Rate [Apical] Pulse Rate from SpO2 Sensor 81 71 67 Pulse Rhythm [Apical] Pulse Strength [Apical] Respiratory Rate 18 21 24 Respiratory Effort / Characteristics Respiratory Depth Respiratory Pattern Blood Pressure 113/72 126/76 126/81 Blood Pressure [Right Arm] Blood Pressure Mean 85 92 96 Blood Pressure Mean [Right Arm] Blood Pressure Position Blood Pressure Position [Right Arm] Pulse Oximetry 93 98 93 Oxygen Delivery Method Nasal Cannula Nasal Cannula Nasal Cannula Oxygen Flow Rate 2 2 2 Sepsis Recent Fever Within 48 Hours Sepsis New/Unexplained Change in Mental Status Sepsis Action Taken by Nursing 10/09/21 10:00 10/09/21 10:30 10/09/21 11:00 Temperature Temperature Source Pulse Rate 64 71 68 Pulse Rate [Apical] Pulse Rate from SpO2 Sensor 61 70 68 Pulse Rhythm [Apical] Pulse Strength [Apical] Respiratory Rate 20 19 19 Respiratory Effort / Characteristics Respiratory Depth Respiratory Pattern Blood Pressure 133/84 129/88 129/84 Blood Pressure [Right Arm] Blood Pressure Mean 100 101 99 Blood Pressure Mean [Right Arm] Blood Pressure Position Blood Pressure Position [Right Arm] Pulse Oximetry 96 96 96 Oxygen Delivery Method Nasal Cannula Nasal Cannula Nasal Cannula Oxygen Flow Rate 2 2 2 Sepsis Recent Fever Within 48 Hours Sepsis New/Unexplained Change in Mental Status Sepsis Action Taken by Nursing 10/09/21 11:30 Temperature Temperature Source Pulse Rate 66 Pulse Rate [Apical] Pulse Rate from SpO2 Sensor 63 Pulse Rhythm [Apical] Pulse Strength [Apical] Respiratory Rate 17 Respiratory Effort / Characteristics Respiratory Depth Respiratory Pattern Blood Pressure 141/94 H Blood Pressure [Right Arm] Blood Pressure Mean 109 Blood Pressure Mean [Right Arm] Blood Pressure Position Blood Pressure Position [Right Arm] Pulse Oximetry 97 Oxygen Delivery Method Nasal Cannula Oxygen Flow Rate 2 Sepsis Recent Fever Within 48 Hours Sepsis New/Unexplained Change in Mental Status Sepsis Action Taken by Nursing Laboratory Data Result diagrams: 10/09/21 07:15 10/09/21 07:15 Lab Results 10/09/21 10/09/21 10/09/21 Range/Units 07:15 07:15 07:15 WBC 2.79 L (4.8-10.8) K/uL RBC 3.15 L (4.7-6.1) M/uL Hgb 10.4 L (14.0-18.0) g/dL Hct 33.1 L (42-52) % MCV 105.1 H (80-100) fL MCH 33.0 (25-34) pg MCHC 31.4 L (32-36) g/dL RDW Std Deviation 59.8 H (36.4-46.3) fL RDW Coeff of Krystyna 15.7 H (11.5-14.5) % Plt Count 117 L (130-400) K/uL MPV 10.4 (7.4-10.4) fL Neutrophils % (Manual) 66.3 % Lymphocytes % (Manual) 19.0 % Monocytes % (Manual) 12.9 % Basophils % (Manual) 0.9 % Myelocytes % (Man) 0.9 % Neutrophils # (Manual) 1.85 (1.4-6.5) K/uL Total Absolute Neuts 1.85 (1.4-6.5) K/uL Lymphocytes # (Manual) 0.53 L (1.2-3.4) K/uL Total Abs Lymphocytes 0.53 L (1.2-3.4) K/uL Monocytes # (Manual) 0.36 (0.11-0.59) K/uL Basophils # (Manual) 0.03 (0-0.2) K/uL Myelocytes # (Manual) 0.03 H (0-0) K/uL Sodium 139 (136-145) mmol/L Potassium 3.6 (3.5-5.1) mmol/L Chloride 107 (98-107) mmol/L Carbon Dioxide 25 (21-32) mmol/L Anion Gap 7 (3-11) BUN 14 (6-23) mg/dl Creatinine 0.81 (0.6-1.4) mg/dl Est Cr Clr Drug Dosing 82.2 ml/min Est GFR ( Amer) 97.3 ml/min Est GFR (Non-Af Amer) 83.9 ml/min BUN/Creatinine Ratio 17.3 (10-20) Glucose 120 H (70-99(Fasting)) mg/dl Calcium 9.1 (8.5-10.1) mg/dl Total Bilirubin 0.6 (0.2-1.0) mg/dl AST 18 (13-39) U/L ALT 11 (7-52) U/L Alkaline Phosphatase 81 (34-104) U/L Troponin I High Sens 7.0 (0-20) pg/ml Total Protein 6.6 (6.0-8.3) gm/dl Albumin 3.7 (3.4-5.0) gm/dl Globulin 2.9 (2.5-4.0) gm/dl Albumin/Globulin Ratio 1.3 (0.9-2) Administered Medications Ampicillin Sodium/Sulbactam Sodium 3,000 mg/ Sodium Chloride 108 mls @ 200 m ls/hr IV Q6H MIHCAEL; Protocol Stop: 10/16/21 12:59 Last Admin: 10/09/21 14:45 Dose: 200 mls/hr Documented by: [id number] Multi-Ingredient Mouthwash/Gargle (First - Mouthwash Blm 119 Ml) 5 ml PO Q6H MICHAEL Stop: 11/08/21 12:59 Last Admin: 10/09/21 14:33 Dose: 5 ml Documented by: [id number] Discontinued Medications Acetaminophen (Acetaminophen 1000 Mg/100 Ml Iv) 1,000 mg IV NOW STA Stop: 10/09/21 06:51 Last Admin: 10/09/21 07:32 Dose: 1,000 mg Documented by: [id number] Dexamethasone Sodium Phosphate (DexamethasonePf 10 Mg/Ml Vial) 10 mg IV NOW ONE Stop: 10/09/21 09:33 Last Admin: 10/09/21 09:41 Dose: 10 mg Documented by: [id number] Hydromorphone HCl (Hydromorphone Inj 0.5 Mg/0.5 Ml Syr) 0.25 mg IV Q15M PRN PRN Reason: Pain Stop: 10/23/21 06:49 Last Admin: 10/09/21 07:31 Dose: 0.25 mg Documented by: [id number] Sodium Chloride (Nss 1000ml) 1,000 mls @ 125 mls/hr IV .Q8H STA Stop: 10/09/21 14:47 Last Admin: 10/09/21 07:31 Dose: 125 mls/hr Documented by: [id number] Ampicillin Sodium/Sulbactam Sodium 3,000 mg/ Sodium Chloride 108 mls @ 200 mls/hr IV NOW STA; Protocol Stop: 10/09/21 10:56 Last Infusion: 10/09/21 11:32 Dose: 0 mls/hr Documented by: [id number] Admin: 10/09/21 10:59 Dose: 200 mls/hr Documented by: [id number] Ioversol (Optiray 320 100ml) 92 ml IV ONCE ONE Stop: 10/09/21 09:16 Last Admin: 10/09/21 09:16 Dose: 92 ml Documented by: [id number] Ondansetron HCl (Ondansetron Inj 2 Mg/Ml 2 Ml Vial) 4 mg IV NOW STA Stop: 10/09/21 06:51 Last Admin: 10/09/21 07:31 Dose: 4 mg Documented by: [id number] Imaging Data Radiologist's Impression: Chest X-Ray 10/09/21 06:48 XR chest 1V portable CLINICAL HISTORY: Fever, +covid COMPARISON STUDY: Chest CT July 27, 2021. Chest radiograph September 03, 2021. FINDINGS: No pneumothorax or pleural effusion is noted. Mild dilatation and tortuosity of the thoracic aorta is unchanged. Mild cardiomegaly is unchanged. There is no evidence for pulmonary edema. No consolidation is identified to suggest pneumonia. The appearance of the chest is unchanged. IMPRESSION: No acute cardiopulmonary findings. No change in appearance of the chest. ACT 112: Negative or not required by law. Electronically signed by: Chapito Jackson M.D. 10/09/2021 8:27 AM Soft Tissue Neck CT 10/09/21 06:48 CT OF THE NECK WITH IV CONTRAST CLINICAL HISTORY: unable to swallow, +covid COMPARISON STUDY: Cervical spine CT July 27, 2021. TECHNIQUE: Following IV administration of 92 mL of Optiray, helical axial images of the neck were obtained. Sagittal and coronal reconstructions were viewed. Automated exposure control was utilized for the study. A dose lowering technique was utilized adhering to the principles of ALARA. CT DOSE: 655.57 mGy.cm FINDINGS: Visualized portions of the intracranial contents are unremarkable. Mastoid air cells are clear. Wall thickening of the right maxillary sinus is chronic. Mild mucosal thickening with a small air-fluid level within the right maxillary sinus is similar to the cervical spine CT July 27, 2021. This is lik ugtierrez chronic. Moderate plaque within the bilateral carotid bifurcations is noted without significant stenosis. Parotid and submandibular glands are normal. No fluid collection within the neck to suggest an abscess is present. There is no soft tissue gas within neck. There are secretions within the hypopharynx. Epiglottis is within normal limits. Lingual tonsils are slightly prominent. There is thickening of the aryepiglottic folds, right greater left, with effacement of the right piriform sinus. Mild to moderate supraglottic airway narrowing is suspected although the glottis is closed and therefore suboptimally assessed. No prevertebral edema is present. There is no cervical lymphadenopathy. Emphysema is noted within the lung apices. Mild subpleural right upper lobe opacity favors scarring. There is also bronchiectasis. IMPRESSION: 1. Thickening of the aryepiglottic folds, right greater than left, with effacement of the right piriform sinus and mild to moderate supraglottic airway narrowing. The findings are likely infectious. A follow-up neck CT with contrast in 3 months to ensure resolution is recommended to exclude the less likely possibility of neoplastic process. No fluid collection to suggest abscess. Secretions within the hypopharynx. 2. Mild tonsillar enlargement. No peritonsillar abscess. ACT 112: Negative or not required by law. Electronically signed by: Chapito Jackson M.D. 10/09/2021 9:43 AM Discharge Plan Visit Data Chief Complaint: Sore Throat Stated Complaint: TROUBLE SWALLOWING,SORE THROAT - COVID+ ON THUR ED Provider: Nhan Tan Discharge Problem: Acute sore throat, COVID-19 Patient Disposition: Admitted As Inpatient Discharge Instructions Interventions: ED Discharge Assessment Last Done: 10/09/21 12:37
--- NOTE | 2021-10-09 08:29 | XRay Report ---
XR chest 1V portable CLINICAL HISTORY: Fever, +covid COMPARISON STUDY: Chest CT July 27, 2021. Chest radiograph September 03, 2021. FINDINGS: No pneumothorax or pleural effusion is noted. Mild dilatation and tortuosity of the thoraci c aorta is unchanged. Mild cardiomegaly is unchanged. There is no evidence for pulmonary edema. No co nsolidation is identified to suggest pneumonia. The appearance of the chest is unchanged. IMPRESSION: No acute cardiopulmonary findings. No change in appearance of the chest. ACT 112: Negative or not required by law. Electronically signed by: Chapito Jackson M.D. 10/09/2021 8:27 AM
[2021-10-09 08:35] LABS: ALC (manual) 0.53 K/uL (1.2-3.4); ANC (manual) 1.85 K/uL (1.4-6.5); Basophils # (manual) 0.03 K/uL (0-0.2); Basophils % (manual) 0.9 %; Lymphocytes # (manual) 0.53 K/uL (1.2-3.4); Monocytes # (manual) 0.36 K/uL (0.11-0.59); Monocytes % (manual) 12.9 %; Myelocytes # (manual) 0.03 K/uL (0-0); Myelocytes % (manual) 0.9 %; Neutrophils # (manual) 1.85 K/uL (1.4-6.5); Neutrophils % (manual) 66.3 %
[2021-10-09] MEDS ORDERED: OPTIRAY 320 100ml IV ONE (09:15)
[2021-10-09] MEDS ORDERED: dexAMETHasone**PF** 10 MG/ML VIAL IV ONE (09:32)
--- NOTE | 2021-10-09 09:45 | CT Scan Report ---
CT OF THE NECK WITH IV CONTRAST CLINICAL HISTORY: unable to swallow, +covid COMPARISON STUDY: Cervical spine CT July 27, 2021. TECHNIQUE: Following IV administration of 92 mL of Optiray, helical axial images of the neck were ob tained. Sagittal and coronal reconstructions were viewed. Automated exposure control was utilized f or the study. A dose lowering technique was utilized adhering to the principles of ALARA. CT DOSE: 655.57 mGy.cm FINDINGS: Visualized portions of the intracranial contents are unremarkable. Mastoid air cells are c lear. Wall thickening of the right maxillary sinus is chronic. Mild mucosal thickening with a small a ir-fluid level within the right maxillary sinus is similar to the cervical spine CT July 27, 2021. Th is is likely chronic. Moderate plaque within the bilateral carotid bifurcations is noted without sign ificant stenosis. Parotid and submandibular glands are normal. No fluid collection within the neck to suggest an abscess is present. There is no soft tissue gas within neck. There are secretions within the hypopharynx. Epiglottis is within normal limits. Lingual tonsils are slightly prominent. There is thickening of the aryepiglottic folds, right greater left, with effacement of the right piriform sin us. Mild to moderate supraglottic airway narrowing is suspected although the glottis is closed and th erefore suboptimally assessed. No prevertebral edema is present. There is no cervical lymphadenopathy . Emphysema is noted within the lung apices. Mild subpleural right upper lobe opacity favors scarring . There is also bronchiectasis. IMPRESSION: 1. Thickening of the aryepiglottic folds, right greater than left, with effacement of the right pirif orm sinus and mild to moderate supraglottic airway narrowing. The findings are likely infectious. A f ollow-up neck CT with contrast in 3 months to ensure resolution is recommended to exclude the less li margarette possibility of neoplastic process. No fluid collection to suggest abscess. Secretions within the hypopharynx. 2. Mild tonsillar enlargement. No peritonsillar abscess. ACT 112: Negative or not required by law. Electronically signed by: Chapito Jackson M.D. 10/09/2021 9:43 AM
[2021-10-09] MEDS ORDERED: AMPICILLIN/SULBACTAM SOD 3,000 MG in 0.9 % SODIUM CHLORIDE 100 ML IV STA (10:24)
[2021-10-09 11:40] LABS: Adenovirus PCR Not Detected (NotDetected); Bordetella parapertussis PCR Not Detected (NotDetected); Bordetella pertussis PCR Not Detected (NotDetected); Chlamydia pneumoniae PCR Not Detected (NotDetected); Coronavirus 229E PCR Not Detected (NotDetected); Coronavirus HKU1 PCR Not Detected (NotDetected); Coronavirus NL63 PCR Not Detected (NotDetected); Coronavirus OC43PCR Not Detected (NotDetected); Human Metapneumovirus PCR Not Detected (NotDetected); Influenza A PCR Not Detected (NotDetected); Influenza B PCR Not Detected (NotDetected); Mycoplasma pneumoniae PCR Not Detected (NotDetected); Parainfluenza Virus 1 PCR Not Detected (NotDetected); Parainfluenza Virus 2 PCR Not Detected (NotDetected); Parainfluenza Virus 3 PCR Not Detected (NotDetected); Parainfluenza Virus 4 PCR Not Detected (NotDetected); Respiratory Syncytial VirusPCR Not Detected (NotDetected); Rhinovirus/Enterovirus PCR Not Detected (NotDetected)
[2021-10-09 11:49] LABS: Coronavirus CoV-2 (COVID19)PCR DETECTED (NotDetected)
--- NOTE | 2021-10-09 11:55 | History & Physical Report ---
Date of Service October 09, 2021 Assessment & Plan (1) Acute sore throat: Plan: Patient presents with significant pain and CT evidence of narrowing of his airway. Concern for tracheobronchitis. Currently thrush infection could also cause irritation there. Patient was started on ampicillin sulbactam will be maintained on this with additional Diflucan ordered. Patient be in a monitored setting to watch for airway compromise. Patient given 10 mg dexamethasone in the ER will be continued at 6 mg a day to help with airway inflammation (2) COVID-19: Plan: Reportedly diagnosed as an outpatient on October 07. Currently without significant pulmonary symptoms or hypoxia. On Paxlovid although does report it is underdosed for typical will continue to use this medication as the patient can supply it Patient was started on dexamethasone for his airway he will be maintained on this as it may also benefit if he has any inflammatory spots from COVID (3) BPH with elevated PSA: Plan: Patient has a history of prostate cancer with bony metastasis, maintained on tamsulosin and oxybutynin Patient previous had radiation therapy to his lower back and hip which he relates is from bleeding and passes from his prostate cancer. With his escalation of some lower back pain we will do plain films to start (4) HTN (hypertension): Plan: Takes lisinopril for blood pressure control this will be continued (5) Diabetes: Plan: Please type II diabetic remaining on all alogliptin and empagliflozin level very low sliding scale additional to a carbohydrate sensitive diet. Last hemoglobin A1c in August was 7.3 (6) Hypercholesteremia: Plan: Continues on Zocor Plan: DVT prevention is SCDs as he is an observation if he remains or longer transition to enoxaparin will be warranted given his of history of active malignancy Patient is a full code History of Present Illness Primary Care Provider: Ian Alonso PA-C 81-year-old male with a 2-day history of diagnosis of COVID on Paxlovid as an outpatient. Also recently discharged on October 01 after endovascular aortic aneurysm repair. Presents with escalation of sore throat difficulty swallowing. Significant pain rated 10 out of 10 has previously had oxycodone for his postoperative pain this did not help his discomfort. Patient has a history of metastatic prostate cancer and diabetes In the emergency department patient had a CT scan of the neck soft tissues showing thickening of the aryepiglottic folds right greater than left with a facial of the right piriform sinus mild to moderate supraglottic airway narrowi ng findings look to be infectious Allergies Allergy/AdvReac Type Severity Reaction Status Date / Time meperidine Allergy Unknown Unknown Verified 09/28/21 08:10 morphine Allergy Unknown Unknown Verified 09/28/21 08:10 Home Medications Medication Instructions Recorded Confirmed Type simvastatin 40 mg tablet 40 mg PO QAM 08/27/19 10/09/21 History tamsulosin 0.4 mg capsule 0.4 mg PO BID cap 08/27/19 10/09/21 History alogliptin 12.5 mg tablet 12.5 mg PO QAM 07/27/21 10/09/21 History aspirin 81 mg tablet,delayed 81 mg PO DAILY 07/27/21 10/09/21 History release dimenhydrinate 50 mg tablet 50 mg PO DIRECTED PRN 07/27/21 10/09/21 History (Dramamine) empagliflozin 25 mg tablet 25 mg PO QAM 07/27/21 10/09/21 History hydrocodone 5 mg-acetaminophen 325 1 tab PO Q4H PRN 07/27/21 10/09/21 History mg tablet melatonin 3 mg tablet 3 mg PO HS PRN #10 tab 08/02/21 10/09/21 Rx acetaminophen 325 mg tablet 650 mg PO Q4H PRN 08/30/21 10/09/21 History docusate sodium 100 mg capsule 100 mg PO BID 08/30/21 10/09/21 History ibuprofen 200 mg tablet 600 mg PO Q8H PRN 08/30/21 10/09/21 History lisinopril 5 mg tablet 5 mg PO QAM 08/30/21 10/09/21 History oxybutynin chloride 5 mg tablet 5 mg PO BID 08/30/21 10/09/21 History pantoprazole 40 mg tablet,delayed 40 mg PO HS 08/30/21 10/09/21 History release no.58-iron bisglycinate 1 cap PO QAM 08/30/21 10/09/21 History 10 mg iron-folic acid 400 mcg capsule sennosides 8.6 mg-docusate sodium 1 tab-cap PO HS PRN 08/30/21 10/09/21 History 50 mg tablet (Senna-Time S) oxycodone-acetaminophen 5 mg-325 1 tab PO Q8H PRN #7 tab 09/30/21 10/09/21 Rx mg tablet (Percocet) nirmatrelvir 300 mg (150 mg x 1 tab PO DAILY 10/09/21 10/09/21 History 2)-ritonavir 100 mg tablet (EUA) (Paxlovid 300 mg () Past Med/Surg History Medical History AAA (abdominal aortic aneurysm) 5.4cm (per transferring facility documentation at [facility]) Aortic dissection, abdominal "CTA shows a short dissection through the mural thrombus" plan for outpatient repair 09/07/[address] Oneill after consultation 07/28/2021 [facility] hospitalization for UTI, rhabdomyolysis BPH with elevated PSA Congestive heart failure per PAT global marketing coordinator call, not listed in [place] records, pt states dx during most recent [facility] hospitalization (not listed in [facility] hospitalization records), EF 50-55% on 07/2021 echo Diabetes Type 2 - NIDDM Encephalopathy due to metabolic factor or toxin post-op several years ago per pt, states symptoms resolved after 2 months under psychiatric care in [place] History of anesthesia reaction belligerent post-op per pt, denies combativeness; reports post-op psychosis x 2 months he feels is related to needing additional anesthesia for post-op hemorrhage and emergent surgery Hypercholesteremia Hypertension controlled, stable per pt Myopathy multifactorial myopathy Nausea and vomiting after administration of anesthetic agent Pancytopenia Prostate cancer mets to bone s/p radiation to lumbosacral spine and right hip 08/[address] 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 Beliefs That Will Affect Care: None marital status: Current Living Situation: Custodial Current Living Situation Comment: [facility] Feels Safe at Home: Yes Assistive Devices: Cane Review of Systems Review of Systems: Mild distress and fatigue no headache, no visual changes no speech or swallowing issues, significant sore throat and hoarse voice no chest pain, pressure or palpitations no shortness of breath, cough or wheezes no abdominal pain, nausea or vomiting, diarrhea or constipation no dysuria, hematuria or frequency no focal joint pain or swelling has some low back pain, no CVA tenderness or radicular pain no bruising, bleeding or rashes no focal signs of weakness or numbness or altered sensation no complaints of anxiety or depression.. Physical Exam Physical Exam: The patient appeared well nourished and normally developed. Vital signs as documented. Head exam is normocephalic atraumatic oral pharynx is only with mild posterior pharynx erythema Neck is without JVD, thyromegaly, or carotid bruits. Lungs are clear to auscultation, no focal loss of breath sounds Cardiac exam, Rhythm is regular.. No murmurs, rubs or gallops. Abdominal exam reveals normal bowel sounds, soft non tender, no masses Extremities are nonedematous and both pedal pulses are present Neurologic exam is alert and oriented, no focal loss of strength or sensation Skin is without bruises or rashes Psychologically is without concerns for anxiety or depression.. Results & Data Results & [facility] ([facility]) Vital Signs (Past 12 Hours) Vital Signs Temp Pulse Pulse Resp BP BP Pulse Ox 10/09/21 10:00 64 20 133/84 96 10/09/21 09:30 66 24 126/81 93 10/09/21 09:00 70 21 126/76 98 10/09/21 08:30 78 18 113/72 93 10/09/21 08:28 88 L 10/09/21 08:00 73 23 121/74 92 10/09/21 07:30 92 H 19 116/74 93 10/09/21 07:26 78 16 147/82 H 93 10/09/21 06:00 98.4 F 80 18 121/72 91 10/09/21 05:36 99.0 F 87 18 125/76 92 Diagnostic Findings Chest X-Ray 10/09/21 06:48 XR chest 1V portable CLINICAL HISTORY: Fever, +covid COMPARISON STUDY: Chest CT July 27, 2021. Chest radiograph September 03, 2021. FINDINGS: No pneumothorax or pleural effusion is noted. Mild dilatation and tortuosity of the thoracic aorta is unchanged. Mild cardiomegaly is unchanged. There is no evidence for pulmonary edema. No consolidation is identified to suggest pneumonia. The appearance of the chest is unchanged. IMPRESSION: No acute cardiopulmonary findings. No change in appearance of the chest. ACT 112: Negative or not required by law. Electronically signed by: Chapito Jackson M.D. 10/09/2021 8:27 AM Soft Tissue Neck CT 10/09/21 06:48 CT OF THE NECK WITH IV CONTRAST CLINICAL HISTORY: unable to swallow, +covid COMPARISON STUDY: Cervical spine CT July 27, 2021. TECHNIQUE: Following IV administration of 92 mL of Optiray, helical axial images of the neck were obtained. Sagittal and coronal reconstructions were viewed. Automated exposure control was utilized for the study. A dose lowering technique was utilized adhering to the principles of ALARA. CT DOSE: 655.57 mGy.cm FINDINGS: Visualized portions of the intracranial contents are unremarkable. Mastoid air cells are clear. Wall thickening of the right maxillary sinus is chronic. Mild mucosal thickening with a small air-fluid level within the right maxillary sinus is similar to the cervical spine CT July 27, 2021. This is likely chronic. Moderate plaque within the bilateral carotid bifurcations is noted without significant stenosis. Parotid and submandibular glands are normal. No fluid collection within the neck to suggest an abscess is present. There is no soft tissue gas within neck. There are secretions within the hypopharynx. Epiglottis is within normal limits. Lingual tonsils are slightly prominent. There is thickening of the aryepiglottic folds, right greater left, with effacement of the right piriform sinus. Mild to moderate supraglottic airway narrowing is suspected although the glottis is closed and therefore suboptimally assessed. No prevertebral edema is present. There is no cervical lymphadenopathy. Emphysema is noted within the lung apices. Mild subpleural right upper lobe opacity favors scarring. There is also bronchiectasis. IMPRESSION: 1. Thickening of the aryepiglottic folds, right greater than left, with effacement of the right piriform sinus and mild to moderate supraglottic airway narrowing. The findings are likely infectious. A follow-up neck CT with contrast in 3 months to ensure resolution is recommended to exclude the less likely possibility of neoplastic process. No fluid collection to suggest abscess. Secretions within the hypopharynx. 2. Mild tonsillar enlargement. No peritonsillar abscess. ACT 112: Negative or not required by law. Electronically signed by: Chapito Jackson M.D. 10/09/2021 9:43 AM ECG Additional Comments: Normal sinus rhythm with PACs Code Status & VTE Plan VTE Prophylaxis Plan VTE Prophylaxis will be ordered: Yes PG Care Time/CCT Total # of Minutes Spent Total Time Spent with Patient: Total time spent is greater than 50% in coordination of care (as documented) at patient's floor/unit and/or counseling patient: Coding Level of Care Code INT OBSERVATION CARE 70M LVL 3 Diagnoses HTN (hypertension) I10 Diabetes E11.9 Hypercholesteremia E78.00 BPH with elevated PSA N40.0; R97.20 Acute sore throat J02.9 COVID-19 U07.1
[2021-10-09] MEDS ORDERED: GLUCOSE 10 TABS/TUBE PO PRN (13:00)
[2021-10-09] MEDS ORDERED: MoRPHine SULFATE 2 MG/ML CARP IV PRN (13:00)
[2021-10-09] MEDS ORDERED: IBUPROFEN 600 MG TAB PO PRN (13:00)
[2021-10-09] MEDS ORDERED: ACETAMINOPHEN 325 MG TAB PO PRN (13:00)
[2021-10-09] MEDS ORDERED: ONDANSETRON INJ 2 MG/ML 2 ML VIAL IV PRN (13:00)
[2021-10-09] MEDS ORDERED: CARBOHYDRATES FOR HYPOGLYCEMIA PO PRN (13:00)
[2021-10-09] MEDS ORDERED: GLUCOSE 40% GEL 15 GM TUBE PO PRN (13:00)
[2021-10-09] MEDS ORDERED: ACETAMINOPHEN 500 MG TAB PO PRN (13:00)
[2021-10-09] MEDS ORDERED: MoRPHine SULFATE 4 MG/ML 1 ML CARP\\VIAL IV PRN (13:00)
[2021-10-09] MEDS ORDERED: GLUCAGON FOR INJ 1 MG VIAL SQ PRN (13:00)
[2021-10-09] MEDS ORDERED: DEXTROSE 50% 50 ML SYRINGE IV PRN (13:00)
[2021-10-09] MEDS ORDERED: ALUMINUM/MAGNESIUM SUSP 30 ML UDC PO PRN (13:00)
[2021-10-09] MEDS ORDERED: MELATONIN 3 MG TAB PO PRN (13:00)
[2021-10-09] MEDS ORDERED: DOCUSATE SODIUM/SENNA 50/8.6MG TAB PO PRN (13:00)
--- NOTE | 2021-10-09 13:25 | Electrocardiogram Report ---
Test Reason : Blood Pressure : / mmHG Vent. Rate : 077 BPM Atrial Rate : 077 BPM P-R Int : 150 ms QRS Dur : 082 ms QT Int : 378 ms P-R-T Axes : 029 -11 008 degrees QTc Int : 427 ms Sinus rhythm with Premature atrial complexes Otherwise normal ECG When compared with ECG of 03-SEP-2021 11:28, Premature atrial complexes are now Present Confirmed by Joseluis Mariee ([id number]) on 10/09/2021 1:24:45 PM Referred By: REFERRED SELF Confirmed By:Joseluis Mariee
[2021-10-09] MEDS: FIRST - Mouthwash BLM 119 ML PO SCH ×2 (14:33→20:31)
[2021-10-09] MEDS: AMPICILLIN/SULBACTAM SOD 3,000 MG in 0.9 % SODIUM CHLORIDE 100 ML IV SCH ×2 (14:45→20:18)
--- NOTE | 2021-10-09 16:11 | Hospitalist Progress Note ---
Date of Service October 09, 2021 Assessment & Plan (1) Acute sore throat: Plan: Patient presents with significant pain and CT evidence of narrowing of his airway. Concern for tracheobronchitis. Currently thrush infection could also cause irritation there. Patient was started on ampicillin sulbactam will be maintained on this with additional Diflucan ordered. Patient be in a monitored setting to watch for airway compromise. Patient given 10 mg dexamethasone in the ER will be continued at 6 mg a day to help with airway inflammation (2) COVID-19: Plan: Reportedly diagnosed as an outpatient on October 07. Currently without significant pulmonary symptoms or hypoxia. On Paxlovid although does report it is underdosed for typical will continue to use this medication as the patient can supply it Patient was started on dexamethasone for his airway he will be maintained on this as it may also benefit if he has any inflammatory spots from COVID (3) BPH with elevated PSA: Plan: Patient has a history of prostate cancer with bony metastasis, maintained on tamsulosin and oxybutynin Patient previous had radiation therapy to his lower back and hip which he relates is from bleeding and passes from his prostate cancer. With his escalation of some lower back pain we will do plain films to start (4) HTN (hypertension): Plan: Takes lisinopril for blood pressure control this will be continued (5) Diabetes: Plan: Please type II diabetic remaining on all alogliptin and empagliflozin level very low sliding scale additional to a carbohydrate sensitive diet. Last hemoglobin A1c in August was 7.3 (6) Hypercholesteremia: Plan: Continues on Zocor (7) Pancytopenia: Plan: chronic for years, prevous work up with hematology, now maybe influenced by covid infection Plan: DVT prevention is SCDs as he is an observation if he remains or longer transition to enoxaparin will be warranted given his of history of active malignancy Patient is a full code Admission and Anticipated Discharge Date Admission Date: October 09, 2021 Results & Data Results & Data ([facility]) Vital Signs (Past 12 Hours) Vital Signs Temp Pulse Pulse Resp BP BP Pulse Ox 10/09/21 13:00 98.8 F 71 20 142/84 H 92 10/09/21 12:00 73 17 130/98 92 10/09/21 11:30 66 17 141/94 H 97 10/09/21 11:00 68 19 129/84 96 05/21/22 10:30 71 19 129/88 96 10/09/21 10:00 64 20 133/84 96 10/09/21 09:30 66 24 126/81 93 10/09/21 09:00 70 21 126/76 98 10/09/21 08:30 78 18 113/72 93 10/09/21 08:28 88 L 10/09/21 08:00 73 23 121/74 92 10/09/21 07:30 92 H 19 116/74 93 10/09/21 07:26 78 16 147/82 H 93 10/09/21 06:00 98.4 F 80 18 121/72 91 10/09/21 05:36 99.0 F 87 18 125/76 92 PG Care Time/CCT Total # of Minutes Spent Total Time Spent with Patient: Total time spent is greater than 50% in coordination of care (as documented) at patient's floor/unit and/or counseling patient: Coding Level of Care Code None Diagnoses Acute sore throat J02.9 COVID-19 U07.1 BPH with elevated PSA N40.0; R97.20 HTN (hypertension) I10 Diabetes E11.9 Hypercholesteremia E78.00 Pancytopenia D61.818
[2021-10-09] MEDS: INSULIN ASPART PER UNIT SC SCH ×2 (17:09→20:47)
--- NOTE | 2021-10-09 18:57 | XRay Report ---
XR lumbar spine 2-3V CLINICAL HISTORY: Evaluate for bony metastases, h/o prostate cancer COMPARISON STUDY: Lumbar spine MRI August 09, 2019. Lumbar spine CT July 27, 2021. FINDINGS: Endovascular aortoiliac stent graft is incidentally noted. Multiple sclerotic lower thoraci c and lumbar spine lesions was shown on CT of July 27, 2021. These are not well visualized by radiogr aphy. Old L5 compression deformity is noted. There is a moderate L1 compression deformity which is ne w since prior CT. Slight loss of height of the superior endplates of L3 and L4 also appears new since prior exam. Severe multilevel facet arthrosis is present. IMPRESSION: 1. Multiple lower thoracic and lumbar spine skeletal lesions, better depicted on prior CT and MRI. Th luis represent metastases. These are not well-visualized by radiography. 2. Interval development of several lumbar spine fractures since CT of July 27, 2021, as described abo ve. ACT 112: Negative or not required by law. Electronically signed by: Chapito Jackson M.D. 10/09/2021 6:54 PM
[2021-10-09] MEDS: DOCUSATE SODIUM 100 MG CAP PO SCH (20:37)
[2021-10-09] MEDS: OXYBUTYNIN CHLORIDE 5 MG TAB PO SCH (20:38)
[2021-10-09] MEDS: PANTOprazole 40 MG TAB PO SCH (20:38)
[2021-10-09] MEDS: TAMSULOSIN HCL 0.4 MG CAP PO SCH (20:39)
[2021-10-09] MEDS: NIRMATRELVIR/RITONAVIR 1 EA TAB PO SCH (20:47)
[2021-10-09] MEDS ORDERED: TAMSULOSIN HCL 0.4 MG CAP PO SCH (21:00)
[2021-10-09] MEDS: FLUCONAZOLE 100 MG/50 ML BAG IV SCH (21:08)
[2021-10-10] MEDS: AMPICILLIN/SULBACTAM SOD 3,000 MG in 0.9 % SODIUM CHLORIDE 100 ML IV SCH ×4 (01:27→19:54)
[2021-10-10] MEDS: FIRST - Mouthwash BLM 119 ML PO SCH ×4 (01:28→19:54)
[2021-10-10] MEDS: oxyCODONE HCL IR 5 MG TAB (IMMEDIATE RELEASE) PO PRN ×2 (06:25→20:55)
--- NOTE | 2021-10-10 07:51 | Hospitalist Progress Note ---
Date of Service October 10, 2021 Assessment & Plan (1) Acute sore throat: Plan: Patient presents with significant pain and CT evidence of narrowing of his airway. Concern for tracheobronchitis. Currently thrush infection could also cause irritation there. Patient was started on ampicillin sulbactam will be maintained on this with additional Diflucan ordered. Patient given 10 mg dexamethasone in the ER will be continued at 6 mg a day to help with airway inflammation try some carafate suspension to help sooth throat (2) COVID-19: Plan: Reportedly diagnosed as an outpatient on October 07. Currently without significant pulmonary symptoms or hypoxia. On Paxlovid although does report it is underdosed for typical will continue to use this medication as the patient can supply it Patient was started on dexamethasone for his airway he will be maintained on this as it may also benefit if he has any inflammatory spots from COVID (3) BPH with elevated PSA: Plan: Patient has a history of prostate cancer with bony metastasis, maintained on tamsulosin and oxybutynin Patient previous had radiation therapy to his lower back and hip which he relates is from bleeding and passes from his prostate cancer. With his escalation of some lower back pain plain films 10/09/21 Multiple lower thoracic and lumbar spine skeletal lesions, better depicted on prior CT and MRI. These represent metastases. These are not well- visualized by radiography. Interval development of several lumbar spine fractures since CT of July 27, 2021, as described above. on pain control and will check psa and recommend follow up with urology (4) HTN (hypertension): Plan: Takes lisinopril for blood pressure control this will be continued (5) Diabetes: Plan: Please type II diabetic remaining on all alogliptin and empagliflozin level very low sliding scale additional to a carbohydrate sensitive diet. Last hemoglobin A1c in August was 7.3 (6) Hypercholesteremia: Plan: Continues on Zocor (7) Pancytopenia: Plan: chronic for years, prevous work up with hematology, now maybe influenced by covid infection, platelet count improving (8) Lumbar compression fracture: Plan: depicted on plain films new from august 10, localized pain control, maybe metastatic disease Plan: DVT enoxaparin will be warranted given his of history of active malignancy Patient is a full code Admission and Anticipated Discharge Date Admission Date: October 09, 2021 Subjective objectively sounds better, pt claims is no better, states magic swizzle causes increased pain. 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 Physical Exam Physical Exam: The patient appeared well nourished and normally developed. Vital signs as documented. Head exam is normocephalic atraumatic oral pharynx is only with mild posterior pharynx erythema Neck is without JVD, thyromegaly, or carotid bruits. Lungs are clear to auscultation, no focal loss of breath sounds Cardiac exam, Rhythm is regular.. No murmurs, rubs or gallops. Abdominal exam reveals normal bowel sounds, soft non tender, no masses Extremities are nonedematous and both pedal pulses are present Neurologic exam is alert and oriented, no focal loss of strength or sensation Skin is without bruises or rashes Psychologically is without concerns for anxiety or depression.. Results & Data Results & Data ([facility]) Vital Signs (Past 12 Hours) Vital Signs Temp Pulse Pulse Resp BP Pulse Ox 10/10/21 04:45 98.6 F 52 L 18 127/70 98 10/09/21 23:42 70 10/09/21 23:20 97.9 F 76 18 155/61 H 94 PG Care Time/CCT Total # of Minutes Spent Total Time Spent with Patient: Total time spent is greater than 50% in coordination of care (as documented) at patient's floor/unit and/or counseling patient: Coding Level of Care Code 16104 Subseq Hosp Care Lvl 3 Diagnoses Acute sore throat J02.9 COVID-19 U07.1 BPH with elevated PSA N40.0; R97.20 HTN (hypertension) I10 Diabetes E11.9 Hypercholesteremia E78.00 Pancytopenia D61.818 Lumbar compression fracture S32.000A
[2021-10-10] MEDS: dexAMETHasone 6 MG in SYRINGE 0 ML IV SCH (08:35)
[2021-10-10] MEDS: FLUCONAZOLE 100 MG/50 ML BAG IV SCH ×2 (08:35→20:48)
[2021-10-10] MEDS: OXYBUTYNIN CHLORIDE 5 MG TAB PO SCH ×2 (08:35→20:53)
[2021-10-10] MEDS: DOCUSATE SODIUM 100 MG CAP PO SCH ×2 (08:35→20:51)
[2021-10-10] MEDS: lisinopril 5 MG TAB PO SCH (08:35)
[2021-10-10] MEDS: ASPIRIN 81 MG ECTAB PO SCH (08:36)
[2021-10-10] MEDS: NIRMATRELVIR/RITONAVIR 1 EA TAB PO SCH ×2 (08:36→20:53)
[2021-10-10 08:50] LABS: Hematocrit (blood only) 33.2 % (42-52); Hemoglobin 10.9 g/dL (14.0-18.0); Mean Corpuscular Hemoglobin 34.2 pg (25-34); Mean Corpuscular Hgb Conc 32.8 g/dL (32-36); Mean Corpuscular Volume 104.1 fL (80-100); Mean Platelet Volume 10.6 fL (7.4-10.4); Platelet Count 133 K/uL (130-400); RDW Coefficient of Variation 14.9 % (11.5-14.5); RDW Standard Deviation 56.5 fL (36.4-46.3); Red Blood Count 3.19 M/uL (4.7-6.1)
[2021-10-10] MEDS ORDERED: SIMVASTATIN 40 MG TAB PO SCH (09:00)
[2021-10-10 09:05] LABS: BUN Creatinine Ratio 28.6 (10-20); Calcium 9.5 mg/dl (8.5-10.1); Creatinine Clr Calc Pharmacy 95.1 ml/min; Est GFR (African American) 103.3 ml/min; Est GFR (Non-African American) 89.1 ml/min; Potassium 4.1 mmol/L (3.5-5.1)
[2021-10-10] MEDS: INSULIN ASPART PER UNIT SC SCH ×4 (09:10→21:35)
[2021-10-10] MEDS: SUCRALFATE 1 GM/10 ML UDC PO SCH ×4 (16:34→20:59)
[2021-10-10] MEDS: INSULIN GLARGINE SOLOSTAR 100 UNITS/ML 3 ML PEN SC SCH (18:02)
[2021-10-10] MEDS: PANTOprazole 40 MG TAB PO SCH (20:53)
[2021-10-10] MEDS: TAMSULOSIN HCL 0.4 MG CAP PO SCH (20:53)
[2021-10-11] MEDS: AMPICILLIN/SULBACTAM SOD 3,000 MG in 0.9 % SODIUM CHLORIDE 100 ML IV SCH ×4 (00:37→18:18)
[2021-10-11] MEDS: FIRST - Mouthwash BLM 119 ML PO SCH ×4 (00:37→18:19)
[2021-10-11] MEDS: oxyCODONE HCL IR 5 MG TAB (IMMEDIATE RELEASE) PO PRN ×2 (02:56→21:51)
[2021-10-11 08:18] LABS: Hematocrit (blood only) 32.1 % (42-52); Hemoglobin 10.5 g/dL (14.0-18.0); Mean Corpuscular Hemoglobin 33.8 pg (25-34); Mean Corpuscular Hgb Conc 32.7 g/dL (32-36); Mean Corpuscular Volume 103.2 fL (80-100); Mean Platelet Volume 10.7 fL (7.4-10.4); Platelet Count 139 K/uL (130-400); RDW Coefficient of Variation 14.7 % (11.5-14.5); RDW Standard Deviation 55.6 fL (36.4-46.3); Red Blood Count 3.11 M/uL (4.7-6.1); White Blood Count 3.55 K/uL (4.8-10.8)
[2021-10-11 08:23] LABS: Estimated Average Glucose 151 mg/dl; Hemoglobin A1C 6.9 % (4.5-5.6)
[2021-10-11 08:38] LABS: BUN Creatinine Ratio 34.3 (10-20); Calcium 9.9 mg/dl (8.5-10.1); Creatinine Clr Calc Pharmacy 99.4 ml/min; Est GFR (African American) 105.2 ml/min; Est GFR (Non-African American) 90.8 ml/min; Potassium 3.9 mmol/L (3.5-5.1)
[2021-10-11] MEDS: OXYBUTYNIN CHLORIDE 5 MG TAB PO SCH ×2 (08:40→20:41)
[2021-10-11] MEDS: ASPIRIN 81 MG ECTAB PO SCH (08:41)
[2021-10-11] MEDS: lisinopril 5 MG TAB PO SCH (08:41)
[2021-10-11] MEDS: FLUCONAZOLE 100 MG/50 ML BAG IV SCH ×2 (08:42→20:38)
[2021-10-11] MEDS: dexAMETHasone 6 MG in SYRINGE 0 ML IV SCH (08:42)
[2021-10-11] MEDS: SUCRALFATE 1 GM/10 ML UDC PO SCH ×4 (08:42→20:41)
[2021-10-11] MEDS: ENOXAPARIN INJ 40 MG/0.4 ML SYR SQ SCH (08:42)
[2021-10-11] MEDS: NIRMATRELVIR/RITONAVIR 1 EA TAB PO SCH ×2 (08:43→20:43)
[2021-10-11] MEDS: INSULIN ASPART PER UNIT SC SCH ×4 (09:05→21:50)
[2021-10-11] MEDS: INSULIN GLARGINE SOLOSTAR 100 UNITS/ML 3 ML PEN SC SCH ×2 (09:06→21:50)
[2021-10-11] MEDS: DOCUSATE SODIUM 100 MG CAP PO SCH ×2 (10:17→20:42)
--- NOTE | 2021-10-11 18:56 | Hospitalist Progress Note ---
Date of Service October 11, 2021 Assessment & Plan (1) Acute sore throat: Plan: Patient presents with significant pain and CT evidence of narrowing of his airway. Concern for tracheobronchitis. Currently thrush infection could also cause irritation there. Patient was started on ampicillin sulbactam will be maintained on this with additional Diflucan ordered. Patient given 10 mg dexamethasone in the ER will be continued at 6 mg a day to help with airway inflammation try some carafate suspension to help sooth throat Patient has shown improvement on 10/11 Will monitor overnight, if continues to improve, will discharge in AM. (2) COVID-19: Plan: Reportedly diagnosed as an outpatient on October 07. Currently without significant pulmonary symptoms or hypoxia. On Paxlovid although does report it is underdosed for typical will continue to use this medication as the patient can supply it Patient was started on dexamethasone for his airway he will be maintained on this as it may also benefit if he has any inflammatory spots from COVID (3) BPH with elevated PSA: Plan: Patient has a history of prostate cancer with bony metastasis, maintained on tamsulosin and oxybutynin Patient previous had radiation therapy to his lower back and hip which he relates is from bleeding and passes from his prostate cancer. With his escalation of some lower back pain plain films 10/09/21 Multiple lower thoracic and lumbar spine skeletal lesions, better depicted on prior CT and MRI. These represent metastases. These are not well- visualized by radiography. Interval development of several lumbar spine fractures since CT of July 27, 2021, as described above. on pain control and will check psa and recommend follow up with urology (4) HTN (hypertension): Plan: Takes lisinopril for blood pressure control this will be continued (5) Diabetes: Plan: Please type II diabetic remaining on all alogliptin and empagliflozin level very low sliding scale additional to a carbohydrate sensitive diet. Last hemoglobin A1c in August was 7.3 (6) Hypercholesteremia: Plan: Continues on Zocor (7) Pancytopenia: Plan: chronic for years, prevous work up with hematology, now maybe influenced by covid infection, platelet count improving (8) Lumbar compression fracture: Plan: depicted on plain films new from august 10, localized pain control, maybe metastatic disease Plan: DVT enoxaparin will be warranted given his of history of active malignancy Patient is a full code Admission and Anticipated Discharge Date Admission Date: October 10, 2021 Subjective Patient reports swallowing better. Patient though is not at his baseline. Patient has no new complaints. Review of Systems Review of Systems: All systems reviewed & are unremarkable except as noted in HPI & below Physical Exam Physical Exam: The patient appeared well nourished and normally developed. Vital signs as documented. Head exam is normocephalic atraumatic oral pharynx is only with mild posterior pharynx erythema Neck is without JVD, thyromegaly, or carotid bruits. Lungs are clear to auscultation, no focal loss of breath sounds Cardiac exam, Rhythm is regular. No murmurs, rubs or gallops. Abdominal exam reveals normal bowel sounds, soft non tender, no masses Extremities are nonedematous and both pedal pulses are present Neurologic exam is alert and oriented, no focal loss of strength or sensation Skin is without bruises or rashes Psychologically is without concerns for anxiety or depression.. Results & Data Results & Data ([facility]) Vital Signs (Past 12 Hours) Vital Signs Temp Pulse Resp BP BP Pulse Ox 10/11/21 15:21 36.7 C 46 L 20 103/67 93 10/11/21 08:13 36.8 C 51 L 17 129/72 93 PG Care Time/CCT Total # of Minutes Spent Total Time Spent with Patient: Total time spent is greater than 50% in coordination of care (as documented) at patient's floor/unit and/or counseling patient: Coding Level of Care Code 02420 Subseq Hosp Care Lvl 2 Diagnoses Acute sore throat J02.9 COVID-19 U07.1 BPH with elevated PSA N40.0; R97.20 HTN (hypertension) I10 Diabetes E11.9 Hypercholesteremia E78.00 Pancytopenia D61.818 Lumbar compression fracture S32.000A
[2021-10-11] MEDS: TAMSULOSIN HCL 0.4 MG CAP PO SCH (20:41)
[2021-10-11] MEDS: PANTOprazole 40 MG TAB PO SCH (20:42)
[2021-10-12] MEDS: AMPICILLIN/SULBACTAM SOD 3,000 MG in 0.9 % SODIUM CHLORIDE 100 ML IV SCH ×2 (00:51→06:58)
[2021-10-12] MEDS: FIRST - Mouthwash BLM 119 ML PO SCH ×3 (00:51→13:44)
[2021-10-12] MEDS: oxyCODONE HCL IR 5 MG TAB (IMMEDIATE RELEASE) PO PRN (04:45)
[2021-10-12 06:32] LABS: Hematocrit (blood only) 32.5 % (42-52); Hemoglobin 10.7 g/dL (14.0-18.0); Mean Corpuscular Hemoglobin 33.9 pg (25-34); Mean Corpuscular Hgb Conc 32.9 g/dL (32-36); Mean Corpuscular Volume 102.8 fL (80-100); Mean Platelet Volume 11.3 fL (7.4-10.4); Platelet Count 142 K/uL (130-400); RDW Coefficient of Variation 14.6 % (11.5-14.5); RDW Standard Deviation 55.1 fL (36.4-46.3); Red Blood Count 3.16 M/uL (4.7-6.1); White Blood Count 3.44 K/uL (4.8-10.8)
[2021-10-12 06:56] LABS: BUN Creatinine Ratio 34.6 (10-20); C Reactive Protein 2.26 mg/dl (0-0.5); Calcium 9.8 mg/dl (8.5-10.1); Creatinine Clr Calc Pharmacy 85.4 ml/min; Est GFR (African American) 98.8 ml/min; Est GFR (Non-African American) 85.3 ml/min; Potassium 3.9 mmol/L (3.5-5.1)
[2021-10-12 08:27] VITALS: O2SAT 94
[2021-10-12] MEDS: dexAMETHasone 6 MG in SYRINGE 0 ML IV SCH (08:40)
[2021-10-12] MEDS: FLUCONAZOLE 100 MG/50 ML BAG IV SCH (08:40)
[2021-10-12] MEDS: INSULIN ASPART PER UNIT SC SCH ×2 (09:42→13:21)
[2021-10-12] MEDS: INSULIN GLARGINE SOLOSTAR 100 UNITS/ML 3 ML PEN SC SCH (09:45)
[2021-10-12] MEDS: ENOXAPARIN INJ 40 MG/0.4 ML SYR SQ SCH (09:52)
[2021-10-12] MEDS: OXYBUTYNIN CHLORIDE 5 MG TAB PO SCH (09:53)
[2021-10-12] MEDS: lisinopril 5 MG TAB PO SCH (09:53)
[2021-10-12] MEDS: NIRMATRELVIR/RITONAVIR 1 EA TAB PO SCH (09:53)
[2021-10-12] MEDS: ASPIRIN 81 MG ECTAB PO SCH (09:53)
[2021-10-12] MEDS: DOCUSATE SODIUM 100 MG CAP PO SCH (09:53)
[2021-10-12] MEDS: SUCRALFATE 1 GM/10 ML UDC PO SCH ×2 (09:54→13:44)
[2021-10-12] MEDS ORDERED: AMOXICILLIN/CLAVULANATE 875 MG TAB PO SCH (11:00)
[2021-10-12 15:56] VITALS: PULSE 54; TEMP 98.4
[2021-10-12 17:02] VITALS: BP 129/72
--- NOTE | 2021-10-17 11:46 | Discharge Summary ---
Date of Service October 12, 2021 Admission HPI Per Admitting Provider 81-year-old male with a 2-day history of diagnosis of COVID on Paxlovid as an outpatient. Also recently discharged on October 01 after endovascular aortic aneurysm repair. Presents with escalation of sore throat difficulty swallowing. Significant pain rated 10 out of 10 has previously had oxycodone for his postoperative pain this did not help his discomfort. Patient has a history of metastatic prostate cancer and diabetes In the emergency department patient had a CT scan of the neck soft tissues showing thickening of the aryepiglottic folds right greater than left with a facial of the right piriform sinus mild to moderate supraglottic airway narrowing findings look to be infectious Principal Diagnosis Acute sore throat Discharge Exam The patient appeared well nourished and normally developed. Vital signs as documented. Head exam is normocephalic atraumatic oral pharynx is only with mild posterior pharynx erythema Neck is without JVD, thyromegaly, or carotid bruits. Lungs are clear to auscultation, no focal loss of breath sounds Cardiac exam, Rhythm is regular. No murmurs, rubs or gallops. Abdominal exam reveals normal bowel sounds, soft non tender, no masses Extremities are nonedematous and both pedal pulses are present Neurologic exam is alert and oriented, no focal loss of strength or sensation Skin is without bruises or rashes Psychologically is without concerns for anxiety or depression.. Discharge Data Allergies Allergy/AdvReac Type Severity Reaction Status Date / Time meperidine Allergy Unknown Unknown Verified 09/28/21 08:10 morphine Allergy Unknown Unknown Verified 09/28/21 08:10 Consultations 10/09/21 11:28 ED Decision to Admit Stat Ordered Studies 10/09/21 06:48 CT soft tissue neck w con Stat Hospital Course (1) Acute sore throat: Patient presents with significant pain and CT evidence of narrowing of his airway. Concern for tracheobronchitis. Currently thrush infection could also cause irritation there. Patient was started on ampicillin sulbactam will be maintained on this with additional Diflucan ordered. Patient given 10 mg dexamethasone in the ER will be continued at 6 mg a day to help with airway inflammation try some carafate suspension to help sooth throat Patient has shown improvement on 10/11 Will monitor overnight, if continues to improve, will discharge in AM. Patient continues to improve on 10/12; will discharge. (2) COVID-19: Reportedly diagnosed as an outpatient on October 07. Currently without significant pulmonary symptoms or hypoxia. On Paxlovid although does report it is underdosed for typical will continue to use this medication as the patient can supply it Patient was started on dexamethasone for his airway he will be maintained on this as it may also benefit if he has any inflammatory spots from COVID. will complete 10 days course of dexamethasone at discharge. (3) BPH with elevated PSA: Patient has a history of prostate cancer with bony metastasis, maintained on tamsulosin and oxybutynin Patient previous had radiation therapy to his lower back and hip which he relates is from bleeding and passes from his prostate cancer. With his escalation of some lower back pain plain films 10/09/21 Multiple lower thoracic and lumbar spine skeletal lesions, better depicted on prior CT and MRI. These represent metastases. These are not well- visualized by radiography. Interval development of several lumbar spine fractures since CT of July 27, 2021, as described above. on pain control and will check psa and recommend follow up with urology (4) HTN (hypertension): Takes lisinopril for blood pressure control this will be continued (5) Diabetes: Please type II diabetic remaining on all alogliptin and empagliflozin level very low sliding scale additional to a carbohydrate sensitive diet. Last hemoglobin A1c in August was 7.3 (6) Hypercholesteremia: Continues on Zocor (7) Pancytopenia: chronic for years, prevous work up with hematology, now maybe influenced by covid infection, platelet count improving (8) Lumbar compression fracture: depicted on plain films new from august 10, localized pain control, maybe metastatic disease DVT enoxaparin will be warranted given his of history of active malignancy Patient is a full code Total Time Total Time Spent Total Time Spent (In Minutes): 32 Discharge Plan Discharge Items Patient Disposition: Personal Custodial Reason For Visit: DYSPHAGIA, TRACHEOBRONCTITIS Discharge Diagnosis: tracheobronchitis Activity: Resume your previous activity Non-emergency contact: Primary Care Provider Call non-emergency contact if: you have any medication questions Follow-up/Referrals: Ian Alonso PA-C [Primary Care Provider] - Diet: Carb Consistent or DM2 Diet Texture: Easy to Chew Addtl Attending Provider Instructions: You have been hospitalized for an acute medical problem. During your stay at [facility], we have made an effort to correct the problem that brought you to the hospital while keeping you as comfortable as possible. Medications were used to bring your condition under control and your discharge instructions will include directions for any medications you should take after leaving the hospital. Please make sure you see your Primary Care Provider as part of your follow up plan. Pending Studies at Discharge: No Stand-Alone Forms: [facility] [employer], Smoking Cessation Skilled Items Patient informed of condition?: Yes DNR: No Discharge Level of Care: Other Communicable Disease: Yes Discharge Prognosis: Stable Lines: None Urinary Catheter: No Medications and DC Order Prescriptions: New dexamethasone [Decadron] 6 mg tablet 6 mg PO DAILY Qty: 7 RF: 0 Continued tamsulosin 0.4 mg capsule 0.4 mg PO BID RF: 0 simvastatin 40 mg tablet 40 mg PO QAM RF: 0 hydrocodone-acetaminophen 5-325 mg tablet 1 tab PO Q4H PRN (Reason: Pain) RF: 0 aspirin 81 mg Tablet,Delayed Release (Dr/Ec) 81 mg PO DAILY RF: 0 dimenhydrinate [Dramamine] 50 mg Tablet 50 mg PO DIRECTED PRN (Reason: Motion Sickness) RF: 0 alogliptin 12.5 mg Tablet 12.5 mg PO QAM RF: 0 empagliflozin 25 mg Tablet 25 mg PO QAM RF: 0 melatonin 3 mg Tablet 3 mg PO HS PRN (Reason: sleep) Qty: 10 RF: 0 acetaminophen 325 mg Tablet 650 mg PO Q4H PRN (Reason: Pain) RF: 0 sennosides-docusate sodium [Senna-Time S] 8.6-50 mg Tablet 1 tab-cap PO HS PRN (Reason: Constipation) RF: 0 pantoprazole 40 mg Tablet,Delayed Release (Dr/Ec) 40 mg PO HS RF: 0 ibuprofen 200 mg Tablet 600 mg PO Q8H PRN (Reason: Pain) RF: 0 docusate sodium 100 mg Capsule 100 mg PO BID RF: 0 lisinopril 5 mg Tablet 5 mg PO QAM RF: 0 oxybutynin chloride 5 mg Tablet 5 mg PO BID RF: 0 PNV comb no.58-iron bisgly-FA 10-400 mg-mcg Capsule 1 cap PO QAM RF: 0 oxycodone-acetaminophen [Percocet] 5-325 mg tablet 1 tab PO Q8H PRN (Reason: pain) Qty: 7 RF: 0 Paxlovid (EUA) 150 mg x 2- 100 mg tablet 1 tab PO DAILY RF: 0 Discharge Orders: Discharge Order (Routine); Ordered 10/12/21 Ordered By: Bayron Bass/Other Patient Handouts: Managing Type 2 Diabetes Admission Data Admit Date/Time: 10/10/21 14:11 Attending Provider: Bayron Blackman Admit Provider: Maxim Martinez Primary Care Provider: Ian Alonso Other Providers: Maxim Martinez ; [facility] Other Interventions: Discharge Summary Assessment (RN) Last Done: 10/12/21 17:01 Coding Level of Care Code D/C DAY MANAGEMENT >30 MINS Diagnoses Acute sore throat J02.9 COVID-19 U07.1 BPH with elevated PSA N40.0; R97.20 HTN (hypertension) I10 Diabetes E11.9 Hypercholesteremia E78.00 Pancytopenia D61.818 Lumbar compression fracture S32.000A
--- NOTE | 2021-10-19 15:12 | Coding Query ---
CODING QUERY To promote full compliance with coding requirements relating to patient care, provider participation is requested in all cases of house manager uncertainty. Please assist us with the question(s) below: Coding Question(s): Please specify below, in your clinical opinion, regarding all the source(s) of Acute Sore Throat. ( ) Acute Postoperative Pain ( ) Possible Tracheobronchitis. Please specify below, in our clinical opinion: ( ) likely postoperative complication ( ) not a postoperative complication ( ) Other: Please Specify ( ) Possible Thrush. Please specify further below as to the site and regarding possible complication of surgery: ( ) Bronchitis Thrush. Please specify below, in our clinical opinion: ( ) likely postoperative complication ( ) not a postoperative complication ( ) Other: Please Specify ( ) Oral Thrush. Please specify below, in our clinical opinion: ( ) likely postoperative complication ( ) not a postoperative complication ( ) Other: Please Specify ( ) Other site Thrush, Please Specify . Please specify below, in our clinical opinion: ( ) likely postoperative complication ( ) not a postoperative complication ( ) Other: Please Specify ( x ) COVID-19 Infection ( ) Other: Please Specify Physician's Response(s): Thank you Ibis Carlos Principal Diagnosis: "that condition established after study, to be chiefly responsible for occasioning the admission of the patient to the hospital for care." Co-Existing Principal Diagnosis: "when two or more diagnoses equally meet the criteria for principal diagnosis as determined by the circumstances of admission, diagnostic work up, and/or therapy provided, and the Alphabetic Index, Tabular List, or another coding guideline does not provide sequencing direction, any one of the diagnoses may be sequenced first." "When the physician has documented what appears to be a current diagnosis in the body of the record, but has not included the diagnosis in the final diagnostic statement, the physician should be asked whether the diagnosis should be added." (Source Coding Clinic 2 QTR90. p3-4) ZUHAIR
== END 2021-10-12 17:23 | disposition home or self-care (01) | DRG 178 ==
LOC: 2S 05:30 → ED 05:30 → 2S 12:37 → SUATTDRO 10-10 14:11 → 3W 10-10 16:37